=== PATIENT | female | born 1990 | race Caucasian/White ===

== ENCOUNTER 2025-02-24 12:39 | Emergency (ER) | payer BC, SELFPAY ==
--- OUTSIDE RECORDS SUMMARY | 2025-01-15 15:00 | XMS_ITS | Encounter Summary ---
Author Organization Healthcare Address [address] [place] [address] Care Team Providers Care Bean Roaster Name Role Phone Beata Dixon APRN Primary Care Provider [phone] Reason for Referral * Consultation (Routine) - Closed Specialty Diagnoses / Procedures Referred By Jacobo marte Referred To Contact Ophthalmology Diagnoses Rash of face Jony Berman MD [address] [address] Phone: tel: fax: [facility] [address] [place] [address] Phone: tel: fax: Referral ID Status Reason Start Date Expiration Date V isits Requested Visits Authorized [id number] Closed Specialty Services Required 01/15/2025 07/17/2026 1 1 Reason for Visit * Reason Comments Follow-up Encounter Details Date Type Department Care Team (Late st Contact Info) Description 01/15/2025 3:00 PM EDT [facility] [address], [address]rd [place] [address] Jony Berman MD [address] [address] Rash of face (Primary Dx) Social History Tobacco Use Types Packs/Day Years Used Date Smoking Tobacco: Every Day Cigarettes 0.6 22.7 Started: 06/12/2002 Passive Smoke Exposure: Current Smokeless Tobacco: Never Tobacco Cessation:Ready to Q uit: Not Asked; Counseling Given: Not Answered Alcohol Use Standard Drinks/Week Comments No 0 (1 standard drink = 0.6 oz pur e alcohol) PHQ-2 Answer Date Recorded Patient Health Questionnaire-2 Score 0 10/18/2024 PHQ-9 Answer Date Recorded Patient Health Questionnaire-9 Score 0 10/18/2024 Humiliation, Afraid, Rape, and Kick questionnair e Answer Date Recorded Within the last year, have y ou been afraid of your partner or ex-partner? No 11/13/2024 Within the last year, have y ou been humiliated or emotionally abused in other ways by your partner or ex-partner? No Within the last year, have y ou been kicked, hit, slapped, or otherwise physically hurt by your partner or ex-partner? No 11/13/2024 Within the last year, have y ou been raped or forced to have any kind of sexual activity by your partner or ex-partner? No 11/13/2024 Hunger Vital Sign Answer Date Recorded Within the past 12 months, y ou worried that your food would run out before you got the money to buy more. Never true 11/14/19 25 Within the past 12 months, t he food you bought just didn't last and you didn't have money to get more. Never true 11/13/2024 PRAPARE - Transportation Answer Date Re corded In the past 12 months, has l ack of transportation kept you from medical appointments or from getting medications? No 09/2024 In the past 12 months, has l ack of transportation kept you from meetings, work, or from getting things needed for daily living? No 11/13/2024 Housing Stability Vital Sign Answer Oliver e Recorded In the last 12 months, was t here a time when you were not able to pay the mortgage or rent on time? No 11/13/2024 Number of Times Moved in the Last Year Not on fi le 11/13/2024 At any time in the past 12 m [facility], were you homeless or living in a mcc (including now)? No 11/13/2024 Safety and Environment Answer Date Fredy rded Do you worry that your child may have been physically abused? No 02/15/2024 Do you worry that your child may have been sexua lly abused? No 02/15/2024 Are there any guns kept in o r around your home or where your child spends time? No 02/15/2024 Guns Unloaded or Locked Away Not on file 10/2023 Utilities Answer Date Recorded In the past 12 months has [employer], oil, or water [employer] threatened to shut off services in your home? No 11/13/2024 PHQ-2A Answer Date Recorded Patient Health Questionnaire-2 Score 0 07/01/2022 Comments No Sex and Gender Information Value Date Recorded Sex Assigned at Not on file Legal Sex Female 6:22 PM EDT Gender Identity Not on file Sexual Orientation Not on file documented as of this encounter Last Filed Vital Signs Vital Sign Reading Time Taken Comments Blood Pressure 150/91 01/15/2025 3:02 PM EDT Pulse - - Temperature - - Respiratory Rate - - Oxygen Saturation - - Inhaled Oxygen Concentration - - Weight 53 kg (116 lb 13.5 oz) 01/15/2025 3:02 PM EDT Height - - Body Mass Index 20.7 12/06/2024 2:04 PM EDT documented in this encounter Miscellaneous Notes * Progress Notes - Jony Berman MD - 01/15/2025 3:00 PM EDT Dear No ref. provider found I had the pleasure of evaluating your patient. My full evaluation is as follows. HPI: This is a 34 y.o. female who presents for follow up of facial rash. She states it has been present for many months. It at times is red and warm and swollen. It feels tender to her, so she is notwashing her face. She had a MRSA infection initially, and she worries it isn't gone away. She did see dermatology, and they told her it was seborrheic dermatitis - but she feels whatever is going on may be deeper. She states that she did not think they were taking her concerns seriously. She saw rheumatology. She has seen ID. She is not really having nasal drainage. She does feel some nasal congestion. She does note that her fingers are purple and cold. Past Medical History: Reviewed Past Surgical History: Reviewed Medications: Reviewed Allergies: Reviewed Family History: Reviewed and noncontributory. Social History: Reviewed and noncontributory. ROS: A 14 point ROS was completed and is not pertinent aside from the above. Physical Exam: General: No acute distress, generally healthy appearing, and alert and oriented x3. Head/Face: Atraumatic and normocephalic. Sinuses are nontender to palpation. Malar rash with almosthoneycombed crusting. Eyes: Pupils are equal. Extraocular muscles are intact. Nose: Her nose is so tender she did not want us to use a speculum. Therefore, we used the endoscopeand light to simply perform rhinoscopy without touching her nose. Mucosa is healthy. Septum is midline. No inferior turbinate hypertrophy. No obvious masses or polyps. Oral Cavity/Oropharynx: Moist mucous membranes. No masses or lesions noted. Skin: No obvious rashes or lesions. Psychiatric: Normal mood. Normal affect. Judgment is appropriate. Respiratory: Breathing comfortably at a normal rate. No accessory muscle usage. Cardiac: Good turgor. Good cap refill. Procedure: Similar to her last visit, I used to endoscope to get a slightly better view of her anterior rhinoscopy as she wants to avoid nasal speculum usage. Results: I personally reviewed her CT images on December 01, 2024. She has no significant sinonasal inflammationaside from a slight left frontal area of inflammation. I previously reviewed her CT images from July 2024 and March 2024 scans. She has mild maxillary inflammation bilaterally. She does also seem to have a retention cyst in the right posterior ethmoid compartment. Assessment: This is a 34 y.o. female with either an autoimmune or dermatologic condition. Plan: She does certainly have a facial rash. She also has Raynauds. I do not have a clear etiology for her symptoms, but I suspect either a rheumatologic condition or a dermatologic condition. She is worried about her vision and she has some light sensitivity. I will refer her to ophthalmology. I do not believe that her sinuses are causative for her. Thank you for involving me in the care of your patient. Please don't hesitate to contact me if you have any questions or concerns. Jony Berman MD The patient has been counseled on tobacco cessation: Not Applicable documented in this encounter Plan of Treatment Upcoming Encounters Date Type Department Care Team (Late st Contact Info) Description 02/26/2025 3:45 PM EDT Office Visit [facility] Otolaryngology [address]rd [place] [address] Juan Francisco Duarte MD [address] [facility] [address] [place] [address] 03/03/2025 10:30 AM EDT Office Visit [facility] [address] [place] [address] Abby Fox [address] [place] [address] 03/12/2025 12:30 PM EDT Consult [facility] [address], [address] [place] [address] Thierry Walton DO [address] [facility] [address] [place] [address] 03/27/2025 9:00 AM EDT Office Visit Medical Office Building Obstetrics and Gynecology [address] [facility], [address] [place] [address] Nandini Segura, MARKING DEVICES ASSEMBLER [address] [facility] [address] [place] [address] 08/08/2025 9:00 AM EST [facility] Room [address] [place] [address] Jenny Prieto, DDS [address] [facility] [address] [place] [address] Scheduled Referrals Name Type Priority Associated Diagnoses Order Schedule Ambulatory referral to Ophthalmology Outpatient Referral Routine Rash of face 1 Occurrences starting 01/15/2025 until 07/19/2026 documented as of this encounter Visit Diagnoses Diagnosis Rash of face- Primary documented in this encounter Additional Health Concerns Infection Onset Date Last Indicated Resolved Time MRSA 03/18/2024 03/18/2024 Assessment Noted Time PHQ-9 Depression Total Score: 0 10/19/19 11:09 AM EDT A fall risk assessment has been complete d for the patient 10/18/2024 11:09 AM EDT A Body Mass Index follow-up plan has been documented for the patient 01/15/2025 3:35 PM EDT documented as of this encounter Care Teams Bean Roaster Relationship Specialty Start Date End Date Beata Dixon, STEPHANIE [address] [place] [address] PCP - General Family Medicine 10/10/24 documented as of this encounter
--- OUTSIDE RECORDS SUMMARY | 2025-01-23 10:30 | XMS_ITS | Encounter Summary ---
Author Organization [facility] Address [address] [place] [address] Care Team Providers Care Slasher Runner Name Role Phone Beata Dixon APRN Primary Care Provider [phone] Reason for Visit * Reason Comments Eye Pain Blurred Vision * Consultation (Routine) - Closed Specialty Diagnoses / Procedures Referred By Jacobo marte Referred To Contact Ophthalmology Diagnoses Rash of face Jony Berman MD [address] [facility] [address] [place] [address] Phone: tel: fax: [facility] [address] [place] [address] Phone: tel: fax: Referral ID Status Reason Start Date Expiration Date V isits Requested Visits Authorized [id number] Closed Specialty Services Required 01/15/2025 07/17/2026 1 1 Encounter Details Date Type Department Care Team (Late st Contact Info) Description 01/23/2025 10:30 AM EDT Office Visit [facility] [address] [place] [address] Abby Fox [address] [place] [address] Squamous blepharitis of upper and lower eyelids of both eyes (Primary Dx) Social History Tobacco Use Types Packs/Day Years Used Date Smoking Tobacco: Every Day Cigarettes 0.6 22.7 Started: 06/12/2002 Passive Smoke Exposure: Current Smokeless Tobacco: Never Alcohol Use Standard Drinks/Week Comments No 0 [...] any time in the past [address] [facility], were you homeless or living in a fci (including now)? No 11/13/2024 Safety and Environment [...] Recorded In the past 12 months has geovanni e electric, gas, oil, or water company threatened to shut off services in your home? No 11/13/2024 PHQ-2A Answer Date Recorded Patient Health Questionnaire-2 Score 0 07/01/2022 Comments No Sex and Gender Information Value Date Recorded Sex Assigned at Not on file Legal Sex Female 6:22 PM EDT Gender Identity Not on file Sexual Orientation Not on file documented as of this encounter Miscellaneous Notes * Patient Instructions - Abby Fox - 01/23/2025 10:30 AM EDT Hypochlorous acid spray * Progress Notes - Abby Fox - 01/23/2025 10:30 AM EDT 01/23/2025 Patient ID: Arely Carnes is a 34 y.o. female. Patient presents for consultation at the request of Jony Berman MD. HPI Chief Complaint Eye Pain; Blurred Vision HPI Arely Carnes is a 34 y.o. female who presents for consultation requested by Jony Berman MD[facility] causing eye pain and blurred vision. Pt states that back in March she contracted MRSA at the bridge of her nose. Pt reports that its causing both of her eyes to water excessively but mainly the right eye (OD). Pt reports light sensitivity. Pt reports pain when moving her eyes. Pt reports both eyes being blurry. Pt reports that she can't really breath out of her nose. Last edited by Bridget Zurita on 01/23/2025 11:13 AM. Subjective Past Medical History[1] Surgical History[2] Family History[3] Social History[4] Allergies[5] Lab Results Component Value Date HGBA1C 5.3 09/08/2023 ROS Positive for: Eyes Negative for: Constitutional, Gastrointestinal, Neurological, Skin, Genitourinary, Musculoskeletal,HENT, Endocrine, Cardiovascular, Respiratory, Psychiatric, Allergic/Imm, Heme/Lymph Last edited by Bridget Zurita on 01/23/2025 11:02 AM. Current Outpatient Medications (Ophthalmic Drugs) Medication Sig erythromycin (Romycin) 5 MG/GM ophthalmic ointment Apply 1 Application to both eyes 2 times a day for 14 days. No current facility-administered medications for this visit. (Ophthalmic Drugs) Current Outpatient Medications (Other) Medication Sig Buprenorphine HCl-Naloxone HCl (Suboxone) 8-2 MG SL film TAKE 2 FILMS SUBLINGUALLY ONCE DAILY ketoconazole (NIZOral) 2 % cream Apply topically 2 times a day. Use on face as directed. Probiotic Product (PROBIOTIC DAILY PO) Take by mouth. ibuprofen 600 MG tablet Take 1 tablet (600 mg) by mouth every 6 (six) hours. (Patient not taking: Reported on 01/23/2025) No current facility-administered medications for this visit. (Other) Objective Base Eye Exam Visual Acuity (Snellen - Linear) Right Left Dist sc 20/20 20/20 Pt defers. Tonometry Pt defers Pupils Pupils Right PERRL Left PERRL Pt defers Visual [place]aza Right Left Full Full Extraocular Movement Right Left Full Full Full but limited. Reduced patient participation Neuro/Psych Oriented x3: Yes Mood/Affect: Normal Slit Lamp and Fundus Exam Slit Lamp Exam Right Left Lids/Lashes 4+ Blepharitis, Collarettes 4+ Blepharitis, Collarettes Conjunctiva/Sclera injection Normal Cornea nasal infiltrate, debris in tear film Debris in tear film Anterior Chamber unable unable Iris Normal pupil size and shape Normal pupil size and shape Lens Clear Clear Assessment/Plan Assessment & Plan Squamous blepharitis of upper and lower eyelids of both eyes Patient reports having severe pain and limits in ocular movement due to aching. Exam limited by patient participation. Discussed findings with patient and concerns regarding lid hygiene Patient has severe blepharitis with severe buildup on lids and lashes. Few infiltrates suspicious for staph aureus sensitivity reaction from blepharitis. Patient has not been washing/cleaning face due to fear that she is having reaction to water. Discussed option of using distilled water for cleansing. Recommend using hyperchlorous acid spray at least twice daily to improve lid hygiene. Provided patient with sterile saline for cleaning with cotton tipped applicator for cleaning lashes. Start emycin grace bid OU. Will re-check in 2 weeks. Follow up for 2 weeks. Letter sent to referring provider Tobacco Use History[6] The patient has been counseled on tobacco cessation: Yes [1] Past Medical History: Diagnosis Date Headache Personal history of other diseases of the digestive system History of colitis [2] Past Surgical History: Procedure Laterality Date SECTION, CLASSIC SECTION, LOW TRANSVERSE CHOLECYSTECTOMY [3] Family History Problem Relation Name Age of Onset Coronary artery disease Father [4] Social History Socioeconomic History Marital status: Tobacco Use Smoking status: Every Day Current packs/day: 0.25 Average packs/day: 0.6 packs/day for 22.6 years (13.3 ttl pk-yrs) Types: Cigarettes Start date: 06/12/2002 Passive exposure: Current Smokeless tobacco: Never Vaping Use Vaping status: Never Used Substance and Sexual Activity Alcohol use: No Drug use: Defer Sexual activity: Yes Social History Narrative Marital Status: Social Drivers of Health Food Insecurity: No Food Insecurity (11/13/2024) Hunger Vital Sign Worried About Running Out of Food in the Last Year: Never true Ran Out of Food in the Last Year: Never true Transportation Needs: No Transportation Needs (11/13/2024) PRAPARE - Transportation Lack of Transportation (Medical): No Lack of Transportation (Non-Medical): No Received from [employer] ([place], [place], [place], [place]) Family and Community Support Intimate Partner Violence: Not At Risk (11/30/2024) Received from [facility] Abuse Screen Feels Unsafe at Home or Work/School: no Feels Threatened by Someone: no Does Anyone Try to Keep You From Having Contact with Others or Doing Things Outside Your Home?: no Physical Signs of Abuse Present: no Housing Stability: Unknown (11/13/2024) Housing Stability Vital Sign Unable to Pay for Housing in the Last Year: No Homeless in the Last Year: No [5] No Known Allergies [6] Social History Tobacco Use Smoking Status Every Day Current packs/day: 0.25 Average packs/day: 0.6 packs/day for 22.6 years (13.3 ttl pk-yrs) Types: Cigarettes Start date: 06/12/2002 Passive exposure: Current Smokeless Tobacco Never Cosigned by Gogo Almeida, OD at 01/29/2025 7:19 PM EDT Associated attestation - Gogo Almeida, OD - 01/29/2025 7:19 PM EDT I saw and evaluated the patient with the resident/fellow. I discussed the case with the resident/fellow and agree with the findings and plan as documented. documented in this encounter Plan of Treatment Upcoming Encounters Date Type Department Care Team (Late st Contact Info) Description 02/26/2025 3:45 PM EDT Office Visit [facility] Otolaryngology [address], [address] [place] [address] Juan Francisco Duarte MD [address] [facility] [address] [place] [address] 03/03/2025 10:30 AM EDT Office Visit [facility] [address] [place] [address] Abby Fox [address] [place], [place] [id number] 03/12/2025 12:30 PM EDT Consult [facility] [address] [place] [address] Thierry Walton DO [address] [facility] [address] [place] [address] 03/27/2025 9:00 AM EDT Office Visit Medical Office Building Obstetrics and Gynecology [address] [facility], [address] [place] [address] Nandini Segura, LIME KILN AND RECAUSTICIZING OPERATOR [address] [facility] [address] [place] [address] 08/08/2025 9:00 AM EST [facility] Visit [facility] Room [address]214 [address] [place] [address] Jenny Prieto, DDS [address] [facility] [address] [place] [address] documented as of this encounter Visit Diagnoses Diagnosis Squamous blepharitis of upper and lower eyelids of both eyes- Primary documented in this encounter Additional Health Concerns Infection Onset Date Last Indicated Resolved Time MRSA 03/18/2024 03/18/2024 Assessment Noted Time PHQ-9 Depression Total Score: 0 10/19/19 11:09 AM EDT A fall risk assessment has been complete d for the patient 01/23/2025 11:02 AM EDT A Body Mass Index follow-up plan has been documented for the patient 01/15/2025 3:35 PM EDT documented as of this encounter Care Teams Slasher Runner Relationship Specialty Start Date End Date Beata Dixon APRN [address] [place] [address] PCP - General Family Medicine 10/10/24 documented as of this encounter
--- OUTSIDE RECORDS SUMMARY | 2025-02-04 09:30 | XMS_ITS | Encounter Summary ---
Author Organization Healthcare Address [address] [place] [address] Care Team Providers Care Axminster Weaver Name Role Phone ZackBeata hughes Gilberto BROWN Primary Care Provider [phone] Encounter Details Date Type Department Care Team (Late st Contact Info) Description 02/04/2025 9:30 AM EDT Office Visit [facility] [address] [place] [address] Jony Berman MD [address] [place] [address] Rash of face (Primary Dx) Social [...] any time in the past 12 m [facility], were you homeless or living in a group home (including now)? No 11/13/2024 Safety and Environment [...] Recorded In the past 12 months has th e electric, gas, oil, or water company [...] Sign Reading Time Taken Comments Blood Pressure - - Pulse - - Temperature - - Respiratory Rate - - Oxygen Saturation - - Inhaled Oxygen Concentration - - Weight 53 kg (116 lb 13.5 oz) 02/04/2025 9:56 AM EDT Height 160 cm (5' 3 ) 02/04/2025 9:56 AM EDT Body Mass Index 20.7 02/04/2025 9:56 AM EDT documented in this encounter Miscellaneous Notes * Progress Notes - Jony Berman MD - 02/04/2025 9:30 AM EDT Dear Beata Dixon APRN I had the pleasure of evaluating your [...] is going on may be deeper. She is now seeing [facility] and has a skin biopsy planned. She saw rheumatology. She has seen ID. [...] equal. Extraocular muscles are intact. Nose: Her nasal exam appears unchanged. There is external skin change. Oral Cavity/Oropharynx: Moist mucous membranes. No masses [...] to avoid nasal speculum usage. Results: I previously reviewed her CT images on December 01, [...] clear etiology for her symptoms, but I encouraged her to continue follow up with dermatology to potentially diagnose her condition so it can be treated. I appreciate her ophthalmology evaluation - documentation reviewed. I do not believe that her sinuses [...] Description 02/26/2025 3:45 PM EDT Office Visit [facility] Otolaryngology [address] [place] [address] Juan Francisco Duarte MD [address] [place] [address] 03/03/2025 10:30 AM EDT Office Visit [facility] [address] [place] [address] Abby Fox [address] [place] [address] 03/12/2025 12:30 PM EDT Consult [facility] [address] [place] [address] Thierry Walton DO [address] [place] [address] 03/27/2025 9:00 AM EDT Office Visit Medical Office Building Obstetrics and Gynecology [address] [facility], [address] [place] [address] Nandini Segura APRN [address] [facility] [address] [place] [address] 08/08/2025 9:00 AM EST Office Visit [facility] Room [address]214 [address] [place] [address] Jenny Prieto, DDS [address] [facility] [address] [place] [address] documented as of this encounter [...] plan has been documented for the patient 02/04/2025 10:34 AM EDT documented as of this encounter Care Teams Axminster Weaver Relationship Specialty Start Date End Date Beata Dixon APRN [address] [place] [address] PCP - General Family Medicine 10/10/24 documented as of this encounter
--- OUTSIDE RECORDS SUMMARY | 2025-02-13 11:45 | XMS_ITS | Encounter Summary ---
Author Organization Healthcare Address [address] [place] [address] Care Team Providers Care Seaming Machine Operator Name Role Phone Beata Dixon Gilberto BROWN Primary Care Provider Reason for Visit * Reason Comments Follow-up Pt would like to be scoped Encounter Details Date Type Department Care Team (Late st Contact Info) Description 02/13/2025 11:45 AM EDT [facility] [address] [place] [address] Jony Berman MD [address] [place] [address] Rash of face (Primary Dx); Atypical facial pain Social History Tobacco Use Types Packs/Day Years [...] any time in the past 12 m [facility], were you homeless or living in a penitentiary (including now)? No 11/13/2024 Safety and Environment [...] Sign Reading Time Taken Comments Blood Pressure 154/95 02/13/2025 12:05 PM EDT Pulse 93 02/13/2025 12:05 PM EDT Temperature - - Respiratory Rate - - Oxygen Saturation - - Inhaled Oxygen Concentration - - Weight 52.3 kg (115 lb 4.8 oz) 02/13/2025 12:05 PM EDT Height 160 cm (5' 3 ) 02/13/2025 12:05 PM EDT Body Mass Index 20.42 02/13/2025 12:05 PM EDT documented in this encounter Miscellaneous Notes * Progress Notes - Jony Berman MD - 02/13/2025 11:45 AM EDT Dear Jony Berman MD I had the pleasure of evaluating your patient. My full evaluation is as follows. HPI: This is a 34 y.o. female who presents for follow up of facial rash. Her complaints are unchanged. She has a facial rash. She is worried that this is related to a MRSA infection she had. I sent her to dermatology and rheumatology, and she is undergoing workup with them. She does not feel they have taken her complaints seriously. She again comes in concerned that something is affecting deep inside her nose. Past Medical History: Reviewed Past Surgical History: [...] have a clear etiology for her symptoms, and I again reiterated that this does not seem to be a sinus or nasal issue based off ofher largely normal CT scan. I reiterated that we are happy to help her coordinate care if she has difficulty, but I do not believe she needs further evaluation or intervention from a sinonasal standpoint. I encouraged her to continue follow up with dermatology to potentially diagnose her condition so itcan be treated. I appreciate her ophthalmology evaluation - documentation reviewed. She will follow up with me as needed. Thank you for involving me in the care of your patient. Please don't hesitate to contact me if you have any questions or concerns. Jony Berman MD The patient has been counseled on tobacco cessation: Not Applicable documented in this encounter Plan of Treatment Upcoming Encounters Date Type Department Care Team (Late st Contact Info) Description 02/26/2025 3:45 PM EDT Office Visit [facility] Otolaryngology [address], [address] [place] [address] RebeccaJuan Francisco MD [address] [place] [phone] 03/03/2025 10:30 AM EDT Office Visit [facility] Eye [facility] [address] [place] [phone] Fox, Abby E [address] [place] [address] 03/12/2025 12:30 PM EDT Consult [facility] [address] [place] [address] Thierry Walton DO [address] [place] [address] 03/27/2025 9:00 AM EDT Office Visit Medical Office Building Obstetrics and Gynecology [address] [facility], [address] [place] [address] Nandini Segura APRN [address] [facility] [address] [place] [address] 08/08/2025 9:00 AM EST Office Visit [facility] [address] [place] [address] Jenny Prieto, DDS [address] [facility] [address] [place] [address] documented as of this encounter Visit Diagnoses Diagnosis Rash of face- Primary Atypical facial pain Atypical face pain documented in this encounter Additional Health Concerns Infection Onset Date Last Indicated Resolved Time MRSA 03/18/2024 03/18/2024 Assessment Noted Time PHQ-9 Depression Total Score: 0 10/19/19 25 11:09 AM EDT A fall risk assessment has been complete d for the patient 01/23/2025 11:02 AM EDT A Body Mass Index follow-up plan has been documented for the patient 02/13/2025 8:46 PM EDT documented as of this encounter Care Teams Seaming Machine Operator Relationship Specialty Start Date End Date Beata Dixon APRN [address] [place] [address] PCP - General Family Medicine 10/10/24 documented as of this encounter
--- OUTSIDE RECORDS SUMMARY | 2025-02-19 12:40 | XMS_ITS | Encounter Summary ---
Author Organization [facility] Address [address] [place], [place] [id number] Care Team Providers Care Chain Hooker Name Role Phone Beata Dixon APRN Primary Care Provider [phone] Reason for Referral * Consultation (Urgent) - Authorized Specialty Diagnoses / Procedures Referred By Jacobo marte Referred To Contact Neurology Diagnoses Facial pain Chronic nonintractable headache, unspecified headache type Light [place] [address] Phone: tel: fax: Referral ID Status Reason Start Date Expiration Date Visits Requested Visits Authorized [id number] Authorized Specialty Services Required 02/19/2025 08/21/2026 1 1 Reason for Visit * Reason Comments Facial Swelling Encounter Details Date Type Department Care Team (Latest Contact Info) Description 02/19/2025 12:40 PM EDT Office Visit [facility] [address] [place] [address] [place] [address] Facial rash (Primary Dx); Facial pain; Chronic nonintractable headache, unspecified headache type; Light sensitivity Social History Tobacco Use Types Packs/Day Years Used Date Smoking Tobacco: Every Day Cigarettes 0.6 22.7 Started: 06/12/2002 Passive Smoke Exposure: Current Smokeless Tobacco: Never Tobacco Cessation:Ready to Q uit: No; Counseling Given: Yes Alcohol Use Standard Drinks/Week Comments No 0 (1 standard drink = 0.6 oz pur e alcohol) PHQ-2 Answer Date Recorded Patient Health Questionnaire-2 Score 0 02/19/2025 PHQ-9 Answer Date Recorded Patient Health Questionnaire-9 Score 0 02/19/2025 Humiliation, Afraid, Rape, and Kick questionnair e [...] any time in the past 12 m [facility], were you homeless or living in a assisted (including now)? No 11/13/2024 Safety and Environment [...] Recorded In the past 12 months has [employer] electric, gas, oil, or water company threatened [...] Sign Reading Time Taken Comments Blood Pressure 114/74 02/19/2025 1:06 PM EDT Pulse 79 02/19/2025 1:06 PM EDT Temperature - - Respiratory Rate - - Oxygen Saturation 99% 02/19/2025 1:06 PM EDT Inhaled Oxygen Concentration - - Weight 52 kg (114 lb 10.2 oz) 02/19/2025 1:06 PM EDT Height 157.5 cm (5' 2 ) 02/19/2025 1:06 PM EDT Body Mass Index 20.97 02/19/2025 1:06 PM EDT documented in this encounter Functional Status * Over the past 2 weeks, how often have you been bothered by any of the following problems? Question Answer Date of Assessment Author Little interest or pleasure in doing things Not at all 02/19/2025 1:07 PM EDT Carlton Dey Feeling down, depressed, or hopeless Not at all 02/19/2025 1:07 PM EDT Anjel Dey R Patient Health Questionnaire-2 Score 0 02/19/2025 1:07 PM EDT Thuy Dey * Question Answer Date of Assessment Author Trouble falling or staying asleep, or sleeping too much Not at all 02/19/2025 1:07 PM EDT Silvino Garsia Feeling tired or having little energy Not at all 02/19/2025 1:07 PM EDAnjel Zuniga Poor appetite or overeating Not at all 02/19/2025 1: 07 PM Silvino Dhillon Feeling bad about yourself - or that you are a failure or have let yourself or your family down Not at all 02/19/2025 1:07 PM Anjel Dhillon Trouble concentrating on things, such as reading the newspaper or watching television Not at all 02/19/2025 1:07 PM Anjel Dhillon Moving or speaking so slowly that other people could have noticed? Or the opposite - being so fidgety or restless that you have been moving around a lot more than usual. Not at all 02/19/2025 1:07 PM Silvino Cao Thoughts that you would be better off or hurting yourself in some way Not at all 02/19/2025 1:07 PM Carlton Dhillon Patient Health Questionnaire-9 Score 0 02/19/2025 1:07 PM Thuy Dhillon * Calculated C-SSRS Risk Score (Lifetime/Recent) Answer Date of Assessment Author No Risk Indicated 02/19/2025 1:07 PM Silvino Cao * If you checked off any problems on this questionnaire so far, Question Answer Date of Assessment Author How difficult have these problems made it for you to do your work, take care of things at home, or get along with other people? Not difficult at all 02/19/2025 1:07 PM Carlton Dhillon * Question Answer Date of Assessment Author 1. Wish to be (Past 1 Month) No 025 1:07 PM Silvino Dhillon 2. Non-Specific Active Suici rosalee Thoughts (Past 1 Month) No 02/19/2025 1:07 PM Jose Dhillon 6. Suicidal Behavior (Lifetime) No 1:07 PM Silvino Dhillon documented as of this encounter Miscellaneous Notes * Progress Notes - Beata Dixon APRN - 02/19/2025 12:40 PM EDT Subjective Patient ID: Arely Carnes is a 34 y.o. female. Chief Complaint Patient presents with Facial Swelling Here for follow-up on facial rash. This is a chronic issue for which she has seen several specialists including dermatology, ENT, ID, and rheumatology. She has been treated with Bactrim, doxycycline,Augmentin, and prednisone without improvement. Derm had her on topical ketoconazole and steroid forseborrheic dermatitis, but patient says it didn't help. She also recently saw ophthalmology due to eye symptoms. They prescribed erythromycin ophthalmic, but patient says she isn't currently using this. Now just washing the face with soap and water. Has follow-up with the eye doctor next week. She reports ongoing pain and pressure across the face, behind eyes and forehead that is causing headaches. Reports pus leaking out of her eyes and sun sensitivity. Followed up with ENT yesterday, they didn't see anything. They were concerned for mental illness. Patient denies depression or anxiety. Leola sees a counselor once/month. The following portions of the chart were reviewed this encounter and updated as appropriate: Tobacco Allergies Meds Problems Med Hx Surg Hx Fam Hx Current Medications[1] Review of Systems A 14 point ROS reviewed and is otherwise negative except as per HPI. Objective Visit Vitals BP 114/74 Pulse 79 Ht 1.575 m (5' 2 ) Wt 52 kg (114 lb 10.2 oz) SpO2 99% BMI 20.97 kg/m?? OB Status Having periods Smoking Status Every Day BSA 1.51 m?? Body mass index is 20.97 kg/m??. Physical Exam Vitals reviewed. Constitutional: General: She is not in acute distress. HENT: Right Ear: External ear normal. Left Ear: External ear normal. Mouth/Throat: Mouth: Mucous membranes are moist. Eyes: Conjunctiva/sclera: Conjunctivae normal. Pulmonary: Effort: Pulmonary effort is normal. Skin: General: Skin is warm and dry. Comments: Facial rash that appears improved from patient's last visit in November. Neurological: Mental Status: She is alert and oriented to person, place, and time. Psychiatric: Behavior: Behavior normal. Comments: Flat affect. Assessment/Plan 1. Facial rash (Primary) Actually appears a little improved from the last time I saw her. Continue with Dermatology as scheduled. 2. Facial pain 3. Chronic nonintractable headache, unspecified headache type 4. Light sensitivity Chronic, worsening condition. Unclear etiology despite significant workup. Discussed possible causes. Continue with eye doctor as scheduled. Will have her evaluated by Neurology as well. Discussed that if they didn't find anything we could consider pain management for possible myofascial pain syndrome or even consider acupuncture. - Ambulatory referral to Neurology; Future Time Spent: I personally spent a total of 33 minutes on this encounter. This time includes face to face with patient, review of records, documentation, counseling and discussion and/or coordination of care. Beata Dixon APRN [1] Current Outpatient Medications: Buprenorphine HCl-Naloxone HCl (Suboxone) 8-2 MG SL film, TAKE 2 FILMS SUBLINGUALLY ONCE DAILY, Disp: , Rfl: erythromycin (Romycin) 5 MG/GM ophthalmic ointment, Apply 1 Application to both eyes 2 times a day for 14 days., Disp: 3.5 g, Rfl: 0 ketoconazole (NIZOral) 2 % cream, Apply topically 2 times a day. Use on face as directed., Disp: 30g, Rfl: 0 Probiotic Product (PROBIOTIC DAILY PO), Take by mouth., Disp: , Rfl: documented in this encounter Plan of Treatment Upcoming Encounters Date Type Department Care Team (Late st Contact Info) Description 02/26/2025 3:45 PM EDT Office Visit [facility] [address] [place] [address] Hickory ValleyJuan Francisco MD [address] [place] [address] 03/03/2025 10:30 AM EDT Office Visit [facility] [address] [place] [phone] Abby Fox [address] [place] [address] 03/12/2025 12:30 PM EDT Consult [place] [facility] [address] [place] [address] Thierry Walton DO [address] [place] [address] 03/27/2025 9:00 AM EDT Office Visit Medical Office Building Obstetrics and Gynecology [address] [facility], [address] [place] [address] Nandini Segura APRN [address] [facility] [address] [place] [address] 08/08/2025 9:00 AM EST Office Visit [facility] [address] [place] [address] Jenny Prieto, DDS [address] [facility] [address] [place] [address] Scheduled Referrals Name Type Priority Associated Diagnoses Orde r Schedule Ambulatory referral to Neurology Outpatient Referral Routine Facial pain Chronic nonintractable headache, unspecified headache type Light sensitivity Expected: 02/19/2025 (Approximate), Expires: 08/23/2026 documented as of this encounter Visit Diagnoses Diagnosis Facial rash- Primary Facial pain Headache Chronic nonintractable headache, unspecified headache type Light sensitivity Acute dermatitis due to solar radiation documented in this encounter Additional Health Concerns Infection Onset Date Last Indicated Resolved Time MRSA 03/18/2024 03/18/2024 Assessment Noted Time PHQ-9 Depression Total Score: 0 02/20/20 25 1:07 PM EDT A fall risk assessment has been complete d for the patient 01/23/2025 11:02 AM EDT A Body Mass Index follow-up plan has been documented for the patient 02/19/2025 2:26 PM EDT documented as of this encounter Care Teams Chain Hooker Relationship Specialty Start Date End Date Beata Dixon APRN [address] [place] [id number] PCP - General Family Medicine 10/10/24 documented as of this encounter
--- OUTSIDE RECORDS SUMMARY | 2025-02-22 15:30 | XMS_ITS | Encounter Summary ---
Author Organization [employer] ([place], [place], [place], [place]) Address [address] [place] [address] Care Team Providers Care Clinical Administrator Name Role Phone Beata Dixon Primary Care Provider [phone] Reason for Visit * Reason Comments Facial Swelling Pt c/o facial swelli ng and nasal congestion since Mar 2024. Encounter Details Date Type Department Care Team (Late st Contact Info) Description 02/22/2025 3:30 PM EDT - 02/22/2025 5:14 PM EDT Emergency [facility] Emergency Department [address] [place] [address] Facial swelling (Primary Dx); Facial pain; Facial rash; Sinus pain; Nasal congestion Discharge Disposition: Home or Self Care Social History Tobacco Use Types Packs/Day Years Used Date Smoking Tobacco: Every Day Cigarettes Smokeless Tobacco: Never Alcohol Use Standard Drinks/Week Comments Not Currently 0 (1 standard drink = 0.6 oz pur e alcohol) Family and Community Support Answer Oliver e Recorded Help with Day to Day Activities Not on file 07/01/2023 Feeling Lonely or Isolated Not on file 07/01 Educational Attainment Answer Date Fredy rded Speak language other than Ukrainian at home Not on file 07/01/2023 Want help with school or training Not on file 07/01/2023 Substance Use Answer Date Recorded Used prescription meds for non-medical reasons N ot on file 07/01/2023 Used illegal drugs past 12 months Not on file 07/01/2023 Comments No Sex and Gender Information Value Date Recorded Sex Assigned at Not on file Legal Sex Female 8:26 AM CDT Gender Identity Not on file Sexual Orientation Not on file documented as of this encounter Last Filed Vital Signs Vital Sign Reading Time Taken Comments Blood Pressure 145/83 02/22/2025 3:34 PM EDT Pulse 98 02/22/2025 3:34 PM EDT Temperature 36.6 C (97.8 F) 02/22/2025 3:34 PM EDT Respiratory Rate 15 02/22/2025 3:34 PM EDT Oxygen Saturation 100% 02/22/2025 3:35 PM EDT Inhaled Oxygen Concentration - - Weight 51.7 kg (114 lb) 02/22/2025 3:34 PM EDT Height 162.6 cm (5' 4 ) 02/22/2025 3:34 PM EDT Body Mass Index 19.57 02/22/2025 3:34 PM EDT documented in this encounter Discharge Instructions * Discharge Instructions* Melissa Anderson PA-C - 02/22/2025 4:50 PM EDT Follow-up with your primary care provider and all of the specialist that she has scheduled including: [facility] eye care clinic on 02/24/2025 at 9:30 AM, ENT on 02/26/2025 at 3:45 PM, neurosciences clinic on 03/12/2025 at 12:30 PM, [facility] clinic on 03/27/2025 at 9 AM, and orofacial pain clinic on 08/08/2025 at 9 AM. All of these are appropriate referrals that your primary care provider has scheduled for you. Make sure to keep all of these appointments for further evaluation of your unknown condition. These clinics may be able to see you sooner if they have cancellations. Call them on a regular basis to check for cancellations. If you have not already seen an SECURITY ASSURANCE ANALYST, you may need to be referred to them as well. Return to the ED for new concerns or worsening condition. * Attachments The following attachments cannot be sent through Care Everywhere. * Rash Adult (Ukrainian) * Sinus Pain (Ukrainian) documented in this encounter Medications at Time of Discharge aluminum sulfate-calcium acetate ([place]) 952-1,347 mg topical powder packet Apply 1 packet topically 4 (four) times daily as needed Use on WET dishidrotic eczema lesions QID PRN; not for use on dry lesions.. 30 packet 02/22/2025 buprenorphine-nalo xone (SUBOXONE) 8-[address] under the tongue daily. 09/02/2023 cyanocobalamin (VITAMIN B-12) 1,000 mcg/mL injection Inject 1 mL (1,000 mcg total) intramuscularly. 03/27/2023 docusate sodium (COLACE) 100 MG capsule Take 1 capsule (100 mg total) by mouth 2 (two) times daily as needed. 08/04/2023 ibuprofen (MOTRIN) 600 MG tablet Take 1 tablet (600 mg total) by mouth 3 (three) times daily as needed for pain for up to 10 days Take TID for 3 days, THEN TID PRN pain.. 30 tablet 02/22/2025 linaCLOtide (Linzess) 290 mcg CapIndications:Chr onic constipation Take 1 capsule (290 mcg total) by mouth daily. 30 capsule 1 09/27/2023 documented as of this encounter Plan of Treatment Not on file documented as of this encounter Visit Diagnoses Diagnosis Facial swelling- Primary Swelling, mass, or lump in head and neck Facial pain Headache Facial rash Sinus pain Other diseases of nasal cavity and sinuses Nasal congestion Other diseases of nasal cavity and sinuses documented in this encounter Care Teams Clinical Administrator Relationship Specialty Start Date End Date Beata Dixon [address] [place] [phone] PCP - General 02/22/25 documented as of this encounter
[2025-02-24 12:44] VITALS: BP 142/99; PULSE 98; RESP 18; TEMP 36.7; O2SAT 99; BMI 20.2
--- OUTSIDE RECORDS SUMMARY | 2025-02-24 12:46 | XMS_ITS | Encounter Summary ---
Author Organization Healthcare Address [address] [place] [address] Care Team Providers Care Swimmer Name Role Phone Beata Dixon APRN Primary Care Provider [phone] Bessie Meade DO Primary Care Provider [phone] Beata Dixon APRN Primary Care Provider [phone] Encounter Details Date Type Department Care Team (Late st Contact Info) Description 04/17/2024 Community [facility] [address] [place] [address] Sid Panchal MD [address] [place] [address] Acute recurrent ethmoidal sinusitis (Primary Dx); Atypical facial pain; Acute recurrent sinusitis, unspecified location Social History Tobacco Use Types Packs/Day Years Used Date Smoking Tobacco: Every Day Cigarettes 1 22.7 Started: 2002 Smokeless Tobacco: Never Alcohol Use Standard Drinks/Week Comments No 0 (1 standard drink = 0.6 oz pur e alcohol) Humiliation, Afraid, Rape, and Kick questionnair e Answer Date Recorded Within the last year, have y ou been afraid of your partner or ex-partner? No 02/15/2024 Within the last year, have y ou been humiliated or emotionally abused in other ways by your partner or ex-partner? No Within the last year, have y ou been kicked, hit, slapped, or otherwise physically hurt by your partner or ex-partner? No 02/15/2024 Within the last year, have y ou been raped or forced to have any kind of sexual activity by your partner or ex-partner? No 02/15/2024 PHQ-2 Answer Date Recorded Patient Health Questionnaire-2 Score 0 03/27/2024 Hunger Vital Sign Answer Date Recorded Within the past 12 months, y ou worried that your food would run out before you got the money to buy more. Never true 02/15/20 24 Within the past 12 months, t he food you bought just didn't last and you didn't have money to get more. Never true 02/15/2024 PRAPARE - Transportation Answer Date Re corded In the past 12 months, has l ack of transportation kept you from medical appointments or from getting medications? No 10/2023 In the past 12 months, has l ack of transportation kept you from meetings, work, or from getting things needed for daily living? No 02/15/2024 Housing Stability Vital Sign Answer Oliver e Recorded In the last 12 months, was t here a time when you were not able to pay the mortgage or rent on time? No 02/15/2024 In the last 12 months, how many places have you lived? 1 02/15/2024 In the last 12 months, was t here a time when you did not have a steady place to sleep or slept in a group home (including now)? No 02/15/2024 Safety and Environment Answer Date Fredy rded [...] shut off services in your home? No 02/15/2024 PHQ-2A Answer Date Recorded Patient Health Questionnaire-2 Score 0 07/01/2022 Comments No Sex and Gender Information Value Date Recorded Sex Assigned at Not on file Legal Sex Female 6:22 PM EDT Gender Identity Not on file Sexual Orientation Not on file documented as of this encounter Plan of Treatment Upcoming Encounters Date Type Department Care Team (Late st Contact Info) Description 02/26/2025 3:45 PM EDT Office [facility] [address], [address] [place] [address] Juan Francisco Duarte MD [address] [facility] [address] [place] [address] 03/03/2025 10:30 AM EDT Office Visit [facility] [address] [place] [address] Abby Fox [address] [place] [address] 03/12/2025 12:30 PM EDT [facility] [address], [address] [place] [address] Thierry Walton DO [address] [facility] [address] [place] [address] 03/27/2025 9:00 AM EDT Office Visit [facility] Ob[facility]s [facility] Gynecology [address] [facility], [address] [place] [address] Nandini Segura, SHRIMP PEELER [address] [facility] [address] [place] [address] 08/08/2025 9:00 AM EST [facility] Room [address] [place] [address] Jenny Prieto DDS [address] [facility] [address] [place] [address] documented as of this encounter Visit Diagnoses Diagnosis Acute recurrent ethmoidal sinusitis- Primary Atypical facial pain Atypical face pain Acute recurrent sinusitis, unspecified location documented in this encounter Additional Health Concerns Infection Onset Date Last Indicated Resolved Time MRSA 03/18/2024 03/18/2024 Assessment Noted Time A Body Mass Index follow-up plan has been documented for the patient 03/27/2024 10:28 AM EDT documented as of this encounter Care Teams Swimmer Relationship Specialty Start Date End Date Beata Dixon APRN [address] [place] [address] PCP - General Family Medicine 10/03/23 06/24/24 Bessie Meade DO [address] [place] [address] PCP - General 06/25/24 10/09/24 Beata Dixon APRN [address] [place] [address] PCP - General Family Medicine 10/10/24 documented as of this encounter
--- OUTSIDE RECORDS SUMMARY | 2025-02-24 12:46 | XMS_ITS | Encounter Summary ---
Author Organization Healthcare Address [address] [place] [address] Care Team Providers Care Supervisor Instrument Maintenance Name Role Phone Beata Dixon APRN Primary Care Provider [phone] Bessie Meade DO Primary Care Provider [phone] Beata Dixon APRN Primary Care Provider [phone] Encounter Details Date Type Department Care Team (Late st Contact Info) Description 04/10/2024 Outside Procedure External Location [address] [place] [address] Fariba Hernandez, STEPHANIE, DNP [address] [place] [address] Social History Tobacco Use Types Packs/Day Years [...] place to sleep or slept in a [facility] (including now)? No 02/15/2024 Safety and Environment [...] as of this encounter Miscellaneous Notes * Result Encounter Note - Fariba Hernanedz, DIRECTOR AIRPORT OPERATIONS, DNP - 04/10/2024 3:00 PM EDT Called and informed patient with results. Will refer to ENT for further evaluation. Will prescribe floanse and azelestine. Dont want to start antibiotic since she has been on a lot of antibiotics recently. documented in this encounter Plan of Treatment Upcoming Encounters Date Type Department Care Team (Late st Contact Info) Description 02/26/2025 3:45 PM EDT Office Visit [facility] Otol[facility] [address] [place] [address] Juan Francisco Duarte MD [address] [facility] [address] [place] [address] 03/03/2025 10:30 AM EDT Office Visit [facility] [address] [place] [address] Abby Fox [address] [place] [address] 03/12/2025 12:30 PM EDT Consult [facility] [address] [place] [address] Thierry Walton DO [address] [facility] [address] [place] [address] 03/27/2025 9:00 AM EDT Office Visit Medical Office Building Obstetrics and Gynecology [address] [facility], [address] [place] [address] Nandini Segura APRN [address] [facility] [address] [place] [address] 08/08/2025 9:00 AM EST Office Visit [facility] [address] [place] [address] Nick Prietoia, DDS [address] [place] [address] documented as of this encounter Procedures Procedure Name Priority Date/Time Associated Diagnosis Comments CT FACE WO IV CONTRAST 04/10/2024 1:43 PM EDT documented in this encounter Results * CT Face wo IV Contrast (04/10/2024 1:43 PM EDT) Anatomical Region Laterality Modality Facial bones Computed Tomogra phy 04/10/2024 1:43 PM EDT Narrative 04/10/2024 2:58 [place] [address] Name: JAYLYN CARNES Exam Date: 04/10/2024 : 1990 Age 33 years Gender: F Physician: Fariba Hernandez Facility: [facility] Facility HSV: Outpatient Exam: CT SINUS W/O PROCEDURE DESCRIPTION: CT SINUSES WITHOUT IV CONTRAST CLINICAL INDICATION: MRSA infection, facial pain, skin lesion, sinus pressure. COMPARISON: No prior studies were compared. The CT exam was performed using one or more of the following dose reduction techniques: Automated exposure control, adjustment of the mA and/or kV according to the patient's size, or use of iterative reconstruction technique. FINDINGS: The globes and extraocular muscles are unremarkable. There is no evidence of acute fracture of the face. There is no orbital blowout fracture. There is right posterior ethmoid and right maxillary sinus mucosal thickening. IMPRESSION: Paranasal sinus mucosal thickening as described above. Electronically signed by:Gus Coronel MD04/10/2024 02:55 PM EDT Dictated By: GUS CORONEL Transcribed By: Transcribed On: 04/10/2024 1:53 PM Electronically signed by: GUS CORONEL 04/10/2024 Thank you for referring JAYLYN CARNES to [facility]. Legally authenticated by BERNA Pedroza 2024-04-10 13:53:59 Procedure Note Provider, [facility] 04/10/2024 [facility] [address] [place] [address] Name: JAYLYN CARNES Exam Date: 04/10/2024 : 1990 Age 33 years Gender: F Physician: Fariba Hernandez Facility: [facility] Facility HSV: Outpatient Exam: CT SINUS W/O PROCEDURE DESCRIPTION: CT SINUSES WITHOUT IV CONTRAST CLINICAL INDICATION: MRSA infection, facial pain, skin lesion, sinuspressure. COMPARISON: No prior studies were compared. The CT exam was performed using one or more of the following dosereduction techniques: Automated exposure control, adjustment of the mA and/or kV according to the patient's size, or use of iterative reconstructiontechnique. FINDINGS: The globes and extraocular muscles are unremarkable. There is no evidence of acute fracture of the face. There is no orbital blowout fracture. There is right posterior ethmoid and right maxillarysinus mucosal thickening. IMPRESSION: Paranasal sinus mucosal thickening as described above. Electronically signed by:Gus Coronel MD04/10/2024 02:55 PM EDT Dictated By: GUS CORONEL Transcribed By: Transcribed On: 04/10/2024 1:53 PM Electronically signed by: GUS CORONEL 04/10/2024 Thank you for referring JAYLYN CARNES to [facility]. Legally authenticated by BERNA Pedroza 2024-04-10 13:53:59 Fariba Hernandez DIRECTOR AIRPORT OPERATIONS, DNP IMG CT PROCEDURES Fin al Result documented in this encounter Visit Diagnoses Not on filedocumented in this encounter Additional Health Concerns Infection Onset Date Last Indicated Resolved Time MRSA 03/18/2024 03/18/2024 Assessment Noted Time A Body Mass Index follow-up plan has been documented for the patient 03/27/2024 10:28 AM EDT documented as of this encounter Care Teams Supervisor Instrument Maintenance Relationship Specialty Start Date End Date Beata Dixon APRN [address] [place] [address] PCP - General Family Medicine 10/03/23 06/24/24 Bessie Meade DO [address] [place] [address] PCP - General 06/25/24 10/09/24 Beata Dixon APRN [address] [place] [address] PCP - General Family Medicine 10/10/24 documented as of this encounter
--- OUTSIDE RECORDS SUMMARY | 2025-02-24 12:46 | XMS_ITS | Encounter Summary ---
Author Organization Healthcare Address [address] [place] [address] Care Team Providers Care Instrument Repairer Helper Name Role Phone Beata Dixon APRN Primary Care Provider [phone] Bessie Meade DO Primary Care Provider [phone] Beata Dixon APRN Primary Care Provider [phone] Encounter Details Date Type Department Care Team (Late st Contact Info) Description 04/10/2024 Orders Only External Location [address] [place] [address] Provider, External Social History Tobacco Use Types Packs/Day Years [...] place to sleep or slept in a [place] [facility] [place] (including now)? No 02/15/2024 Safety and Environment [...] Description 02/26/2025 3:45 PM EDT [facility] [address], 3[address] [place] [address] [place] [address] [place] [address] 03/03/2025 10:30 AM EDT Office Visit [facility] [address] [facility] [place] [address] Abby Fox [address] [place] [address] 03/12/2025 12:30 PM EDT Consult [facility] [address] [place] [address] Thierry Walton DO [address] [place] [address] 03/27/2025 9:00 AM EDT Office Visit Medical Office Building Obstetrics and Gynecology [address] [facility], [address] [place] [address] Nandini Segura, MALTED MILK MASHER [address] [facility] [address] [place] [address] 08/08/2025 9:00 AM EST Office Visit [facility] Room [address] [place] [address] Jenny Prieto, DDS [address] [facility] [address] [place] [address] documented as of this encounter Procedures Procedure Name Priority Date/Time Associated Diagnosis Comments CT OUTSIDE IMAGES 04/10/2024 1:49 PM EDT documented in this encounter Results * CT OUTSIDE IMAGES (04/10/2024 1:49 PM EDT) Anatomical Region Laterality Modality Computed Tomogra phy 04/10/2024 1:49 PM EDT us External Provider IMG CT PROCEDURES Final Result documented in this encounter Visit Diagnoses Not on filedocumented in this encounter Additional Health Concerns Infection Onset Date Last Indicated Resolved Time MRSA 03/18/2024 03/18/2024 Assessment Noted Time A Body Mass Index follow-up plan has been documented for the patient 03/27/2024 10:28 AM EDT documented as of this encounter Care Teams Instrument Repairer Helper Relationship Specialty Start Date End Date Beata Dixon APRN [address] [place] [address] PCP - General Family Medicine 10/03/23 06/24/24 Bessie Meade DO [address] [place] [address] PCP - General 06/25/24 10/09/24 Beata Dixon APRN [address] [place] [address] PCP - General Family Medicine 10/10/24 documented as of this encounter
--- OUTSIDE RECORDS SUMMARY | 2025-02-24 12:47 | XMS_ITS | Clinical Summary ---
Author Organization Healthcare Address [place] [address] Care Team Providers Care Ethnographer Name Role Phone Beata Dixon Gilberto BROWN Primary Care Provider [phone] Allergies No known active allergies Medications Buprenorphine HCl-Naloxone HCl (Suboxone) 8-2 MG SL film TAKE 2 FILMS SUBLINGUALLY ONCE DAILY 07/10/19 22 Active Probiotic Product (PROBIOTIC DAILY PO) Take by mouth. Activ e ibuprofen 600 MG tablet Take 1 tablet (600 mg) by mouth every 6 (six) hours. 05/15/20 24 025 Discontinued ketoconazole (NIZOral) 2 % creamIndicatio ns:Facial rash Apply topically 2 times a day. Use on face as directed. 30 g 11/14/19 25 025 Discontinued erythromycin (Romycin) 5 MG/GM ophthalmic ointmentIndica tions:Squamous blepharitis of upper and lower eyelids of both eyes Apply 1 Application to both eyes 2 times a day for 14 days. 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 BM once per week. Fecal stasis noted on CT scan. May be related to Suboxone use. Can try MiraLAX, Colace and fiber supplements. 11/30/2023; States constipation not improving on Miralax; now with BM q 2 wks. Has rx for new medication from GI. Likely opioid induced constipation. Abnormal feces 11/10/2023 Chronic idiopathic constipation 11/01/2023 Hernia of anterior abdominal wall 10/05/2023 Overview (01/08/2024): 10/30/2023; Negative evaluation by [facility]; no evidence of Hernia on CT or exam. Abdominal pressure 10/05/2023 Overview (01/08/2024): Since 07/2023 after straining. Diffuse bilateral lower abdomen. 11/30/2023 lower pelvic pressure likely due to chronic constipation. Opioid-induced constipation with BM every [address] scan and evaluation by general surgery. Lower abdominal pain 10/04/2023 Ureteropelvic junction (UPJ) obstruction 024 Hydronephrosis 10/04/2023 Colitis 10/16/2020 HTN (hypertension) 09/29/2020 Missed period 09/29/2020 Abnormal EKG 08/21/2020 Hydronephrosis of left kidney 07/31/2019 Low back pain 07/31/2019 Dry scalp 07/12/2019 Hair thinning 07/12/2019 Encounters Date Type Department Care Team Description 02/24/2025 Telephone [facility] [address] [place] [address] Abby Fox 02/20/2025 Orders Only [facility] [address] [place] [address] Briggs, Flora, ASSOCIATE PROFESSOR OF THEATRE Facial rash (Primary Dx); Facial pain; MRSA infection 02/19/2025 12:40 PM EDT Office Visit [facility] [address] [place] [address] Beata Dixon APRN Facial rash (Primary Dx); Facial pain; Chronic nonintractable headache, unspecified headache type; Light sensitivity 02/19/2025 Travel 02/13/2025 11:45 AM EDT Office Visit [facility] Otolaryngology [address] [address] Jony Berman MD Rash of face (Primary Dx); Atypical facial pain 02/13/2025 Telephone [facility] Eye [address] [address] Abby Fox HCN - Patient Message 02/13/2025 Telephone [facility] Otolaryngology [address] [place] [address] Jony Berman MD HCN Clinical Concern/Question 02/13/2025 Travel 02/13/2025 Orders Only [facility] [address] [place] [address] Beata Dixon APRN Health maintenance examination (Primary Dx) 02/11/2025 Telephone [facility] Otolaryngology [address] [address] Francie Cabrales 02/07/2025 Telephone [facility] [address] [place] [address] Rebeca Lynch, RN 02/07/2025 Orders Only [facility] [address] [place] [address] Beata Dixon APRN Facial twitching (Primary Dx) 02/05/2025 Telephone [facility] Otolaryngology [address] [address] Francie Cabrales 02/04/2025 9:30 AM EDT Office Visit [facility] Otolaryngology [address] [address] Jony Berman MD Rash of face (Primary Dx) 02/04/2025 Travel 01/31/2025 Telephone [facility] [address] [place] [address] Kailee Baldwin 01/23/2025 10:30 AM EDT Office Visit [facility] [address] [place] [address] Abby Fox Squamous blepharitis of upper and lower eyelids of both eyes (Primary Dx) 01/23/2025 Telephone [facility] [address] [place] [address] Abby Fox 01/23/2025 Travel 01/17/2025 Telephone [facility] [address] [place] [address] None, None HCN Same Day Appt/Overbook Request 01/15/2025 3:00 PM EDT Office Visit [facility] Otolaryngology [address] [address] Jony Berman MD Rash of face (Primary Dx) 01/15/2025 Travel 01/13/2025 Orders Only External Location [address] [place] [address] Provider, [facility] 12/31/2024 Orders Only [facility] [address] [place] [address] Beata Dixon APRN Facial rash (Primary Dx) 12/06/2024 1:45 PM EDT Office Visit [facility] Otolaryngology [address] [address] Jony Berman MD Rash of face (Primary Dx) 12/06/2024 Travel 12/03/2024 Telephone [facility] Otolaryngology [address] [place] [address] Francie Cabrales 12/01/2024 Orders Only External Location [address] [place] [address] Provider, External 12/01/2024 Outside Procedure External Location [address] [place] [address] Provider, aSndip Ruasch 12/01/2024 Orders Only External Location [address] [place] [address] Provider, Sandip Rausch from Last 3 Months Family History Medical History Relation Name Comments Coronary artery disease Father Relation Name Status Comments Father Social History Tobacco Use Types Packs/Day Years [...] any time in the past 12 m [facility], were you homeless or living in a intermediate (including now)? No 11/13/2024 Safety and Environment [...] on file Sexual Orientation Not on file Last Filed Vital Signs Vital Sign Reading Time Taken Comments Blood Pressure 114/74 02/19/2025 1:06 PM EDT Pulse 79 02/19/2025 1:06 PM EDT Temperature 36.7 C (98.1 F) 10/18/2024 11:10 AM EDT Respiratory Rate 18 11/13/2024 3:27 PM EDT Oxygen Saturation 99% 02/19/2025 1:06 PM EDT Inhaled Oxygen Concentration - - Weight 52 kg (114 lb 10.2 oz) 02/19/2025 1:06 PM EDT Height 157.5 cm (5' 2 ) 02/19/2025 1:06 PM EDT Body Mass Index 20.97 02/19/2025 1:06 PM EDT Plan of Treatment Upcoming Encounters Date Type Department Care Team (Late st Contact Info) Description 02/26/2025 3:45 PM EDT Office Visit [facility] Otolaryngology [address] [place] [address] Juan Francisco Duarte MD [address] [facility] [address] [place] [address] 03/03/2025 10:30 AM EDT Office Visit [facility] Care [address] [place] [address] Abby Fox [address] [place] [address] 03/12/2025 12:30 PM EDT Consult [facility] [address] [place] [address] Thierry Walton DO [address] [facility] [address] [place] [address] 03/27/2025 9:00 AM EDT Office Visit [facility] Obstetrics [facility] Gynecology [address] [facility], [address] [place] [address] Nandini Segura, STEPHANIE [address] [facility] [address] [place] [address] 08/08/2025 9:00 AM EST Office Visit [facility] [address] [place] [address] Jenny Prieto DDS [address] [facility] [address] [place] [address] Health Maintenance Due Date Last Done Comments [facility]-Infant/Child/Adol SDOH Screenings 1989 [facility]-Varicella Vaccines (1 of 2 - 13+ 2-dose series) 2002 [facility]-DTaP,Tdap,and Td Vaccines (1 - Tdap) 2008 [facility]-Hepatitis B Vaccines (1 of 3 - 19+ 3-dose series) 2008 [facility]-Pneumococcal Vaccine: Pediatrics (0 to 5 Years) and At-Risk Patients (6 to 49 Years) (1 of 2 - PCV) 2008 [facility]-Pap Smear 2010 HPV Vaccines (1 - 3-dose SCDM series) 2016 [facility]-Cervical Cancer Screening 2019 [facility]-HPV/Cotest 2019 [facility]- SDOH Screenings 05/15/2025 [facility]-Adult SDOH Screenings 05/15/2025 11/13/2024 [facility]-Depression Screening 02/19/2026 025, 02/19/2025 [facility]-HIV Screening Completed 09/08/2023, 07/31/2019 [facility]-Hepatitis C Screening Completed 2023, 07/31/2019 [id number] Vaccine Discontinued [facility]-HIB Vaccines Aged Out No longer e ligible based on patient's age to complete this topic [facility]-Hepatitis A Vaccines Aged Out No longer eligible based on patient's age to complete this topic [facility]-IPV Vaccines Aged Out No longer e ligible based on patient's age to complete this topic [facility]-Influenza Vaccine Discontinued [facility]-Rotavirus Vaccines Aged Out No lo nger eligible based on patient's age to complete this topic [facility]-Zoster Vaccines Discontinued Procedures Procedure Name Priority Date/Time Associated Diagnosis Comments MISCELLANEOUS LAB TEST (SO) Routine 01/13/2025 5:56 PM EDT ANTINUCLEAR ANTIBODIES, IFA (EXTERNAL) Routine 01/13/2025 5:56 PM EDT SCLERODERMA (SCL-70) (NIRAJ) ANTIBODY, IGG (SO) Routine 01/13/2025 5:56 PM EDT CBC WITH AUTO DIFFERENTIAL Routine 01/13/2025 5:56 PM EDT RHEUMATOID FACTOR, PLASMA Routine 01/13/2025 5:56 PM EDT FREE T4, PLASMA Routine 01/13/2025 5:56 PM EDT TSH Routine 01/13/2025 5:56 PM EDT C-REACTIVE PROTEIN, PLASMA Routine 01/13/2025 5:56 PM EDT COMPREHENSIVE METABOLIC PANEL, PLASMA Routine 01/13/2025 5:56 PM EDT SEDIMENTATION RATE, AUTOMATED Routine 01/13/2025 5:56 PM EDT CBC W/O DIFFERENTIAL Routine 01/13/2025 5:56 PM EDT ANTISTREPTOLYSIN O SCREEN (SO) Routine 01/13/2025 5:[address] NEURO OUTSIDE IMAGES 12/02/19 8:42 PM EDT PROCALCITONIN, PLASMA Routine 12/01/2024 8:24 PM EDT SEDIMENTATION RATE, AUTOMATED Routine 12/01/2024 8:24 PM EDT LACTIC ACID, PLASMA Routine 12/01/2024 8 :24 PM EDT C-REACTIVE PROTEIN, PLASMA Routine 12/01/2024 8:24 PM EDT MAGNESIUM, PLASMA Routine 12/01/2024 8:2 4 PM EDT COMPREHENSIVE METABOLIC PANEL, PLASMA Routine 12/01/2024 8:24 PM EDT CBC WITH AUTO DIFFERENTIAL Routine 12/01/2024 8:24 PM EDT BLOOD CULTURE (AEROBIC/ANAEROBIC SET) Routine 12/01/2024 8:[address] FACE W IV CONTRAST 12/01/2024 8:06 PM EDT HEPATITIS C ANTIBODY W/REFLEX TO HCV QUANT PCR Routine 09/08/2023 3:42 PM EDT Unintentional weight loss Need for hepatitis C screening test HIV 1/2 ANTIBODY/ANTIGEN SCREEN WITH REFLEX TO HIV I/II DIFFERENTIATION Routine 09/08/2023 3:42 PM EDT Unintentional weight loss Screening for human immunodeficiency virus from Last 3 Months or Most Recently Relevant to Health Maintenance Results * Antinuclear Antibodies, IFA (External) (01/13/2025 5:56 PM EDT) External Antinuclear Antibody (JEANNETTE) Negative [facility] Comment: Negative <1:80 Borderline 1:80 Positive >1:80 ICAP nomenclature: AC-0 For more information about Hep-2 cell patterns use ANApatterns.org, the official website for the International Consensus on Antinuclear Antibody (JEANNETTE) Patterns (ICAP). Performed at: - [address] [id number] Flower Arranger: Mario Guo PhD, Phone: [phone] 01/13/2025 5:56 PM EDT 01/13/2025 5:56 PM EDT us Generic [place] Provider LAB BLOOD ORDERABLES Final Result [facility] * - Miscellaneous Test (01/13/2025 5:56 PM EDT) External Misc Lab Test SEE REPORT [facility] Comment: [facility] [address] [id number] Dir: Mario Guo, PhD Contact by: [phone] 01/13/2025 5:56 PM EDT 01/13/2025 5:56 PM EDT Generic [place] Provider LAB REF LAB BLOOD AN D FLUID ORD Final Result Performing Organization Address [facility]/ZIP Co de Phone Number [facility] * Anti-scleroderma antibody (01/13/2025 5:56 PM EDT) External SCL 70 (Scleroderma Ab) <0.2 0.0 - 0.9 AI [facility] Comment: Performed at: - [facility] [id number] Flower Arranger: Mario Guo PhD, Phone: [phone] 01/13/2025 5:56 PM EDT 01/13/2025 5:56 PM EDT [facility] Provider LAB BLOOD ORDERABLES Final Result Performing Organization Address [facility] Co de Phone Number [facility] * Sedimentation Rate, Automated (01/13/2025 5:56 PM EDT) Only the most recent of2 resultswithin the time period is included. External Erythrocyte Sedimentation Rate 5 0 - 20 [facility] 01/13/2025 5:56 PM EDT 01/13/2025 5:56 PM EDT [facility] Provider LAB BLOOD ORDERABLES Final Result Performing Organization Address [facility] Co de Phone Number [facility] * (ABNORMAL) CBC W/O Differential (01/13/2025 5:56 PM EDT) External WBC 7.8 4.0 - 10.5 K/ul [facility] External Red Blood Cell (RBC) 4.7 4.2 - 6.4 M/mm3 [facility] External Hemoglobin 14.2 12.5 - 16.0 gm/dl [facility] External Hematocrit 42.3 37.0 - 47.0 % [facility] External MCV 90.8 78 - 100 fl [facility] External MCH 30.5 27 - 31 pg [facility] External MCHC 33.6 32 - 36 g/dl [facility] External RDW 11.7 11.5 - 14.0 % [facility] External Platelets 229 150 - 450 K/ul [facility] External MPV 10.4(H) 6 - 9.5 [facility] External Manual Differential NO [facility] 01/13/2025 5:56 PM EDT 01/13/2025 5:56 PM EDT us Generic [place] Provider LAB BLOOD ORDERABLES Final Result [facility] * (ABNORMAL) CBC and Differential (01/13/2025 5:56 PM EDT) Only the most recent of2 resultswithin the time period is included. External WBC 7.6 4.0 - 10.5 K/ul [facility] External Red Blood Cell (RBC) 4.7 4.2 - 6.4 M/mm3 [facility] External Hemoglobin 14.3 12.5 - 16.0 gm/dl [facility] External Hematocrit 43.4 37.0 - 47.0 % [facility] External MCV 93.1 78 - 100 fl [facility] External MCH 30.7 27 - 31 pg [facility] External MCHC 32.9 32 - 36 g/dl [facility] External RDW 11.5 11.5 - 14.0 % [facility] External Platelets 244 150 - 450 K/ul [facility] External MPV 11.6(H) 6 - 9.5 fl [facility] External Neutrophils % 69.6(H) 43 - 65 % [facility] External Lymphocyte % 23.4 20.5 - 45.5 % [facility] External Monocyte % 4.7(L) 5.5 - 11.7 % [facility] External Eosinophil% 1.2 0.9 - 2.9 % [facility] External Basophil % 1.0 0.2 - 1.0 % [facility] External Immature Granulocyte% 0.1 0.0 - 0.8 % [facility] External Nucleated RBC % 0.0 % [facility] External Neutrophil# 5.3(H) 2.2 - 4.8 K/uL [facility] External Lymphocyte# 1.8 1.3 - 2.9 [facility] External Monocyte# 0.4 0.3 - 0.8 [facility] External Eosinophils# 0.1 0 - 0.2 [facility] External Baso# 0.1 0.0 - 1.0 [facility] External Immature Granulocyte Abs 0.01 K/ul [facility] External Nucleated RBC Absolute 0.00 K/uL [facility] External Manual Differential NO [facility] 01/13/2025 5:56 PM EDT 01/13/2025 5:56 PM EDT us Generic [place] Provider LAB BLOOD ORDERABLES Final Result [facility] * Antistreptolysin O screen (01/13/2025 5:56 PM EDT) External Streptolysin O Antibody 68.2 0.0 - 200.0 IU/mL [facility] Comment: Performed at: - [address] [id number] Flower Arranger: Mario Guo PhD, Phone: [phone] 01/13/2025 5:56 PM EDT 01/13/2025 5:56 PM EDT Generic [place] Provider LAB MICROBIOLOGY - G ENERAL ORDERABLES Final Result Performing Organization Address [facility] Number [facility] * Rheumatoid Factor, Plasma (01/13/2025 5:56 PM EDT) External Rheumatoid Factor <10.0 <14.0 IU/mL [facility] Comment: Performed at: - [facility] [id number] Flower Arranger: Mario Guo PhD, Phone: [phone] 01/13/2025 5:56 PM EDT 01/13/2025 5:56 PM EDT [facility] LAB BLOOD ORDERABLES Final Result Performing Organization Address [facility] Phone Number [facility] * C-Reactive Protein, Plasma (01/13/2025 5:56 PM EDT) Only the most recent of2 resultswithin the time period is included. External C-Reactive Protein <0.2 0.05 - 0.300 mg/dL [facility] 01/13/2025 5:56 PM EDT 01/13/2025 5:56 PM EDT Generic [place] Provider LAB BLOOD ORDERABLES Final Result Performing Organization Address [facility] Phone Number [facility] * Thyroid Stimulating Hormone, Plasma (01/13/2025 5:56 PM EDT) External TSH 0.73 0.36 - 3.74 mIU/L [facility] 01/13/2025 5:56 PM EDT 01/13/2025 5:56 PM EDT Generic [place] Provider LAB BLOOD ORDERABLES Final Result [facility] * Free T4, Plasma (01/13/2025 5:56 PM EDT) External Free T4 1.03 0.76 - 1.46 ng/dl [facility] 01/13/2025 5:56 PM EDT 01/13/2025 5:56 PM EDT [facility] Provider LAB BLOOD ORDERABLES Final Result Performing Organization Address [facility]/ZIP Co de Phone Number [facility] * (ABNORMAL) Comprehensive Metabolic Panel, Plasma (01/13/2025 5:56 PM EDT) Only the most recent of2 resultswithin the time period is included. External Sodium 141 136 - 145 mmol/L [facility] External Potassium 3.5(L) 3.6 - 5.0 mmol/L [facility] External Chloride 100 98 - 107 mmol/L [facility] External Carbon Dioxide 30.5 21.0 - 32.0 mmol/L [facility] External Anion Gap (AG) 14.0 [facility] External Glucose 107 70 - 120 mg/dl [facility] External BUN 6(L) 7 - 18 mg/dL [facility] External Creatinine Blood 0.9 0.6 - 1.3 mg/dL [facility] External Estimated GFR 85 60- mlpermin [facility] Comment: GFR LIMITATION: The eGFR equation CKD-EPI 2020 is not applicable for pediatric patients or greater than 90 years of age. The following conditions may alter the GFR result: extremes in body size, malnutrition or obesity, skeletal muscle disease, paraplegia or quadriplegia, vegetarian diet or rapidly changing kiney function. External Osmolality (Calculated) 291 275 - 301 mosm/kg [facility] Comment: OSMOLALITY IS A CALCULATION UTILIZING THE SERUM/PLASMA SODIUM, GLUCOSE AND UREA NITROGEN (BUN) LEVELS. FOR THE MOST ACCURATE RESULT A MEASURED SERUM OSMOLALITY IS SUGGESTED. External Total Protein 8.9(H) 6.4 - 8.2 g/dl [facility] External Albumin 5.0 3.4 - 5.0 g/dl [facility] External Globulin 3.9 [facility] External Albumin/Globuli n Ratio 1.3 0.7 - 2 [facility] External Calcium 9.3 8.5 - 10.5 mg/dl [facility] External Bilirubin Total 0.60 0.10 - 1.00 mg/dL [facility] External AST (SGOT) 13 0 - 37 U/L [facility] External ALT (SGPT) 24 0 - 65 U/L [facility] External Alkaline Phosphatase 98 46 - 116 U/L [facility] 01/13/2025 5:56 PM EDT 01/13/2025 5:56 PM EDT Generic [place] Provider LAB BLOOD ORDERABLES Final Result [facility] * CT NEURO OUTSIDE IMAGES (12/01/2024 8:42 PM EDT) Anatomical Region Laterality Modality Computed Tomogra phy 12/01/2024 8:42 PM EDT us External Provider IMG CT PROCEDURES Final Result * Procalcitonin, Plasma (12/01/2024 8:24 PM EDT) External Procalcitonin <0.05 0.00 - 0.5 ng/mL [facility] Comment: PCT </= 0.5 ng/mL : Low risk for progression to severe systemic infection (severe sepsis/septic shock). CAUTION: PCT levels below 0.5 ng/mL do not exclude an infection, because localized infections (without systemic signs) may be associated with such low levels. If PCT is measured very early after a bacterial challenge (usually <6 hours), these values may sill be low. In this case, PCT should be re-assessed 6-24 hours later. PCT >0.5 to </=2 ng/mL : Moderate risk for progression to severe systemic infection (severe sepsis/septic shock). This patient should be closely monitored both clinically and by re-assessing PCT within 6-24 hours. PCT > 2 ng/mL : High risk of progression to severe systemic infection (severe sepsis/ septic shock). PCT >/= 10 ng/mL : High likelihood of severe spesis or septic shock. 12/01/2024 8:24 PM EDT 12/01/2024 8:31 PM EDT [facility] Provider LAB BLOOD ORDERABLES Final Result Performing Organization Address [facility]/ZIP Co de Phone Number [facility] * Blood Culture (Aerobic/Anaerobet Set) (12/01/2024 8:24 PM EDT) External Comments AAC 2024-12-03 907 NO GROWTH 24 HOURS AAC 2024-12-05 847 NO GROWTH 48 HOURS AAC 2024-12-05 848 NO GROWTH AT 72 HOURS 2 2024-12-07 847 No growth 5 days [facility] Peripheral blood 12/01/2024 8:24 PM EDT 12/01/2024 8:34 PM EDT [facility] Provider LAB MICROBIOLOGY - G ENERAL ORDERABLES Final Result Performing Organization Address [facility] Co de Phone Number [facility] * Magnesium, Plasma (12/01/2024 8:24 PM EDT) External Magnesium 1.9 1.8 - 2.4 MG/DL [facility] 12/01/2024 8:24 PM EDT 12/01/2024 8:31 PM EDT [facility] Provider LAB BLOOD ORDERABLES Final Result Performing Organization Address [facility] Co de Phone Number [facility] * Lactic Acid, Plasma (12/01/2024 8:24 PM EDT) External Lactic Acid 1.2 0.4 - 2.0 mmol/L [facility] 12/01/2024 8:24 PM EDT 12/01/2024 8:31 PM EDT us Generic [place] Provider LAB BLOOD ORDERABLES Final Result [facility] * CT Face w IV Contrast (12/01/2024 8:06 PM EDT) Anatomical Region Laterality Modality Facial bones Computed Tomogra phy 12/01/2024 8:06 PM EDT Narrative 12/01/2024 9:15 PM EDT [place] [id number] [place] [id number] Name: JAYLYN CARNES Exam Date: 12/01/2024 : 1990 Age 34 years Gender: F Physician: TALAT CHAVEZ Facility: [facility] Facility HSV: Outpatient Exam: CT FACIAL BONES W FINAL REPORT TECHNIQUE: null CLINICAL HISTORY: Swelling, and facial /nasal pain since march, 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 No dislocations. Temporomandibular joints are intact. Paranasal sinuses and mastoid air cells clear. A slight amount of soft tissue swelling is seen about the nasolabial fold on the right as well as in the preseptal soft tissues. There is a slight amount of thickening of the left frontal scalp soft tissues. No jose abscess is evident. No postseptal or intraorbital abnormality is demonstrated. The remaining portions of the nose appears intact. No significant abnormality of the face is evident.. Unremarkable orbital contents. Visualized intracranial contents are within normal limits. No foreign bodies. Moderate degenerative changes are seen throughout the cervical spine. IMPRESSION: IMPRESSION: 1. Maxillofacial CT demonstrates nonspecific soft tissue swelling in the right face and preseptal soft tissues as well as the left frontal scalp. An active cellulitis can not be excluded. There is no evidence of jose abscess. 2. No bony destruction or intra orbital abnormality evident on either side.. Authenticated and EASTERN Dictated By: Tien Villegas Transcribed By: Transcribed On: 12/01/2024 9:13 PM Electronically signed by: Tien Villegas 12/01/2024 Thank you for referring JAYLYN CARNES to [facility]. 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 No dislocations. Temporomandibular joints are intact. Paranasal sinuses and mastoid air cells clear. A slight amount of soft tissue swelling is seen about the nasolabial fold on the right as well as in the preseptal soft tissues. There is a slight amount of thickening of the left frontal scalp soft tissues. No jose abscess is evident. No postseptal or intraorbital abnormality is demonstrated. The remaining portions of the nose appears intact. No significant abnormality of the face is evident.. Unremarkable orbital contents. Visualized intracranial contents are within normal limits. No foreign bodies. Moderate degenerative changes are seen throughout the cervical spine. IMPRESSION: IMPRESSION: 1. Maxillofacial CT demonstrates nonspecific soft tissue swelling in the right face and preseptal soft tissues as well as the left frontal scalp. An active cellulitis can not be excluded. There is no evidence of jose abscess. 2. No bony destruction or intra orbital abnormality evident on either side.. Authenticated and EASTERN Dictated By: Tien Villegas Transcribed By: Transcribed On: 12/01/2024 9:13 PM Electronically signed by: Tien Villegas 12/01/2024 Thank you for referring JAYLYN CARNES to [facility]. Legally authenticated by STEFFEN CHAVEZ 2024-12-01 21:13:38 us Generic [place] Provider IMG CT PROCEDURES Fi nal Result * HIV 1 & 2 Antibody/Antigen Screen (09/08/2023 3:42 PM EDT) HIV 1 & 2 Antibody/Antigen Screen Non Reactive Non Reactive 09/08/2023 7:14 PM EDT [facility] Comment:Screening for HIV 1 & 2 antibodies, and P24 antigen is NONREACTIVE. No confirmatory testing is required. Blood Venous blood specimen / Unknown Venipuncture / Unknown 09/08/2023 3:42 PM EDT 09/08/2023 3:42 PM EDT us Beata C Troup [facility] FLOOR LAB BLOOD ORDERABLES Final Resu lt Performing Organization Address City/[facility]/ZIP Co de Phone Number [facility] [address] [place] [address] * Hepatitis C Antibody w/Reflex to HCV Quant PCR (09/08/2023 3:42 PM EDT) Hepatitis C Antibody Negative Negative 09/08/2023 6:48 PM EDT [facility] Blood Venous blood specimen / Unknown Venipuncture / Unknown 09/08/2023 3:42 PM EDT 09/08/2023 3:42 PM EDT us Beata C Troup [facility] FLOOR LAB BLOOD ORDERABLES Final Resu lt Performing Organization Address City/[facility]/ZIP Co de Phone Number [facility] [address] [place] [address] from Last 3 Months or Most Recently Relevant to Health Maintenance Additional Health Concerns Infection Onset Date Last Indicated MRSA 03/18/2024 03/18/2024 Insurance ANTHEM Care Teams Ethnographer Relationship Specialty Start Date End Date Beata Dixon APRN [address] [place] [address] PCP - General Family Medicine 10/10/24
--- OUTSIDE RECORDS SUMMARY | 2025-02-24 12:47 | XMS_ITS | Encounter Summary ---
Author Organization Healthcare Address [address] [place] [address] Care Team Providers Care Arc Welding Machine Operator Name Role Phone Beata Dixon APRN Primary Care Provider [phone] Bessie Meade DO Primary Care Provider [phone] Beata Dixon APRN Primary Care Provider [phone] Encounter Details Date Type Department Care Team (Late st Contact Info) Description 02/23/2024 Outside Procedure External Location [address] [place] [address] Fariba Hernandez, STEPHANIE, DNP [address] [place] [address] Social History Tobacco Use Types [...] Date Recorded Patient Health Questionnaire-2 Score 0 02/15/2024 Hunger Vital Sign Answer Date Recorded Within [...] place to sleep or slept in a detention (including now)? No 02/15/2024 Safety and Environment [...] Description 02/26/2025 3:45 PM EDT Office Visit [facility] Otolaryngology [address], [address] [place] [address] Juan Francisco Duarte MD [address] [place] [address] 03/03/2025 10:30 AM EDT Office Visit [facility] Care [address] [place] [address] Abby Fox E [address] [place] [address] 03/12/2025 12:30 PM EDT Consult [facility] [address] [place] [address] Thierry Walton DO [address] [place] [address] 03/27/2025 9:00 AM EDT Office Visit [facility] Obstetrics and Gynecology [address] [place] [address] Nandini Segura, STEPHANIE [address] [place] [address] 08/08/2025 9:00 AM EST Office Visit [facility] Room [address] [place] [address] Jenny Prieto DDS [address] [place] [address] documented as of this encounter Procedures Procedure Name Priority Date/Time Associated Diagnosis Comments CT ABDOMEN PELVIS W IV CONTRAST 02/23/2024 3:34 PM EDT documented in this encounter Results * CT Abdomen Pelvis w IV Contrast (02/23/2024 3:34 PM EDT) Anatomical Region Laterality Modality Abdomen, Pelvis Computed Tomogra phy 02/23/2024 3:34 PM EDT Narrative 02/24/2024 2:42 PM EDT [id number] [place] [address] Name: JAYLYN CARNES Exam Date: 02/23/2024 : 1990 Age 33 years Gender: F Physician: Fariba Hernandez Facility: [facility] Facility HSV: Outpatient Exam: CT ABD PEL W (IV CONT ONLY) CT ABDOMEN PELVIS WITH IV CONTRAST Clinical History: abd discomfort Findings: Axial CT images were obtained from the lung bases through the abdomen, and subsequently from the abdomen through the pelvis following the administration of 75 mL Isovue-300 intravenous contrast. Coronal/sagittal reformatted images are included for review. Comparison is with recent study of 01/14/2024. This exam was performed according to the departmental dose optimization program which includes automated exposure control, adjustment of the mA and/or kV according to patient size and/or use of iterative reconstruction technique. CT abdomen: The included lung bases are relatively well aerated without discrete consolidative focus or effusion. The liver demonstrates an unremarkable appearance without concerning focus of enhancement or intrahepatic biliary ductal dilatation. The gallbladder appears to be absent. The spleen, pancreas, and adrenal glands are without concerning acute process. There is redemonstration of chronic, severe left hydronephrosis. The right kidney is without suspicious solid mass lesion, obvious collecting system calcification, or hydronephrosis. No lymphadenopathy or concerning fluid collection is evident within the abdomen. CT pelvis: The small bowel loops are acceptable in course and caliber without concerning dilatation or evidence of obstruction. Evaluation of the colon is limited due to the lack of enteric contrast and incomplete distention. No obvious focus of pericolonic inflammatory change evident. Moderate to large volume fecal material is present throughout the colon. The appendix is not well delineated. Urinary bladder is relatively decompressed. The uterus is present. No concerning free fluid or lymphadenopathy evident within the pelvis. The abdominal aorta is without concerning dilatation. Evaluation of the bony structures fails to demonstrate acute abnormality. Redemonstrated Grade 1 anterolisthesis at L5-S1 with bilateral pars defects. The remaining soft tissues are unremarkable. Impression: 1. No definitive CT findings of acute intra-abdominal/pelvic process. 2. Redemonstration of severe, chronic left hydronephrosis. 3. Moderate to large volume fecal material present throughout the colon. 4. Stable grade 1 anterolisthesis of L5-S1 with bilateral pars defects. Electronically signed by:Abiola Hernandez DE02/24/2024 02:38 PM EDT RP Legally authenticated by FELIPE ALAS 2024-02-23 15:56:57 Dictated By: ABIOLA HERNANDEZ Transcribed By: Transcribed On: 02/23/2024 3:56 PM Electronically signed by: ABIOLA HERNANDEZ 02/23/2024 Thank you for referring JAYLYN CARNES to [facility]. Legally authenticated by FELIPE ALAS 2024-02-23 15:56:57 Procedure Note Provider, Generic [place] - 02/24/2024 [place] [address] Name: JAYLYN CARNES Exam Date: 02/23/2024 : 1990 Age 33 years Gender: F Physician: Fariba Hernandez Facility: [facility] Facility HSV: Outpatient Exam: CT ABD PEL W (IV CONT ONLY) CT ABDOMEN PELVIS WITH IV CONTRAST Clinical History: abd discomfort Findings: Axial CT images were obtained from the lung bases through the abdomen, and subsequently from the abdomen through the pelvis followingthe administration of 75 mL Isovue-300 intravenous contrast.Coronal/sagittal reformatted images are included for review. Comparison is with recentstudy of 01/14/2024. This exam was performed according to the departmental dose optimization program which includes automated exposure control, adjustmentof the mA and/or kV according to patient size and/or use of iterative reconstruction technique. CT abdomen: The included lung bases are relatively well aerated without discrete consolidative focus or effusion. The liver demonstrates an unremarkable appearance without concerning focusof enhancement or intrahepatic biliary ductal dilatation. The gallbladderappears to be absent. The spleen, pancreas, and adrenal glands are withoutconcerning acute process. There is redemonstration of chronic, severe left hydronephrosis. Theright kidney is without suspicious solid mass lesion, obvious collectingsystem calcification, or hydronephrosis. No lymphadenopathy or concerning fluid collection is evident within the abdomen. CT pelvis: The small bowel loops are acceptable in course and caliber withoutconcerning dilatation or evidence of obstruction. Evaluation of the colon is limiteddue to the lack of enteric contrast and incomplete distention. No obviousfocus of pericolonic inflammatory change evident. Moderate to large volume fecal material is present throughout the colon. The appendix is not welldelineated. Urinary bladder is relatively decompressed. The uterus is present. No concerning free fluid or lymphadenopathy evident within the pelvis. The abdominal aorta is without concerning dilatation. Evaluation of the bony structures fails to demonstrate acute abnormality. Redemonstrated Grade1 anterolisthesis at L5-S1 with bilateral pars defects. The remaining soft tissues are unremarkable. Impression: 1. No definitive CT findings of acute intra-abdominal/pelvic process. 2. Redemonstration of severe, chronic left hydronephrosis. 3. Moderate to large volume fecal material present throughout the colon. 4. Stable grade 1 anterolisthesis of L5-S1 with bilateral pars defects. Electronically signed by:Abiola Hernandez 02/24/2024 02:38 PMEDT Legally authenticated by FELIPE ALAS 2024-02-23 15:56:57 Dictated By: ABIOLA HERNANDEZ Transcribed By: Transcribed On: 02/23/2024 3:56 PM Electronically signed by: ABIOLA HERNANDEZ 02/23/2024 Thank you for referring JAYLYN CARNES to [facility]. Legally authenticated by FELIPE ALAS 2024-02-23 15:56:57 us Fariba M Mary RACK CLEANER, DNP IMG CT PROCEDURES Fin al Result documented in this encounter Visit Diagnoses Not on filedocumented in this encounter Additional Health Concerns Infection Onset Date Last Indicated Resolved Time MRSA 03/18/2024 03/18/2024 Assessment Noted Time A Body Mass Index follow-up plan has been documented for the patient 02/15/2024 11:05 AM EDT documented as of this encounter Care Teams Arc Welding Machine Operator Relationship Specialty Start Date End Date Beata Dixon APRN [address] [place] [address] PCP - General Family Medicine 10/03/23 06/24/24 Bessie Meade DO [address] [place] [address] PCP - General 06/25/24 10/09/24 Beata Dixon APRN [address] [place] [address] PCP - General Family Medicine 10/10/24 documented as of this encounter
--- OUTSIDE RECORDS SUMMARY | 2025-02-24 12:47 | XMS_ITS | Encounter Summary ---
Author Organization [employer] ([place], [place], [place], [place]) Address [address] [place] [address] Care Team Providers Care Strategic Sourcing Manager Name Role Phone Beata Dixon Primary Care Provider Encounter Details Date Type Department Care Team (Latest Contact Info) Description 02/22/2025 Travel Social History Tobacco Use Types Packs/Day Years [...] Date Fredy rded Speak language other than Niuean at home Not on file 07/01/2023 Want [...] documented as of this encounter Visit Diagnoses Not on filedocumented in this encounter Care Teams Strategic Sourcing Manager Relationship Specialty Start Date End Date Beata Dixon [address] [place] [address] [place] [address] PCP - General 02/22/25 documented as of this encounter
--- OUTSIDE RECORDS SUMMARY | 2025-02-24 12:47 | XMS_ITS | Encounter Summary ---
Author Organization Healthcare Address [address] [place] [address] Care Team Providers Care Kitchen Food Assembler Name Role Phone Beata Dixon APRN Primary Care Provider [phone] Encounter Details Date Type Department Care Team (Late st Contact Info) Description 02/24/2025 Telephone [facility] [address] [place] [address] Abby Fox [address] [place] [address] Social History Tobacco Use Types Packs/Day Years [...] any time in the past 12 m [facility] [place], were you homeless or living in a longterm (including now)? No 11/13/2024 Safety and Environment [...] the past 12 months has th e [employer], gas, oil, or water [employer] threatened to shut off services in your home? No 11/13/2024 PHQ-2A Answer Date Recorded Patient Health Questionnaire-2 Score 0 07/01/2022 Comments No Sex and Gender Information Value Date Recorded Sex Assigned at Not on file Legal Sex Female 6:22 PM EDT Gender Identity Not on file Sexual Orientation Not on file documented as of this encounter Miscellaneous Notes * Telephone Encounter - Clair Strange - 02/24/2025 8:14 AM EDT Triage Note 02/24/2025 8:14 AM Rescheduled patient for 03/[address] OROURKE. * Telephone Encounter - Laine Hidalgo - 02/24/2025 8:02 AM EDT Same Day Appt/Overbook Request Reason for Call: Pt wants to know if today's apt could be moved to 02/26. Pt said rebecca took the wrong day off work to come with her. Best contact number: [phone] (home) Optimal time of day to reach caller: ANYTIME Additional comments/information from caller: None Note: Please do not reply to this message. Follow-up communication and further actions as a result of this message need to be communicated with the patient directly, if the patient is not active onMyChart. If the patient is active on MyChart, they will receive notification of the communication/outcome via [employer]. documented in this encounter Plan of Treatment Upcoming Encounters Date Type Department Care Team (Late st Contact Info) Description 02/26/2025 3:45 PM EDT Office Visit [facility] Otolaryngology [address] [place] [address] Juan Francisco Duarte MD [address] [place] [address] 03/03/2025 10:30 AM EDT Office Visit [facility] Eye Care [address] [place] [address] Abby Fox [address] [place] [address] 03/12/2025 12:30 PM EDT Consult [facility] [address] [place] [address] Thierry Walton DO [address] [facility] [facility] [address] [place] [address] 03/27/2025 9:00 AM EDT Office Visit Medical Office Building Obstetrics and Gynecology [address] [place] [address] Nandini Segura, MIXED LIVESTOCK FARMER [address] [place] [address] 08/08/2025 9:00 AM EST Office Visit [facility] [address] [place] [address] Jenny Prieto, DDS [address] [place] [address] documented as of this encounter [...] documented as of this encounter Care Teams Kitchen Food Assembler Relationship Specialty Start Date End Date Beata Dixon, MIXED LIVESTOCK FARMER [address] [facility] [place] [address] PCP - General Family Medicine 10/10/24 documented as of this encounter
--- OUTSIDE RECORDS SUMMARY | 2025-02-24 12:47 | XMS_ITS | Encounter Summary ---
Author Organization Healthcare Address [address] [place] [address] Care Team Providers Care Receiving Checker Name Role Phone Bessie Meade DO Primary Care Provider [phone] Beata Dixon APRN Primary Care Provider [phone] Encounter Details Date Type Department Care Team (Late st Contact Info) Description 08/08/2024 Orders Only External Location [address] [place] [address] Provider, External Social History Tobacco Use Types Packs/Day Years Used Date Smoking Tobacco: Every Day Cigarettes 1 22.7 Started: 06/12/2002 Passive Smoke Exposure: Current [...] Date Recorded Patient Health Questionnaire-2 Score 0 06/25/2024 Hunger Vital Sign Answer Date Recorded Within [...] place to sleep or slept in a prison (including now)? No 02/15/2024 PHQ-9 Answer Date Recorded Patient Health Questionnaire-9 Score 0 06/25/2024 Safety and Environment Answer Date Fredy rded [...] Description 02/26/2025 3:45 PM EDT Office Visit [facility] [address] [place] [address] Neeses, Juan Francisco Mcwilliams MD [address] [place] [address] 03/03/2025 10:30 AM EDT Office Visit [facility] [address] [place] [address] Abby Fox [address] [place] [address] 03/12/2025 12:30 PM EDT Consult [facility] [address] [place] [address] Thierry Walton DO [address] [place] [address] 03/27/2025 9:00 AM EDT Office Visit Medical Office Building Obstetrics and Gynecology [address] [facility] [place] [address] Nandini Segura, CLIPPER AUTOMATIC [address] [facility] [address] [place] [address] 08/08/2025 9:00 AM EST Office Visit [facility] Room [address] [place] [address] Jenny Prieto DDS [address] [facility] [address] [place] [address] documented as of this encounter Procedures Procedure Name Priority Date/Time Associated Diagnosis Comments CT NEURO OUTSIDE IMAGES 08/08/2024 12:24 PM EST documented in this encounter Results * CT NEURO OUTSIDE IMAGES (08/08/2024 12:24 PM EST) Anatomical Region Laterality Modality Computed Tomogra phy 08/08/2024 12:2 4 PM EST us External Provider IMG CT PROCEDURES Final Result documented in this encounter Visit Diagnoses Not on filedocumented in this encounter Additional Health Concerns Infection Onset Date Last Indicated Resolved Time MRSA 03/18/2024 03/18/2024 Assessment Noted Time PHQ-9 Depression Total Score: 0 06/25/19 10:04 AM EST A fall risk assessment has been complete d for the patient 06/25/2024 10:04 AM EST A Body Mass Index follow-up plan has been documented for the patient 07/01/2024 10:15 AM EST documented as of this encounter Care Teams Receiving Checker Relationship Specialty Start Date End Date Bessie Meade DO [address] [place] [address] PCP - General 06/25/24 10/09/24 Beata Dixon APRN [address] [place] [address] PCP - General Family Medicine 10/10/24 documented as of this encounter
--- OUTSIDE RECORDS SUMMARY | 2025-02-24 12:47 | XMS_ITS | Encounter Summary ---
Author Organization Healthcare Address [address] [place] [address] Care Team Providers Care Chemical Analytical Sampler Name Role Phone Beata Dixon APRN Primary Care Provider +- Dagoberto Rolle Primary Care Provider [phone] Beata Dixon APRN Primary Care Provider +- Pcp, No Primary Care Provider Unavailabl e Beata Dixon APRN Primary Care Provider +- Bessie Meade DO Primary Care Provider [phone] Beata Dixon APRN Primary Care Provider + Encounter Details Date Type Department Care Team (Late st Contact Info) Description 11/16/2020 Outside Procedure External Location [address] [place] [address] Provider, [facility] Social History Tobacco Use Types Packs/Day Years Used Date Smoking Tobacco: Former Alcohol Use Standard Drinks/Week Comments No 0 (1 standard drink = 0.6 oz pur e alcohol) Comments Unknown Sex and Gender Information Value Date Recorded Sex Assigned at Not on file Legal Sex Female 6:22 PM EDT Gender Identity Not on file Sexual Orientation Not on file documented as of this encounter Plan of Treatment Upcoming Encounters Date Type Department Care Team (Late st Contact Info) Description 02/26/2025 3:45 PM EDT Office Visit [facility] [address], [address] [place] [address] Juan Francisco Duarte MD [address] [facility] [address] [place] [address] 03/03/2025 10:30 AM EDT Office Visit [facility] [address] [place] [address] Abby Fox [address] [id number] 03/12/2025 12:30 PM EDT Consult [facility] [address], [address] [place] [address] Thierry Walton DO [address] [facility] [address] [place] [address] 03/27/2025 9:00 AM EDT Office Visit Medical Office Building Obstetrics and Gynecology [address] [facility], [address] [place] [address] Nandini Segura, MAP AND CHART MOUNTER [address] [facility] [address] [place] [address] 08/08/2025 9:00 AM EST Office Visit [facility] Room [address]214 [address] [place] [address] Jenny Prieto, DDS [address] [facility] [address] [place] [address] documented as of this encounter Procedures Procedure Name Priority Date/Time Associated Diagnosis Comments US RENAL COMPLETE 11/16/2020 1:0 2 PM EDT documented in this encounter Results * US Renal Complete (11/16/2020 1:02 PM EDT) Anatomical Region Laterality Modality Kidney Ultrasound 11/16/2020 1:02 PM EDT Narrative 11/17/2020 7:23 [place] [address] Name: JAYLYN CARNES Exam Date: 11/16/2020 : 1990 Age 30 Gender: F Physician: BLAS GILES Facility: [facility] Facility HSV: Outpatient Exam: RENAL,BILATERAL US Renal ultrasound History: Occasional right flank pain and limited function of the left kidney. Findings: There is marked left hydronephrosis with severe left cortical thinning. There is no right hydronephrosis. The right kidney is normal in size and shape. There is a 16 mm right lower pole renal cyst. The posterior gallbladder lumen is filled with multiple shadowing stones. There are no findings of acute cholecystitis. Impression: Marked left hydronephrosis which appears similar as compared to prior CT of 07/31/19. Small right renal cyst. Otherwise normal-appearing right kidney. Dictated By: CATY GARCIA Transcribed By: jenna felix Transcribed On: 11/16/2020 2:12 PM Electronically signed by: CATY GARCIA 11/17/2020 Thank you for referring JAYLYN CARNES to [facility]. Legally authenticated by RADHA BYRNE 2020-11-17 07:13:13 Procedure Note Provider, [facility] [place] - 11/17/2020 [place] [address] Name: JAYLYN CARNES Exam Date: 11/16/2020 : 1990 Age 30 Gender: F Physician: BLAS GILES Facility: [facility] Facility HSV: Outpatient Exam: RENAL,BILATERAL US Renal ultrasound History: Occasional right flank pain and limited function of the leftkidney. Findings: There is marked left hydronephrosis with severe left cortical thinning. There is no right hydronephrosis. The right kidney is normal in sizeand shape. There is a 16 mm right lower pole renal cyst. The posterior gallbladder lumen is filled with multiple shadowing stones. There are no findings of acute cholecystitis. Impression: Marked left hydronephrosis which appears similar as comparedto prior CT of 07/31/19. Small right renal cyst. Otherwise normal-appearing right kidney. Dictated By: CATY GARCIA Transcribed By: jenna felix Transcribed On: 11/16/2020 2:12 PM Electronically signed by: CATY GARCIA 11/17/2020 Thank you for referring JAYLYN CARNES to [facility]. Legally authenticated by RADHA BYRNE 2020-11-17 07:13:13 us [facility] [place] Provider IMG US PROCEDURES Fi nal Result documented in this encounter Visit Diagnoses Not on filedocumented in this encounter Additional Health Concerns Infection Onset Date Last Indicated Resolved Time MRSA 03/18/2024 03/18/2024 documented as of this encounter Care Teams Chemical Analytical Sampler Relationship Specialty Start Date End Date Beata Dixon APRN [address] [place] [address] PCP - General 10/23/20 04/27/21 Dagoberto Rolle PA [address] [place] [address] PCP - General 04/28/21 09/07/23 Beata Dixon APRN [address] [place] [address] PCP - General Family Medicine 09/08/23 09/24/23 PcpDorita [address] [place] [address] PCP - General Family Medicine 09/28/23 10/02/23 Beata Dixon APRN [address] [place] [address] PCP - General Family Medicine 10/03/23 06/24/24 Bessie Meade DO [address] [place] [address] PCP - General 06/25/24 10/09/24 Beata Dixon APRN [address] [place] [address] PCP - General Family Medicine 10/10/24 documented as of this encounter
--- OUTSIDE RECORDS SUMMARY | 2025-02-24 12:47 | XMS_ITS | Encounter Summary ---
Author Organization Healthcare Address [address] [place] [address] Care Team Providers Care Grain Elevator Agent Name Role Phone Beata Dixon APRN Primary Care Provider [phone] Bessie Meade DO Primary Care Provider [phone] Beata Dixon APRN Primary Care Provider [phone] Encounter Details Date Type Department Care Team (Late st Contact Info) Description 02/23/2024 Orders Only External Location [address] [place] [address] Provider, External Social History Tobacco Use Types [...] place to sleep or slept in a alf (including now)? No 02/15/2024 Safety and Environment [...] Description 02/26/2025 3:45 PM EDT Office Visit [place] [facility] [address], [address]rd [place] [address] [place] [address] [place] [address] 03/03/2025 10:30 AM EDT Office Visit [facility] [address] [facility] [place] [address] Abby Fox [address] [place] [address] 03/12/2025 12:30 PM EDT Consult [place] [facility] [address] [place] [address] Thierry Walton DO [address] [place] [address] 03/27/2025 9:00 AM EDT Office Visit Medical Office Building Obstetrics and Gynecology [address] [facility], [address] [place] [address] Nandini Segura, CROP FARM HELPER [address] [facility] [address] [place] [address] 08/08/2025 9:00 AM EST Office Visit [facility] [place] [facility] Room [address] [place] [address] Jenny Prieto, DDS [address] [facility] [address] [place] [address] documented as of this encounter Procedures Procedure Name Priority Date/Time Associated Diagnosis Comments CT MSK OUTSIDE IMAGES 02/23/2024 3:48 PM EDT documented in this encounter Results * CT MSK OUTSIDE IMAGES (02/23/2024 3:48 PM EDT) Anatomical Region Laterality Modality Computed Tomogra phy 02/23/2024 3:48 PM EDT us External Provider IMG CT PROCEDURES Final Result documented in this encounter Visit Diagnoses Not on filedocumented in this encounter Additional Health Concerns Infection Onset Date Last Indicated Resolved Time MRSA 03/18/2024 03/18/2024 Assessment Noted Time A Body Mass Index follow-up plan has been documented for the patient 02/15/2024 11:05 AM EDT documented as of this encounter Care Teams Grain Elevator Agent Relationship Specialty Start Date End Date Beata Dixon APRN [address] [place] [address] PCP - General Family Medicine 10/03/23 06/24/24 Bessie Meade DO [address] [place] [address] PCP - General 06/25/24 10/09/24 Beata Dixon APRN [address] [place] [address] PCP - General Family Medicine 10/10/24 documented as of this encounter
--- OUTSIDE RECORDS SUMMARY | 2025-02-24 12:47 | XMS_ITS | Encounter Summary ---
Author Organization Healthcare Address [address] [place] [address] Care Team Providers Care Dredge Deckhand Name Role Phone Dagoberto Rolle Primary Care Provider Ricardo Dixon APRN Primary Care Provider [phone] Pcp, No Primary Care Provider Unavailabl e Ricardo Dixon APRN Primary Care Provider [phone] Bessie Meade DO Primary Care Provider Ricardo Dixon APRN Primary Care Provider [phone] Encounter Details Date Type Department Care Team (Late st Contact Info) Description 09/02/2021 Outside Procedure External Location [address] [place] [address] Ricardo Dixon AUTOMATIC WHEEL LINE OPERATOR [address] [place] [address] Social History Tobacco Use Types Packs/Day Years Used Date Smoking Tobacco: Every Day Cigarettes Smokeless Tobacco: Never Alcohol Use Standard Drinks/Week Comments No 0 (1 standard drink = 0.6 oz pur e alcohol) PHQ-2 Answer Date Recorded Patient Health Questionnaire-2 Score 0 08/31/2021 Comments Unknown Sex and Gender Information Value Date Recorded Sex Assigned at Not on file Legal Sex Female 6:22 PM EDT Gender Identity Not on file Sexual Orientation Not on file COVID-19 Exposure Response Date Recorded In the last month, have you been in contact with someone who was confirmed or suspected to have Coronavirus / COVID-19? No / Unsure 08/31/2021 9:42 AM EDT documented as of this encounter Plan of Treatment Upcoming Encounters Date Type Department Care Team (Late st Contact Info) Description 02/26/2025 3:45 PM EDT Office Visit [facility] Otolaryngology [address] 3rd [place] [address] [place] MD [address] [facility] [address] [place] [address] 03/03/2025 10:30 AM EDT Office Visit [facility] Care [address] [place] [address] Abby Fox [address] [place] [address] 03/12/2025 12:30 PM EDT Consult [facility] [address] 1[address] [place] [address] Thierry Walton DO [address] [facility] [address] [place] [address] 03/27/2025 9:00 AM EDT Office Visit Medical Office Building Obstetrics and Gynecology [address] [facility], [address] [place] [address] Nandini Segura, AUTOMATIC WHEEL LINE OPERATOR [address] [facility] [address] [place] [address] 08/08/2025 9:00 AM EST Office Visit [facility] Room [address] [place] [address] Jenny Prieto, DDS [address] [facility] [address] [place] [address] documented as of this encounter Procedures Procedure Name Priority Date/Time Associated Diagnosis Comments US INTUSSUSCEPTION 09/02/2021 9: 46 AM EDT documented in this encounter Results * US Intussusception (09/02/2021 9:46 AM EDT) Anatomical Region Laterality Modality Abdomen Ultrasound 09/02/2021 9:46 AM EDT Narrative 09/02/2021 3:48 [place] [address] Name: JAYLYN CARNES Exam Date: 09/02/2021 : 1990 Age 31 Gender: F Physician: RICARDO DIXON Facility: [facility] Facility HSV: Outpatient Exam: SOFT TISSUE LMT/ONE ORGAN US ULTRASOUND SOFT TISSUE LIMITED, attention to laparoscopic port site of abdominal wall HISTORY: Palpable abnormality, cholecystectomy FINDINGS: No discrete cystic or soft tissue mass is seen. There is no fluid collection. No obvious hernia is seen. IMPRESSION: Unremarkable abdominal ultrasound directed toward abdominal wall port site Dictated By: BECKY MCINTOSH Transcribed By: Gogo Mcpherson Transcribed On: 09/02/2021 11:45 AM Electronically signed by: BECKY MCINTOSH 09/02/2021 Thank you for referring JAYLYN CARNES to [facility]. Legally authenticated by ARNALDO FARMER 2021-09-02 15:36:46 Procedure Note Provider, [facility] - 09/02/2021 [place] [address] Name: JAYLYN CARNES Exam Date: 09/02/2021 : 1990 Age 31 Gender: F Physician: RICARDO DIXON Facility: [facility] Facility HSV: Outpatient Exam: SOFT TISSUE LMT/ONE ORGAN US ULTRASOUND SOFT TISSUE LIMITED, attention to laparoscopic port site of abdominal wall HISTORY: Palpable abnormality, cholecystectomy FINDINGS: No discrete cystic or soft tissue mass is seen. There is nofluid collection. No obvious hernia is seen. IMPRESSION: Unremarkable abdominal ultrasound directed toward abdominalwall port site Dictated By: BECKY MCINTOSH Transcribed By: Gogo Mcpherson Transcribed On: 09/02/2021 11:45 AM Electronically signed by: BECKY MCINTOSH 09/02/2021 Thank you for referring JAYLYN CARNES to [facility]. 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 03/18/2024 Assessment Noted Time A fall risk assessment has been complete d for the patient 08/31/2021 9:57 AM EDT documented as of this encounter Care Teams Dredge Deckhand Relationship Specialty Start Date End Date Dagoberto Rolle PA [address] [place] [address] PCP - General 04/28/21 09/07/23 Ricardo Dixon APRN [address] [place] [address] PCP - General Family Medicine 09/08/23 09/24/23 Pcp, Dorita [address] [place] [address] PCP - General Family Medicine 09/28/23 10/02/23 Ricardo Dixon APRN [address] [place] [address] PCP - General Family Medicine 10/03/23 06/24/24 Bessie Meade DO [address] [place] [address] PCP - General 06/25/24 10/09/24 Ricardo Dixon [place] [address] PCP - General Family Medicine 10/10/24 documented as of this encounter
--- OUTSIDE RECORDS SUMMARY | 2025-02-24 12:47 | XMS_ITS | Encounter Summary ---
Author Organization Healthcare Address [address] [place] [address] Care Team Providers Care Pompom Maker Name Role Phone Bessie Meade DO Primary Care Provider [phone] Beata Dixon APRN Primary Care Provider [phone] Encounter Details Date Type Department Care Team (Late st Contact Info) Description 08/02/2024 Orders Only External Location [address] [place] [address] Provider, External Social History Tobacco Use Types [...] place to sleep or slept in a senior living (including now)? No 02/15/2024 PHQ-9 Answer Date [...] Description 02/26/2025 3:45 PM EDT Office Visit [place] [facility] [address] 3rd [place] [address] [place], Juan Francisco Mcwilliams MD [address] [place] [address] 03/03/2025 10:30 AM EDT Office Visit [facility] [address] [facility] [place] [address] Abby Fox [address] [place] [address] 03/12/2025 12:30 PM EDT Consult [facility] [address] [place] [address] Thierry Walton DO [address] [place] [address] 03/27/2025 9:00 AM EDT Office Visit Medical Office Building Obstetrics and Gynecology [address] [facility] [place] [address] Nandini Segura, SECURITY PROGRAM MANAGER [address] [facility] [address] [place] [address] 08/08/2025 9:00 AM EST Office Visit [facility]facial Pain Clinic [facility] [place] [facility] Room [address] [place] [address] Jenny Prieto DDS [address] [facility] [address] [place] [address] documented as of this encounter Procedures Procedure Name Priority Date/Time Associated Diagnosis Comments XR MSK OUTSIDE IMAGES 08/02/2024 12:36 PM EST documented in this encounter Results * XR MSK OUTSIDE IMAGES (08/02/2024 12:36 PM EST) Anatomical Region Laterality Modality Radiographic Martha ging 08/02/2024 12:3 6 PM EST us External Provider IMG XR PROCEDURES Final Result documented in this encounter [...] documented as of this encounter Care Teams Pompom Maker Relationship Specialty Start Date End Date Bessie Meade DO [address] [place] [address] PCP - General 06/25/24 10/09/24 Beata Dixon APRN [address] [place] [address] PCP - General Family Medicine 10/10/24 documented as of this encounter
--- OUTSIDE RECORDS SUMMARY | 2025-02-24 12:47 | XMS_ITS | Referral Summary ---
Author Organization [employer] ([place], [place], [place], [place]) Address [address] [place] [address] Care Team Providers Care Special Library Librarian Name Role Phone Beata Dixon Primary Care Provider [phone] Encounters Date Type Department Care Team Description 02/22/2025 Travel 02/22/2025 3:30 PM EDT - 02/22/2025 5:14 PM EDT Emergency [facility] Emergency Department [address] [place] [address] Facial swelling (Primary Dx); Facial pain; Facial rash; Sinus pain; Nasal congestion Discharge Disposition: Home or Self Care from Last 3 Months Allergies No known active allergies Medications buprenorphine-na loxone (SUBOXONE) 8-[address] under the tongue daily. 4 Active cyanocobalamin (VITAMIN B-12) 1,000 mcg/mL injection Inject 1 mL (1,000 mcg total) intramuscularly . 3 Active docusate sodium (COLACE) 100 MG capsule Take 1 capsule (100 mg total) by mouth 2 (two) times daily as needed. 4 Active linaCLOtide (Linzess) 290 mcg CapIndications:C hronic constipation Take 1 capsule (290 mcg total) by mouth daily. 30 capsule 1 4 Active aluminum sulfate-calcium acetate ([place]) 952-1,347 mg topical powder packet Apply 1 packet topically 4 (four) times daily as needed Use on WET dishidrotic eczema lesions QID PRN; not for use on dry lesions.. 30 packet 5 Active ibuprofen (MOTRIN) 600 MG tablet Take 1 tablet (600 mg total) by mouth 3 (three) times daily as needed for pain for up to 10 days Take TID for 3 days, THEN TID PRN pain.. 30 tablet 5 03/04/20 25 Active Active Problems Problem Noted Date Diagnosed Date Screening for cervical cancer 09/21/2023 Overview (09/27/2023): Last pap smear 10/19/2021 was negative; HPV high risk Pool negative; Dr Rider Colitis 10/16/2020 09/27/2023 HTN (hypertension) 09/29/2020 09/27/2023 Missed period 09/29/2020 09/27/2023 Abnormal EKG 08/21/2020 09/27/2023 Hydronephrosis of left kidney 07/31/2019 Low back pain 07/31/2019 09/27/2023 Hair thinning 07/12/2019 09/27/2023 Dry scalp 07/12/2019 09/27/2023 Social History Tobacco Use Types Packs/Day Years Used Date Smoking Tobacco: Every Day Cigarettes Smokeless Tobacco: Never Tobacco Cessation:Ready to Q uit: Not Asked; Counseling Given: Not Answered Alcohol Use Standard Drinks/Week Comments Not Currently 0 (1 standard drink = 0.6 oz pur e alcohol) Family and Community Support Answer Oliver e Recorded Help with Day to Day Activities Not on file 07/01/2023 Feeling Lonely or Isolated Not on file 07/01 Educational Attainment Answer Date Fredy rded Speak language other than German at home Not on file 07/01/2023 Want [...] Mass Index 19.57 02/22/2025 3:34 PM EDT Plan of Treatment Not on file Insurance BLUE CROSS/BLUE SHIELD Care Teams Special Library Librarian Relationship Specialty Start Date End Date Beata Dixon [address] [place] [address] PCP - General 02/22/25
--- OUTSIDE RECORDS SUMMARY | 2025-02-24 12:47 | XMS_ITS | Encounter Summary ---
Author Organization Healthcare Address [address] [place] [address] Care Team Providers Care Pelt Shearer Name Role Phone Bessie Meade DO Primary Care Provider [phone] Beata Dixon APRN Primary Care Provider [phone] Encounter Details Date Type Department Care Team (Late st Contact Info) Description 08/02/2024 Outside Procedure External Location [address] [place] [address] Provider, Sandip [place] Social History Tobacco Use Types Packs/Day Years [...] place to sleep or slept in a correction (including now)? No 02/15/2024 PHQ-9 Answer Date [...] the past 12 months has th e [employer], gas, oil, or water [employer] threatened to shut off services in your [...] Clinic Otolaryngology [address], [address]rd [place] [address] WagenerJuan Francisco MD [address] [place] [address] 03/03/2025 10:30 AM EDT Office Visit [facility] [address] [place] [address] Abby Fox [address] [place] [address] 03/12/2025 12:30 PM EDT Consult [facility] [address], 1st [place] [address] Thierry Walton DO [address] [place] [address] 03/27/2025 9:00 AM EDT Office Visit Medical Office Building Obstetrics and Gynecology [address] [facility], [address] [place] [address] Nandini Segura, PRIMARY MILL ROLLER [address] [facility] [address] [place] [address] 08/08/2025 9:00 AM EST Office Visit [facility] Room E214 [address] [place] [address] Jenny Prieto, DDS [address] [place] [address] documented as of this encounter Procedures Procedure Name Priority Date/Time Associated Diagnosis Comments XR FACIAL BONES 3+ VIEWS 08/02/2024 12:06 PM EST documented in this encounter Results * XR Facial Bones 3+ Views (08/02/2024 12:06 PM EST) Anatomical Region Laterality Modality Facial bones Digital Radiogra phy 08/02/2024 12:0 6 PM EST Narrative 08/02/2024 1:03 [place] [address] Name: JAYLYN CARNES Exam Date: 08/02/2024 : 1990 Age 34 years Gender: F Physician: RUSSELL WEST Facility: [facility] Facility HSV: Outpatient Exam: FACIAL BONES 3+VIEWS FACIAL BONE SERIES-2 views of the facial bones, patient refused water's view CLINICAL HISTORY: Facial pain without trauma FINDINGS: There is no evidence of facial fracture. The sinuses are suboptimally evaluated without Hitchcock' view but grossly clear, with no evidence of air-fluid level. Limited views of the mastoid air cells are also clear. Limited views of the cervical spine are also unremarkable. IMPRESSION: * No evidence of facial fracture. * Limited evaluation shows no evidence of sinusitis. Electronically signed by: Kathy Mendes DO 08/02/2024 12:59 PM [facility] Dictated By: KATHY MENDES Transcribed By: Transcribed On: 08/02/2024 12:51 PM Electronically signed by: KATHY MENDES 08/02/2024 Thank you for referring JAYLYN CARNES to [facility]. Legally authenticated by VAUGHN CHAVEZ 2024-08-02 12:51:00 Procedure Note Provider, Generic [place] - 08/02/2024 [place] [address] Name: JAYLYN CARNES Exam Date: 08/02/2024 : 1990 Age 34 years Gender: F Physician: RUSSELL WEST Facility: [facility] Facility HSV: Outpatient Exam: FACIAL BONES 3+VIEWS FACIAL BONE SERIES-2 views of the facial bones, patient refused water'sview CLINICAL HISTORY: Facial pain without trauma FINDINGS: There is no evidence of facial fracture. The sinuses are suboptimally evaluated without Hitchcock' view but grosslyclear, with no evidence of air-fluid level. Limited views of the mastoid air cells are also clear. Limited views of the cervical spine are also unremarkable. IMPRESSION: * No evidence of facial fracture. * Limited evaluation shows no evidence of sinusitis. Electronically signed by: Kathy Mendes DO 08/02/2024 12:59 PM EST RP Dictated By: KATHY MENDES Transcribed By: Transcribed On: 08/02/2024 12:51 PM Electronically signed by: KATHY MENDES 08/02/2024 Thank you for referring JAYLYN CARNES to [facility]. Legally authenticated by VAUGHN CHAVEZ 2024-08-02 12:51:00 Generic [place] Provider IMG XR PROCEDURES Fi nal Result documented in this [...] documented as of this encounter Care Teams Pelt Shearer Relationship Specialty Start Date End Date Bessie Meade DO [address] [place] [address] PCP - General 06/25/24 10/09/24 Beata Dixon APRN [address] [place] [phone] PCP - General Family Medicine 10/10/24 documented as of this encounter
--- OUTSIDE RECORDS SUMMARY | 2025-02-24 12:47 | XMS_ITS | Encounter Summary ---
Author Organization Healthcare Address [address] [place] [address] Care Team Providers Care Java Lead Name Role Phone Zack Beata Macias APRN Primary Care Provider Encounter Details Date Type Department Care Team (Latest Contact Info) Description 02/04/2025 Travel Social History Tobacco Use Types Packs/Day [...] any time in the [facility] were you homeless or living [...] [address], 3rd [place] [address] [place], Juan Francisco Mcwilliams MD [address] [place] [address] 03/03/2025 10:30 AM EDT Office Visit [facility] [address] [place] [address] Fox Abby Martinez [address] [place] [address] 03/12/2025 12:30 PM EDT Consult [place] [facility] [address], 1st [place] [address] Thierry Walton, DO [address] [place] [address] 03/27/2025 9:00 AM EDT Office Visit Medical Office Building Obstetrics and Gynecology [address] [facility], [address] [place] [address] Nandini Segura APRN [address] [facility] [address] [place] [address] 08/08/2025 9:00 AM EST Office Visit [place] [facility] Room E214 [address] [place] [address] Jenny Prieto, DDS [address] [facility] [address] [place] [address] documented as of this encounter [...] documented as of this encounter Care Teams Java Lead Relationship Specialty Start Date End Date Beata Dixon APRN [address] [place] [phone] PCP - General Family Medicine 10/10/24 documented as of this encounter
--- OUTSIDE RECORDS SUMMARY | 2025-02-24 12:47 | XMS_ITS | Clinical Summary ---
Author Organization [facility] ([place], [place], [place], [place]) Address [address] [place] [address] Care Team Providers Care Fourth Mate Name Role Phone Beata Dixon Primary Care Provider [phone] Allergies No known active allergies Medications buprenorphine-na [...] thinning 07/12/2019 09/27/2023 Dry scalp 07/12/2019 09/27/2023 Encounters Date Type Department Care Team Description 02/22/2025 3:30 PM EDT - 02/22/2025 5:14 PM EDT Emergency [facility] Emergency Department [address] [place] [address] Facial swelling (Primary Dx); Facial pain; Facial rash; Sinus pain; Nasal congestion Discharge Disposition: Home or Self Care 02/22/2025 Travel from Last 3 Months Family History Medical History Relation Name Comments Heart disease Father Cancer Mother Relation Name Status Comments Father Maternal Grandfather Maternal Grandmother Mother Alive Paternal Grandfather Paternal Grandmother Social History Tobacco Use Types Packs/Day Years [...] Date Fredy rded Speak language other than Cambodian at home Not on file 07/01/2023 Want [...] 02/22/2025 3:34 PM EDT Plan of Treatment Health Maintenance Due Date Last Done Comments Depression Screening (12+) 2001 Tobacco Cessation Counseling and Screening (12+) 06/06 HIV Screening 2004 Hepatitis C Screening 2007 DTAP/TDAP/TD VACCINES (1 - Tdap) 2008 Pneumococcal Vaccine: 0-49 Years (1 of 2 - PCV) 2007 Pap Smear 2010 COVID-19 VACCINE (1 - 2023- season) 2025 Influenza Vaccine (#1) 2025 Lipid Panel 09/07/2026 09/08/2023 Insurance CROSS/BLUE SHIELD Care Teams Fourth Mate Relationship Specialty Start Date End Date Beata Dixon [address] [place] [phone] PCP - General 02/22/25
--- OUTSIDE RECORDS SUMMARY | 2025-02-24 12:47 | XMS_ITS | Encounter Summary ---
Author Organization Healthcare Address [address] [place] [address] Care Team Providers Care Patient Scheduler Name Role Phone Beata Dixon APRN Primary Care Provider [phone] Bessie Meade DO Primary Care Provider [phone] Beata Dixon APRN Primary Care Provider [phone] Encounter Details Date Type Department Care Team (Late st Contact Info) Description 02/15/2024 Outside Procedure External Location [address] [place] [address] Fariba Hernandez, STEPHANIE, DNP [address] [place] [address] Social History Tobacco Use Types [...] on file documented as of this encounter Functional Status * Over the past 2 weeks, how often have you been bothered by any of the following problems? Question Answer Date of Assessment Author Little interest or pleasure in doing things Not at all 02/15/2024 10:38 AM EDT Orquidea Curiel Feeling down, depressed, or hopeless Not at all 02/15/2024 10:38 AM EDT Orquidea Curiel Patient Health Questionnaire -2 Score 0 02/15/2024 10:38 AM EDT Orquidea Curiel documented as of this encounter Plan of Treatment Upcoming Encounters Date Type Department Care Team (Late st Contact Info) Description 02/26/2025 3:45 PM EDT Office Visit [facility] Otolaryngology [address], [address]rd [place] [address] Juan Francisco Duarte MD [address] [facility] [address] [place] [address] 03/03/2025 10:30 AM EDT Office Visit [facility] [address] [place] [address] Abby Fox [address] [place] [address] 03/12/2025 12:30 PM EDT Consult [facility] [address], 1st [place] [address] Thierry Walton DO [address] [facility] [address] [place] [address] 03/27/2025 9:00 AM EDT Office Visit Medical Office Building Obstetrics and Gynecology [address] [facility], [address] [place] [address] Nandini Segura APRN [address] [facility] [address] [place] [address] 08/08/2025 9:00 AM EST Office Visit [facility] Room E214 [address] [place] [address] Jenny Prieto, DDS [address] [place] [address] documented as of this encounter Procedures Procedure Name Priority Date/Time Associated Diagnosis Comments XR ABDOMEN 2 VIEWS 02/15/2024 11 :19 AM EDT documented in this encounter Results * XR Abdomen 2 Views (02/15/2024 11:19 AM EDT) Anatomical Region Laterality Modality Body Digital Radiogra phy 02/15/2024 11:1 9 AM EDT Narrative 02/15/2024 3:48 [place] [address] Name: JAYLYN CARNES Exam Date: 02/15/2024 : 1990 Age 33 years Gender: F Physician: Fariba Hernandez Facility: [facility] Facility HSV: Outpatient Exam: ABD FLAT UPRIGHT STUDY:XR ABDOMEN 2 VIEWS SUPINE ERECT 02/15/2024 11:05 AM CDT REASON FOR EXAM: Female, 33 years old. chronic idiopathic constipation TECHNIQUE: XR ABDOMEN 2 VIEWS SUPINE ERECT COMPARISON: None FINDINGS: Normal visualized lung bases. There is a moderate amount of colonic fecal material.There is no demonstrated free abdominal air. The visualized liver, spleen and kidneys are grossly normal in size and morphology. Normal soft tissue structures.Normal visualized osseous structures. IMPRESSION: Constipation. Electronically signed by:Ian Escobedo MD02/15/2024 03:45 PM EDT RP Dictated By: Ian Escobedo Transcribed By: Transcribed On: 02/15/2024 12:05 PM Electronically signed by: Ian Escobedo 02/15/2024 Thank you for referring JAYLYN CARNES to [facility]. Legally authenticated by LOBO JUNG 2024-02-15 12:05:41 Procedure Note Provider, Generic [place] - 02/15/2024 [place] [address] Name: JAYLYN CARNES Exam Date: 02/15/2024 : 1990 Age 33 years Gender: F Physician: Fariba Hernandez Facility: [facility] Facility HSV: Outpatient Exam: ABD FLAT UPRIGHT STUDY:XR ABDOMEN 2 VIEWS SUPINE ERECT 02/15/2024 11:05 AM CDT REASON FOR EXAM: Female, 33 years old. chronic idiopathic constipation TECHNIQUE: XR ABDOMEN 2 VIEWS SUPINE ERECT COMPARISON: None FINDINGS: Normal visualized lung bases. There is a moderate amount of colonic fecal material.There is no demonstrated free abdominal air. The visualized liver, spleen and kidneys are grossly normal in size and morphology. Normal soft tissue structures.Normal visualized osseous structures. IMPRESSION: Constipation. Electronically signed by:Ian Escobedo CA02/15/2024 03:45 PM EDT RP Dictated By: Ian Escobedo Transcribed By: Transcribed On: 02/15/2024 12:05 PM Electronically signed by: Ian Escobedo 02/15/2024 Thank you for referring JAYLYN CARNES to [facility]. Legally authenticated by LOBO JUNG 2024-02-15 12:05:41 Fariba Hernandez BASEBALL PITCHER, DNP IMG XR PROCEDURES Fin al Result documented in this encounter Visit Diagnoses Not on filedocumented in this encounter Additional Health Concerns Infection Onset Date Last Indicated Resolved Time MRSA 03/18/2024 03/18/2024 Assessment Noted Time A Body Mass Index follow-up plan has been documented for the patient 02/15/2024 11:05 AM EDT documented as of this encounter Care Teams Patient Scheduler Relationship Specialty Start Date End Date Beata Dixon APRN [address] [place] [address] PCP - General Family Medicine 10/03/23 06/24/24 Bessie Meade DO [address] [place] [place] [address] PCP - General 06/25/24 10/09/24 Beata Dixon APRN [address] [place] [address] PCP - General Family Medicine 10/10/24 documented as of this encounter
--- OUTSIDE RECORDS SUMMARY | 2025-02-24 12:47 | XMS_ITS | Encounter Summary ---
Author Organization Healthcare Address [address] [place] [address] Care Team Providers Care Cataloging Assistant Name Role Phone Bessie Meade DO Primary Care Provider [phone] Beata Dixon APRN Primary Care Provider Encounter Details Date Type Department Care Team (Late st Contact Info) Description 08/08/2024 Outside Procedure External Location [address] [place] [address] Geovanna Stuart APRN [address] [facility] [address] [place], [place] [id number] Social History Tobacco Use Types Packs/Day Years [...] place to sleep or slept in a penitentiary (including now)? No 02/15/2024 PHQ-9 Answer Date [...] Description 02/26/2025 3:45 PM EDT Office Visit [facility] Otolaryngology [address], [address]rd [place] [address] Juan Francisco Duarte MD [address] [facility] [address] [place] [address] 03/03/2025 10:30 AM EDT Office Visit [facility] [address] [facility] [place] [address] Abby Fox [address] [place] [address] 03/12/2025 12:30 PM EDT Consult [facility] [address], [address] [place] [address] Thierry Walton DO [address] [facility] [address] [place] [address] 03/27/2025 9:00 AM EDT Office Visit Medical Office Building Obstetrics and Gynecology [address] [facility], [address] [place] [address] Nandini Segura, STEPHANIE [address] [facility] [address] [place] [address] 08/08/2025 9:00 AM EST Office Visit [facility] Room E214 [address] [place] [address] Jenny Prieto DDS [address] [facility] [address] [place] [address] documented as of this encounter Procedures Procedure Name Priority Date/Time Associated Diagnosis Comments CT FACE WO IV CONTRAST 08/08/2024 12:07 PM EST documented in this encounter Results * CT Face wo IV Contrast (08/08/2024 12:07 PM EST) Anatomical Region Laterality Modality Facial bones Computed Tomogra phy 08/08/2024 12:0 7 PM EST Narrative 08/09/2024 8:12 [place] [address] Name: JAYLYN CARNES Exam Date: 08/08/2024 : 1990 Age 34 years Gender: F Physician: Geovanna Stuart Facility: [facility] Facility HSV: Outpatient Exam: CT SINUS W/O PROCEDURE DESCRIPTION: CT SINUSES WITHOUT IV CONTRAST CLINICAL INDICATION: Headache unspecified, facial pressure, sensitivity. COMPARISON: CT Sinuses 04/10/2024. The CT exam was performed using one or more of the following dose reduction techniques: Automated exposure control, adjustment of the mA and/or kV according to the patient's size, or use of iterative reconstruction technique. FINDINGS: The globes and extraocular muscles are unremarkable. There is no evidence of acute fracture of the face. There is no orbital blowout fracture. There is progression of the right-sided ethmoid and right maxillary sinus mucosal thickening. The ostiomeatal units are unremarkable. IMPRESSION: Right-sided paranasal sinus mucosal thickening. Electronically signed by: Gus Coronel MD 08/09/2024 08:09 AM EST Dictated By: GUS CORONEL Transcribed By: Transcribed On: 08/08/2024 12:32 PM Electronically signed by: GUS CORONEL 08/08/2024 Thank you for referring JAYLYN CARNES to [facility]. Legally authenticated by BERNA Pedroza 2024-08-08 12:32:53 Procedure Note Provider, Sandip [place] - 08/09/[address] [address] Name: JAYLYN CARNES Exam Date: 08/08/2024 : 1990 Age 34 years Gender: F Physician: Geovanna Stuart Facility: [facility] Facility HSV: Outpatient Exam: CT SINUS W/O PROCEDURE DESCRIPTION: CT SINUSES WITHOUT IV CONTRAST CLINICAL INDICATION: Headache unspecified, facial pressure, sensitivity. COMPARISON: CT Sinuses 04/10/2024. The CT exam was performed using one or more of the following dosereduction techniques: Automated exposure control, adjustment of the mA and/or kV according to the patient's size, or use of iterative reconstructiontechnique. FINDINGS: The globes and extraocular muscles are unremarkable. There is no evidence of acute fracture of the face. There is no orbital blowout fracture. There is progression of the right-sided ethmoid andright maxillary sinus mucosal thickening. The ostiomeatal units areunremarkable. IMPRESSION: Right-sided paranasal sinus mucosal thickening. Electronically signed by: Gus Coronel MD 08/09/2024 08:09 AM EST RP Dictated By: GUS CORONEL Transcribed By: Transcribed On: 08/08/2024 12:32 PM Electronically signed by: GUS CORONEL 08/08/2024 Thank you for referring JAYLYN CARNES to [facility]. Legally authenticated by BERNA Pedroza 2024-08-08 12:32:53 Geovanna Stuart CHIEF ENGINEER [employer] IMG CT PROCEDURES Danette l Result documented in this encounter Visit Diagnoses Not on filedocumented in this encounter Additional Health Concerns Infection Onset Date Last Indicated Resolved Time MRSA 03/18/2024 03/18/2024 Assessment Noted Time PHQ-9 Depression Total Score: 0 06/25/19 25 10:04 AM EST A fall risk assessment has been complete d for the patient 06/25/2024 10:04 AM EST A Body Mass Index follow-up plan has been documented for the patient 07/01/2024 10:15 AM EST documented as of this encounter Care Teams Cataloging Assistant Relationship Specialty Start Date End Date Bessie Meade DO [address] [place] [address] PCP - General 06/25/24 10/09/24 Beata Dixon APRN [address] [place] [phone] PCP - General Family Medicine 10/10/24 documented as of this encounter
--- OUTSIDE RECORDS SUMMARY | 2025-02-24 12:47 | XMS_ITS | Clinical Summary ---
[facility] Organization [facility] Address [address] [place] [address] Care Team Providers Care Architectural Model Maker Name Role Phone Unavailable Primary Care Provider Unavailabl e Allergies No known active allergies Medications buprenorphine-na loxone (SUBOXONE) 8-2 MG film film TAKE 2 FILMS SUBLINGUALLY ONCE DAILY 1 Active polyethylene glycol (MIRALAX) 17 g packetIndication s:Constipation, unspecified constipation type Take 17 g by mouth Daily. 12 each 1 4 Active mupirocin (BACTROBAN) 2 % ointment Apply 1 Application topically to the appropriate area as directed. Active linaclotide (Linzess) 145 MCG capsule capsuleIndicatio ns:Chronic constipation Take 1 capsule by mouth Every Morning Before Breakfast. 30 capsule 2 5 Active Active Problems Problem Noted Date Diagnosed Date Slow transit constipation 11/16/2023 Overview (11/30/2023): 11/16/2023. BM once per week. Fecal stasis noted on CT scan. May be related to Suboxone use. Can try MiraLAX, Colace and fiber supplements. 11/30/2023; States constipation not improving on Miralax; now with BM q 2 wks. Has rx for new medication from GI. Likely opioid induced constipation. Opioid dependence 11/16/2023 Abdominal pressure 10/05/2023 Overview (11/30/2023): Since 07/2023 after straining. Diffuse bilateral lower abdomen. 11/30/2023 lower pelvic pressure likely due to chronic constipation. Opioid-induced constipation with BM every [address] scan and evaluation by general surgery. Hernia of anterior abdominal wall 10/05/2023 Overview (11/16/2023): 10/30/2023; Negative evaluation by [facility]; no evidence of Hernia on CT or exam. Screening for cervical cancer 09/21/2023 Overview (09/21/2023): Last pap smear 10/19/2021 was negative; HPV high risk Pool negative; Dr Haji Colitis 10/16/2020 Encounters Date Type Department Care Team Description 11/30/2024 4:16 PM EDT - 11/30/2024 5:30 PM EDT Emergency [facility] [address] [place] [id number] Diana Tavares, DO Discharge Disposition: Left Without Being Seen 11/30/2024 Travel from Last 3 Months Family History Medical History Relation Name Comments Heart attack Father Cancer Mother in her lymph no de under armpit Breast cancer Neg Hx Colon cancer Neg Hx Ovarian cancer Neg Hx Uterine cancer Neg Hx Relation Name Status Comments Father (Age 45) Mother Social History Tobacco Use Types Packs/Day Years Used Date Smoking Tobacco: Every Day Cigarettes 1.5 19.7 Started: 2005 Smokeless Tobacco: Never Tobacco Cessation:Ready to Q uit: Not Asked; Counseling Given: Not Answered Alcohol Use Standard Drinks/Week Comments Never 0 (1 standard drink = 0.6 oz pur e alcohol) PHQ-2 Answer Date Recorded Retired PHQ-9: Brief Depression Severity Measure Score 0 08/25/2022 Abuse Screen Answer Date Recorded Feels Unsafe at Home or Work/School no 11/30/2024 Feels Threatened by Someone no 11/11 Does Anyone Try to Keep You From Having Contact with Others or Doing Things Outside Your Home? no 11/30/2024 Physical Signs of Abuse Present no 11/30/2024 PHQ-2 Answer Date Recorded Patient Health Questionnaire-2 Score 0 06/21/2024 Comments No Sex and Gender Information Value Date Recorded Sex Assigned at Female 08/26/2024 10:56 AM EDT Legal Sex Female 2:14 PM EDT Gender Identity Not on file Sexual Orientation Not on file Last Filed Vital Signs Vital Sign Reading Time Taken Comments Blood Pressure 145/95 11/30/2024 4:06 PM EDT Pulse 82 11/30/2024 4:06 PM EDT Temperature 36.9 C (98.5 F) 11/30/2024 4:06 PM EDT Respiratory Rate 16 11/30/2024 4:06 PM EDT Oxygen Saturation 100% 11/30/2024 4:06 PM EDT Inhaled Oxygen Concentration - - Weight 54.3 kg (119 lb 12.8 oz) 11/30/2024 4:03 PM EDT Height 162.6 cm (5' 4 ) 11/30/2024 4:03 PM EDT Body Mass Index 20.56 11/30/2024 4:03 PM EDT Plan of Treatment Health Maintenance Due Date Last Done Comments Pneumococcal Vaccine 0-49 (1 of 2 - PCV) 2008 TDAP/TD VACCINES (1 - Tdap) 2008 ANNUAL PHYSICAL 10/16/2020 Annual Gynecologic Pelvic an d Breast Exam 10/05/2024 10/05/2023, 10/19/2021 PAP SMEAR 10/19/2024 10/19/2021 COVID-19 Vaccine ( - 2023-2 5 season) 2025 INFLUENZA VACCINE 03/12/2025 HEPATITIS C SCREENING Completed 09/08/2023 , 09/08/2023, 07/20/2021, Additional history exists Procedures Procedure Name Priority Date/Time Associated Diagnosis Comments LIQUID-BASED PAP SMEAR, [facility]) Routine 10/19/2021 9:23 AM EDT Women's annual routine gynecological examination HEPATITIS PANEL, ACUTE Routine 07/20/2021 9:30 AM EST from Last 3 Months or Most Recently Relevant to Health Maintenance Results * LIQUID-BASED PAP SMEAR, [facility] ([facility]) (10/19/2021 9:23 AM EDT) Reference Lab Report [facility] [address] [place] [address] or [phone] Mark Naylor M.D., Lime Mixer Tender PATIENT NAME LABORATORY NO. ARELY ORTIZ. [id number] AGE SEX SSN CLIENT REF # [facility] 31 1990 F [id number] [facility] SHERI GARCIA REQUESTING Jose [place] [address] LUIS HAJI DATE COLLECTED DATE RECEIVED DATE REPORTED 10/19/2021 10/19/2021 10/21/2021 ThinPrep Pap with Cytyc Imaging DIAGNOSIS: Negative for intraepithelial lesion or malignancy Multiple factors can influence accuracy of Pap tests; therefore, screening at regular intervals is necessary for early cancer detection. COMMENT: Benign cellular changes associated with inflammation are present. SPECIMEN ADEQUACY: SATISFACTORY FOR EVALUATION Transformation zone is present. SOURCE OF SPECIMEN: CERVICAL/ENDOCERVI MITCH SLIDES: 1 CLINICAL HISTORY: A Routine HPV HR-HPV POOL: Negative The Aptima HPV assay is an in vitro nucleic acid amplification test for the qualitative detection of E6/E7 viral messenger RNA from 14 high risk types of HPV in cervical specimens. The high risk HPV types detected include: 16, 18, 31, 33, 35, 39, 45, 51, 52, 56, 58, 59, 66, 68 Chlamydia / Gonorrhea CHLAMYDIA TRACHOMATIS: Negative NEISSERIA GONORRHOEAE: Negative The Aptima Combo 2 assay is a target amplification nucleic acid probe test that utilizes target capture for the in vitro qualitative detection and differentiation of ribosomal RNA from Chlamydia trachomatis and Neisseria gonorrhoeae to aid in the diagnosis of chlamdial and gonococcal disease using the Paris system. DETAIL DRAFTER: ES SY (ASCP) CPT CODES: 15140, 61545, 16345, 66418 10/21/2021 12:53 PM EDT [facility] ThinPrep Vial Cervix uteri structure / Unknown Collection / Unknown 10/19/2021 9:23 AM EDT 10/19/2021 9:23 AM EDT Luis Haji MD PATHOLOGY/CYTOLOGY ORDERABLES F inal Result Performing Organization Address City/[facility] Co de Phone Number [facility]
[address] [place] [address], * Hepatitis Panel, Acute (07/20/2021 9:30 AM EST) Hep A IgM Negative Negative [facility] Hepatitis B Surface Ag Negative Negative [facility] Hep B Core IgM Negative Negative [facility] Hep C Virus Ab 0.1 0.0 - 0.9 s/co ratio [facility] Comment: Negative: < 0.8 Indeterminate: 0.8 - 0.9 Positive: > 0.9 The CDC recommends that a positive HCV antibody result be followed up with a HCV Nucleic Acid Amplification test ([id number]). Effective August 23, 2021 Hepatitis Panel (4) will be made non-orderable. [facility] offers order code [id number] Acute Hepatitis. 07/20/2021 9:30 AM EST 07/20/2021 Narrative [facility] [employer] (AMBULATORY) - 07/21/2021 2:10 PM EST Performed at: [address] [id number] Pageant Director: Mario Guo PhD, Phone: [phone] Patient Fasting: Y Dagoberto [facility] BLOOD ORDERABLES Final Res ult Performing Organization Address City/[facility] Co de Phone Number [facility] (AMBULATORY) [address] [place] [address], [place] [phone] [facility] [address] [place] [address], [place] [phone] from Last 3 Months or Most Recently Relevant to Health Maintenance Insurance [facility] PPO Member Subscriber Plan / Payer (Ef fective 2020-Present) Name:Arely Carnes Relation to Subscriber:Spouse Name:Domingo Carnes Date of :1983 (Home) Address: [address] [place] [address] Payer ID:[id number] ([employer]) Type:Not on file Address: [address] [place] [id number]
--- OUTSIDE RECORDS SUMMARY | 2025-02-24 12:47 | XMS_ITS | Encounter Summary ---
Author Organization [facility] Address [address] [place] [address] Care Team Providers Care Welt Stitcher Name Role Phone Bessie Meade DO Primary Care Provider [phone] Beata Dixon APRN Primary Care Provider [phone] Reason for Referral * Consultation (Routine) - Authorized Specialty Diagnoses / Procedures Referred By Contac t Referred To Contact Neurology / Pain Medicine Diagnoses Atypical face pain Disorder of nose Unspecified disorder of nose and nasal sinuses Sid Panchal MD [address] [facility], [address] [address] Phone: tel: fax: Referral ID Status Reason Start Date Expiration Date Visits Requested Visits Authorized [id number] Authorized Specialty Services Required 09/17/2024 03/19/2026 1 1 Encounter Details Date Type Department Care Team (Late st Contact Info) Description 09/17/2024 Community [facility] [address] [place] [address] Sid Panchal MD [address] [facility], [place] [phone] Atypical face pain (Primary Dx); Disorder of nose; Unspecified disorder of nose and nasal sinuses Social History Tobacco Use Types Packs/Day Years [...] Date Recorded Patient Health Questionnaire-2 Score 0 08/22/2024 Hunger Vital Sign Answer Date Recorded Within [...] place to sleep or slept in a snf (including now)? No 02/15/2024 PHQ-9 Answer Date Recorded Patient Health Questionnaire-9 Score 0 08/22/2024 Safety and Environment Answer Date Fredy rded [...] Recorded In the past 12 months has e electric, gas, oil, or water company [...] Description 02/26/2025 3:45 PM EDT Office Visit [facility] Otolaryngology [address], [address] [place] [address] Juan Francisco Duarte MD [address] [facility] [address] [place] [address] 03/03/2025 10:30 AM EDT Office Visit [facility] [address] [place] [address] Abby Fox [address] [place] [address] 03/12/2025 12:30 PM EDT Consult [facility] [address], 1st [place] [address] Thierry Walton DO [address] [place] [address] 03/27/2025 9:00 AM EDT Office Visit [facility] Building Obstetrics and Gynecology [address] [facility], [address] [place] [address] Nandini Segura, COPIER AND PRINTER FIELD TECHNICIAN [address] [facility] [address] [place] [id number] 08/08/2025 9:00 AM EST [facility] Room E214 [address] [place] [address] Jenny Prieto, DDS [address] [facility] [address] [place] [address] Scheduled Referrals Name Type Priority Associated Diagnoses Order Schedule Ambulatory referral to Neurology Outpatient Referral Routine Atypical face pain Disorder of nose Unspecified disorder of nose and nasal sinuses Expected: 10/17/2024, Expires: 03/19/2026 documented as of this encounter Visit Diagnoses Diagnosis Atypical face pain- Primary Disorder of nose Other diseases of nasal cavity and sinuses Unspecified disorder of nose and nasal sinuses documented in this encounter Additional Health Concerns Infection Onset Date Last Indicated Resolved Time MRSA 03/18/2024 03/18/2024 Assessment Noted Time PHQ-9 Depression Total Score: 0 08/23/19 11:14 AM EDT A fall risk assessment has been complete d for the patient 06/25/2024 10:04 AM EST A Body Mass Index follow-up plan has been documented for the patient 08/22/2024 12:49 PM EDT documented as of this encounter Care Teams Welt Stitcher Relationship Specialty Start Date End Date Bessie Meade DO [address] [place] [address] PCP - General 06/25/24 10/09/24 Beata Dixon APRN [address] [place] [address] PCP - General Family Medicine 10/10/24 documented as of this encounter
--- OUTSIDE RECORDS SUMMARY | 2025-02-24 12:47 | XMS_ITS | Encounter Summary ---
Author Organization [facility] [place], [place], [place] Address [address] [place] [address] Care Team Providers Care Clinical Staff Educator Name Role Phone Devan Chaudhry MD Primary Care Provider [phone] Reason for Visit * Reason Onset Date Comments Appointment 10/03/2023 PHONE CALL Encounter Details Date Type Department Care Team (Late st Contact Info) Description 10/03/2023 Telephone [facility] Urology - [address] [place] [address] Jose Luis Mcknight MD [address] [facility] [address] [place] [address] Appointment (PHONE CALL) Social History Tobacco Use Types Packs/Day Years [...] Date Fredy rded Speak language other than Emirati at home Not on file 07/01/2023 Want [...] encounter Miscellaneous Notes * Telephone Encounter - Aron Walter - 01/01/2025 3:59 PM EDT PHONE CALL documented in this encounter Plan of Treatment Not on file documented as of this encounter Visit Diagnoses Not on filedocumented in this encounter Care Teams Clinical Staff Educator Relationship Specialty Start Date End Date Devan Chaudhry MD [address] [place] [address] PCP - General Family Medicine 09/27/23 02/21/25 documented as of this encounter
--- OUTSIDE RECORDS SUMMARY | 2025-02-24 12:48 | XMS_ITS | Encounter Summary ---
Author Organization [facility] Address [address] [place] [address] Care Team Providers Care Airport Utility Worker Name Role Phone Beata Dixon APRN Primary Care Provider Encounter Details Date Type Department Care Team (Late st Contact Info) Description 01/31/2025 Telephone CASE MANAGEMENT [address] [place] [address] Kailee Baldwin Social History Tobacco Use Types Packs/Day Years [...] any time in the past 12 m [facility], were you homeless or living in a [...] encounter Miscellaneous Notes * Telephone Encounter - Kailee Baldwin Cayla - 01/31/2025 3:15 PM EDT SW called pt to provide support and resources. Pt stated that she is in a lot of pain at the momentand she is unable to talk. SW offered to call back next week and pt stated that she would appreciate that. documented in this encounter Plan of Treatment Upcoming Encounters Date Type Department Care Team (Late st Contact Info) Description 02/26/2025 3:45 PM EDT Office Visit [facility] Otolaryngology [address], 3rd [place] [address] Juan Francisco Duarte MD [address] [facility] [address] [place] [address] 03/03/2025 10:30 AM EDT Office Visit [facility] Eye Care [address] [place] [address] Abby Fox [address] [place] [address] 03/12/2025 12:30 PM EDT Consult [facility] [address], 1st [place] [address] Thierry Walton DO [address] [facility] [address] [place] [address] 03/27/2025 9:00 AM EDT Office Visit Medical Office Building Obstetrics and Gynecology [address] [facility], [address] [place] [address] Nandini Segura, ELECTRICAL DISCHARGE MACHINE OPERATOR [address] [facility] [address] [place] [address] 08/08/2025 9:00 AM EST Office Visit [facility] Room [address] [place] [address] Jenny Prieto, PRAMODS [address] [facility] [address] [place] [address] documented as of this encounter [...] documented as of this encounter Care Teams Airport Utility Worker Relationship Specialty Start Date End Date Beata Dixon APRN [address] [place] [address] PCP - General Family Medicine 10/10/24 documented as of this encounter
--- OUTSIDE RECORDS SUMMARY | 2025-02-24 12:48 | XMS_ITS | Encounter Summary ---
Author Organization Healthcare Address [address] [place] [address] Care Team Providers Care Development Disability Specialist Name Role Phone Zack Beata Macias APRN Primary Care Provider Encounter Details Date Type Department Care Team (Latest Contact Info) Description 01/23/2025 Travel Social History Tobacco Use Types Packs/Day [...] time in the past 12 m [facility], were you homeless or living in [...] Description 02/26/2025 3:45 PM EDT Office Visit [facility] [address] 3rd [place] [address] Baxter, Juan Francisco Mcwilliams MD [address] [place] [address] 03/03/2025 10:30 AM EDT Office Visit [facility] [address] [place] [address] Fox Abby Martinez [address] [place] [address] 03/12/2025 12:30 PM EDT Consult [facility] [address] 1[address] [place] [address] Thierry Walton, DO [address] [place] [address] 03/27/2025 9:00 AM EDT Office Visit Medical Office Building Obstetrics and Gynecology [address] [facility], [address] [place] [address] Nandini Segura APRN [address] [facility] [address] [place] [address] 08/08/2025 9:00 AM EST [facility] Room [address] [place] [address] Jenny Prieto, DDS [address] [facility] [address] [place] [address] documented as of this encounter [...] documented as of this encounter Care Teams Development Disability Specialist Relationship Specialty Start Date End Date Beata Dixon APRN [address] [place] [phone] PCP - General Family Medicine 10/10/24 documented as of this encounter
--- OUTSIDE RECORDS SUMMARY | 2025-02-24 12:48 | XMS_ITS | Encounter Summary ---
Author Organization Healthcare Address [address] [place] [address] Care Team Providers Care Director Geothermal Operations Name Role Phone Beata Dixon APRN Primary Care Provider [phone] Bessie Meade DO Primary Care Provider [phone] Beata Dixon APRN Primary Care Provider [phone] Encounter Details Date Type Department Care Team (Late st Contact Info) Description 01/14/2024 Orders Only External Location [address] [place] [address] Vernon Barahona PA [address] [place] [address] Social History Tobacco Use Types Packs/Day Years Used Date Smoking Tobacco: Every Day Cigarettes 1 22.7 Started: 2002 Smokeless Tobacco: Never Alcohol Use Standard Drinks/Week Comments No 0 (1 standard drink = 0.6 oz pur e alcohol) Humiliation, Afraid, Rape, and Kick questionnair e Answer Date Recorded Within the last year, have y ou been afraid of your partner or ex-partner? No 10/24/2023 Within the last year, have y ou been humiliated or emotionally abused in other ways by your partner or ex-partner? No Within the last year, have y ou been kicked, hit, slapped, or otherwise physically hurt by your partner or ex-partner? No 10/24/2023 Within the last year, have y ou been raped or forced to have any kind of sexual activity by your partner or ex-partner? No 10/24/2023 PHQ-2 Answer Date Recorded Patient Health Questionnaire-2 Score 0 01/18/2024 Hunger Vital Sign Answer Date Recorded Within the past 12 months, y ou worried that your food would run out before you got the money to buy more. Never true 10/24/19 24 Within the past 12 months, t he food you bought just didn't last and you didn't have money to get more. Never true 10/24/2023 PRAPARE - Transportation Answer Date Re corded In the past 12 months, has l ack of transportation kept you from medical appointments or from getting medications? No 10/10 In the past 12 months, has l ack of transportation kept you from meetings, work, or from getting things needed for daily living? No 10/24/2023 Housing Stability Vital Sign Answer Oliver e Recorded In the last 12 months, was t here a time when you were not able to pay the mortgage or rent on time? No 10/24/2023 Number of [address] Lived in the Last Year Not on f ile 10/24/2023 In the last 12 months, was t here a time when you did not have a steady place to sleep or slept in a fdc (including now)? No 10/24/2023 Utilities Answer Date Recorded In the past 12 months has th e electric, gas, oil, or water company threatened to shut off services in your home? No 10/24/2023 PHQ-2A Answer Date Recorded Patient Health Questionnaire-2 [...] Description 02/26/2025 3:45 PM EDT Office Visit [facility] [address] 3rd [place] [address] Bunola, Juan Francisco Mcwilliams MD [address] [place] [address] 03/03/2025 10:30 AM EDT Office Visit [facility] [address] [place] [address] Abby Fox E [address] [place] [address] 03/12/2025 12:30 PM EDT Consult [place] [facility] [address] 1st [place] [address] Thierry Walton, [address] [place] [address] 03/27/2025 9:00 AM EDT Office Visit Medical Office Building Obstetrics and Gynecology [address] [facility], [address] [place] [address] Nandini Segura, STEPHANIE [address] [facility] [address] [place] [address] 08/08/2025 9:00 AM EST Office Visit [facility] [address] [place] [address] Jenny Prieto, DDS [address] [place] [address] documented as of this encounter Procedures Procedure Name Priority Date/Time Associated Diagnosis Comments CT OUTSIDE IMAGES 01/14/2024 7:11 PM EDT documented in this encounter Results * CT OUTSIDE IMAGES (01/14/2024 7:11 PM EDT) Anatomical Region Laterality Modality Computed Tomogra phy 01/14/2024 7:11 PM EDT Vernon GONZ[address] CT PROCEDURES Final Result documented in this encounter Visit Diagnoses Not on filedocumented in this encounter Additional Health Concerns Infection Onset Date Last Indicated Resolved Time 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
--- OUTSIDE RECORDS SUMMARY | 2025-02-24 12:48 | XMS_ITS | Encounter Summary ---
Author Organization Healthcare Address [address] [place] [address] Care Team Providers Care Marine Equipment Sales Engineer Name Role Phone Beata Dixon APRN Primary Care Provider [phone] Bessie Meade DO Primary Care Provider [phone] Beata Dixon APRN Primary Care Provider [phone] Encounter Details Date Type Department Care Team (Late st Contact Info) Description 11/30/2023 Orders Only External Location [address] [place] [address] Provider, External Social History Tobacco Use Types [...] Date Recorded Patient Health Questionnaire-2 Score 0 10/24/2023 Hunger Vital Sign Answer Date Recorded Within [...] place to sleep or slept in a chcf (including now)? No 10/24/2023 Utilities Answer Date Recorded In the past 12 months has th e electric, gas, oil, or water company threatened to shut off services in your home? No 10/24/2023 PHQ-2A Answer Date Recorded Patient Health Questionnaire-2 Score 0 07/01/2022 Comments Unknown Sex and Gender Information Value Date Recorded Sex Assigned at Not on file Legal Sex Female 6:22 PM EDT Gender Identity Not on file Sexual Orientation Not on file documented as of this encounter Plan of Treatment Upcoming Encounters Date Type Department Care Team (Late st Contact Info) Description 02/26/2025 3:45 PM EDT Office Visit [facility] [address], 3rd [place] [address] [place], Juan Francisco Mcwilliams MD [address] [place] [address] 03/03/2025 10:30 AM EDT Office Visit [facility] [address] [place] [address] Abby Fox [address] [place] [id number] 03/12/2025 12:30 PM EDT Consult [facility] [address], 1st [place] [address] Thierry Walton DO [address] [place] [address] 03/27/2025 9:00 AM EDT Office Visit Medical Office Building Obstetrics and Gynecology [address] [facility], [address] [place] [address] Nandini Segura APRN [address] [facility] [address] [place] [address] 08/08/2025 9:00 AM EST Office Visit [facility] [address] E214 [address] [place] [address] Jenny Prieto, DDS [address] [facility] [address] [place] [address] documented as of this encounter Procedures Procedure Name Priority Date/Time Associated Diagnosis Comments CT OUTSIDE IMAGES 11/30/2023 3:42 PM EDT documented in this encounter Results * CT OUTSIDE IMAGES (11/30/2023 3:42 PM EDT) Anatomical Region Laterality Modality Computed Tomogra phy 11/30/2023 3:42 PM EDT External Provider IMG CT PROCEDURES Final Result documented in this encounter Visit Diagnoses Not on filedocumented in this encounter Additional Health Concerns Infection Onset Date Last Indicated Resolved Time MRSA 03/18/2024 03/18/2024 Assessment Noted Time A fall risk assessment has been complete d for the patient 08/31/2021 9:57 AM EDT A Body Mass Index follow-up plan has been documented for the patient 10/24/2023 12:06 PM EDT documented as of this encounter Care Teams Marine Equipment Sales Engineer Relationship Specialty Start Date End Date Beata Dixon APRN [address] [place] [address] PCP - General Family Medicine 10/03/23 06/24/24 Bessie Meade DO [address] [place] [address] PCP - General 06/25/24 10/09/24 Beata Dixon APRN [address] [place] [address] PCP - General Family Medicine 10/10/24 documented as of this encounter
--- OUTSIDE RECORDS SUMMARY | 2025-02-24 12:48 | XMS_ITS | Encounter Summary ---
Author Organization Healthcare Address [address] [place] [address] Care Team Providers Care Mission Assessment Specialist Name Role Phone Beata Dixon APRN Primary Care Provider [phone] Bessie Meade DO Primary Care Provider [phone] Beata Dixon APRN Primary Care Provider [phone] Encounter Details Date Type Department Care Team (Late st Contact Info) Description 01/14/2024 Outside Procedure External Location [address] [place] [address] Provider, Sandip [place] Social History Tobacco Use Types Packs/Day Years [...] to sleep or slept in a senior care (including now)? No 10/24/2023 Utilities Answer Date [...] Description 02/26/2025 3:45 PM EDT Office Visit [place] [facility] [address], 3rd [place] [address] WhitneyJuan Francisco MD [address] [place] [address] 03/03/2025 10:30 AM EDT Office Visit [facility] [address] [place] [address] Abby Fox [address] [place], [place] [id number] 03/12/2025 12:30 PM EDT Consult [facility] [address], 1[address] [place] [address] Thierry Walton DO [address] [place] [address] 03/27/2025 9:00 AM EDT Office Visit Medical Office Building Obstetrics and Gynecology [address] [facility] [address] [facility], [address] [place] [address] Nandini Segura, ELIGIBILITY COUNSELOR [address] [facility] [address] [place] [address] 08/08/2025 9:00 AM EST Office Visit [facility] Room [address] [place] [address] Jenny Prieto, DDS [address] [facility] [address] [place] [address] documented as of this encounter Procedures Procedure Name Priority Date/Time Associated Diagnosis Comments CT ABDOMEN PELVIS W IV CONTRAST 01/14/2024 5:37 PM EDT documented in this encounter Results * CT Abdomen Pelvis w IV Contrast (01/14/2024 5:37 PM EDT) Anatomical Region Laterality Modality Abdomen, Pelvis Computed Tomogra phy 01/14/2024 5:37 PM EDT Narrative 01/14/2024 7:50 PM EDT [facility] [address] [place] [address] Name: JAYLYN CARNES Exam Date: 01/14/2024 : 1990 Age 33 years Gender: F Physician: FATOUMATA LAY Facility: [facility] Facility HSV: Outpatient Exam: CT ABD PEL W (IV CONT ONLY) FINAL REPORT TECHNIQUE: null CLINICAL HISTORY: Abdominal Pain COMPARISON: null FINDINGS: Exam: CT Abdomen and Pelvis with contrast Comparison: 11/30/2023, 11/06/2023 Clinical history: Abdominal pain Findings: The liver, spleen and pancreas do not demonstrate any acute process. Gallbladder not identified and may have been previously removed. No choledocholithiasis or biliary obstruction. Normal adrenal glands. Right kidney has a normal appearance. No right renal stones or hydronephrosis. Severe chronic left hydronephrosis with severe renal cortical thinning, unchanged in appearance when compared to prior. No left hydroureter. No abdominal aortic aneurysm. No small bowel obstruction Appendix not identified and acute appendicitis is not excluded. No colitis or diverticulitis. Moderate amount of stool in the right colon. Left colon is decompressed. Urinary bladder does not demonstrate stones or wall thickening. Uterus has a normal appearance for CT. Adnexa have a normal appearance for CT. No free fluid. Bilateral L5 pars defects with grade 1-2 anterior subluxation. Degenerative disease at L5-S1. Mild bilateral hip arthritis. IMPRESSION: Impression: 1. No acute intra-abdominal process. 2. Stable severe chronic left hydronephrosis and renal cortical thinning likely reflective of chronic UPJ obstruction. 3. Appendix not identified and acute appendicitis is not excluded. If there is clinical concern for acute appendicitis then repeat CT with the benefit of oral contrast can be performed. No colitis or diverticulitis. Moderate amount of stool in the right colon. Left colon is decompressed. Authenticated and EASTERN Dictated By: Yvonne Mcarthur Transcribed By: Transcribed On: 01/14/2024 7:49 PM Legally authenticated by ROBERT ROTHMAN 2024-01-14 19:49:05 Electronically signed by: Yvonne Mcarthur 01/14/2024 Thank you for referring JAYLYN CARNES to [facility]. Legally authenticated by ROBERT ROTHMAN 2024-01-14 19:49:05 Procedure Note Provider, Generic [place] - 01/14/2024 [facility] [address] [place] [address] Name: JAYLYN CARNES Exam Date: 01/14/2024 : 1990 Age 33 years Gender: F Physician: FATOUMATA LAY Facility: [facility] Facility HSV: Outpatient Exam: CT ABD PEL W (IV CONT ONLY) FINAL REPORT TECHNIQUE: null CLINICAL HISTORY: Abdominal Pain COMPARISON: null FINDINGS: Exam: CT Abdomen and Pelvis with contrast Comparison: 11/30/2023, 11/06/2023 Clinical history: Abdominal pain Findings: The liver, spleen and pancreas do not demonstrate any acute process. Gallbladder not identified and may have been previously removed. No choledocholithiasis or biliary obstruction. Normal adrenal glands. Right kidney has a normal appearance. No right renal stones or hydronephrosis. Severe chronic left hydronephrosis with severe renal cortical thinning, unchanged in appearance when compared to prior. No left hydroureter. No abdominal aortic aneurysm. No small bowel obstruction Appendix not identified and acute appendicitis is not excluded. No colitis or diverticulitis. Moderate amount of stool in the right colon. Left colon is decompressed. Urinary bladder does not demonstrate stones or wall thickening. Uterus has a normal appearance for CT. Adnexa have a normal appearance for CT. No free fluid. Bilateral L5 pars defects with grade 1-2 anterior subluxation. Degenerative disease at L5-S1. Mild bilateral hip arthritis. IMPRESSION: Impression: 1. No acute intra-abdominal process. 2. Stable severe chronic left hydronephrosis and renal cortical thinning likely reflective of chronic UPJ obstruction. 3. Appendix not identified and acute appendicitis is not excluded. If there is clinical concern for acute appendicitis then repeat CT with the benefit of oral contrast can be performed. No colitis or diverticulitis. Moderate amount of stool in the right colon. Left colon is decompressed. Authenticated and EASTERN Dictated By: Yvonne Mcarthur Transcribed By: Transcribed On: 01/14/2024 7:49 PM Legally authenticated by ROBERT ROTHMAN 2024-01-14 19:49:05 Electronically signed by: Yvonne Mcarthur 01/14/2024 Thank you for referring JAYLYN CARNES to [facility]. Legally authenticated by ROBERT ROTHMAN 2024-01-14 19:49:05 Generic [place] Provider IMG CT PROCEDURES Fi nal Result documented in this encounter Visit Diagnoses Not on filedocumented in this encounter Additional Health Concerns Infection Onset Date Last Indicated Resolved Time MRSA 03/18/2024 03/18/2024 Assessment Noted Time A Body Mass Index follow-up plan has been documented for the patient 01/09/2024 9:07 AM EDT documented as of this encounter Care Teams Mission Assessment Specialist Relationship Specialty Start Date End Date Beata Dixon APRN [address] [place] [address] PCP - General Family Medicine 10/03/23 06/24/24 Bessie Meade DO [address] [place] [address] PCP - General 06/25/24 10/09/24 Beata Dixon APRN [address] [place] [address] PCP - General Family Medicine 10/10/24 documented as of this encounter
--- OUTSIDE RECORDS SUMMARY | 2025-02-24 12:48 | XMS_ITS | Encounter Summary ---
Author Organization Healthcare Address [address] [place] [address] Care Team Providers Care Automotive Designer Name Role Phone Ricardo Dixon APRN Primary Care Provider [phone] Pcp, Dorita Primary Care Provider UnavailRicardo Luque APRN Primary Care Provider [phone] Bessie Meade DO Primary Care Provider [phone] Ricardo Dixon APRN Primary Care Provider [phone] Encounter Details Date Type Department Care Team (Late st Contact Info) Description 09/20/2023 Outside Procedure External Location [address] [place] [address] Ricardo Dixon APRN [address] [place] [address] Social History Tobacco Use Types Packs/Day Years Used Date Smoking Tobacco: Every Day Cigarettes 1 22.7 Started: 2002 Smokeless Tobacco: Never Alcohol Use Standard Drinks/Week Comments No 0 (1 standard drink = 0.6 oz pur e alcohol) PHQ-2 Answer Date Recorded Patient Health Questionnaire-2 Score 1 09/08/2023 PHQ-2A Answer Date Recorded Patient Health Questionnaire-2 [...] Description 02/26/2025 3:45 PM EDT Office Visit [facility] Otolaryngology [address], 3rd [place] [address] Juan Francisco Duarte MD [address] [facility] [address] [place] [address] 03/03/2025 10:30 AM EDT Office Visit [facility] [address] [place] [address] Abby Fox [address] [place] [address] 03/12/2025 12:30 PM EDT Consult [facility] [address], [address]st [place] [address] Thierry Walton DO [address] [facility] [address] [place] [address] 03/27/2025 9:00 AM EDT Office Visit Medical Office Building Obstetrics and Gynecology [address] [facility], [address] [place] [address] Nandini Segura, DOOR TECHNICIAN [address] [facility] [address] [place] [address] 08/08/2025 9:00 AM EST Office Visit [facility]facial [facility] Room E214 [address] [place] [address] Jenny Prieto DDS [address] [facility] [address] [place] [address] documented as of this encounter Procedures Procedure Name Priority Date/Time Associated Diagnosis Comments US ABDOMEN 09/20/2023 8:23 AM EDT documented in this encounter Results * US Abdomen (09/20/2023 8:23 AM EDT) Anatomical Region Laterality Modality Abdomen Ultrasound 09/20/2023 8:23 AM EDT Narrative 09/20/2023 1:41 [place] [address] Name: JAYLYN CARNES Exam Date: 09/20/2023 : 1990 Age 33 years Gender: F Physician: RICARDO DIXON Facility: [facility] Facility HSV: Outpatient Exam: ABDOMEN US ULTRASOUND ABDOMEN HISTORY: Abdominal bloating. PROCEDURE: Sonographic images of abdomen were performed. FINDINGS: The liver is unremarkable. Spleen has a normal sonographic appearance. Gallbladder is absent. No biliary ductal dilatation is identified. Right kidney measures 14.2 cm in length. Left kidney measures 12.3 cm in length. There is mild distention of the right collecting system. There is severe distention of the left collecting system. Pancreas is not well visualized. IVC and aorta are grossly unremarkable. There is no obvious fluid collection. IMPRESSION: Severe left hydronephrosis with likely significant cortical thinning of the left kidney. Mildly distended right collecting system. Gallbladder absent. The films were reviewed, interpreted, and dictated by Dr. Love Transcribed by Josefina Sampson PA-C Dictated By: ASHLEY LOVE Transcribed By: Ashley Love Transcribed On: 09/20/2023 1:13 PM Electronically signed by: ASHLEY LOVE 09/20/2023 [facility] you [facility]. Legally authenticated by POPE ASHLEY Macias 2023-09-20 13:13:27 Procedure Note Provider, Generic [place] - 09/20/2023 [place] [address] Name: JAYLYN CARNES Exam Date: 09/20/2023 : 1990 Age 33 years Gender: F Physician: RICARDO DIXON Facility: [facility] Facility HSV: Outpatient Exam: ABDOMEN US ULTRASOUND ABDOMEN HISTORY: Abdominal bloating. PROCEDURE: Sonographic images of abdomen were performed. FINDINGS: The liver is unremarkable. Spleen has a normal sonographic appearance. Gallbladder is absent. No biliary ductal dilatation isidentified. Right kidney measures 14.2 cm in length. Left kidney measures 12.3 cm in length. There is mild distention of the right collecting system. Thereis severe distention of the left collecting system. Pancreas is not well visualized. IVC and aorta are grossly unremarkable. There is no obviousfluid collection. IMPRESSION: Severe left hydronephrosis with likely significant cortical thinning of the left kidney. Mildly distended right collecting system. Gallbladder absent. The films were reviewed, interpreted, and dictated by Dr. Love Transcribed by Josefina Sampson PA-C Dictated By: ASHLEY LOVE Transcribed By: Ashley Love Transcribed On: 09/20/2023 1:13 PM Electronically signed by: ASHLEY LOVE 09/20/2023 Thank you for referring JAYLYN CARNES to [facility]. Legally authenticated by POPE ASHLEY Macias 2023-09-20 13:13:27 us Ricardo Dixon APRN IMG US PROCEDURES [...] plan has been documented for the patient 09/08/2023 4:17 PM EDT documented as of this encounter Care Teams Automotive Designer Relationship Specialty Start Date End Date Ricardo Dixon APRN [address] [place] [address] PCP - General Family Medicine 09/08/23 09/24/23 Pcp, Dorita [address] [place] [address] PCP - General Family Medicine 09/28/23 10/02/23 Ricardo Dixon APRN [address] [place] [address] PCP - General Family Medicine 10/03/23 06/24/24 Bessie Meade DO [address] [place] [address] PCP - General 06/25/24 10/09/24 Ricardo Dixon APRN [address] [place] [address] PCP - General Family Medicine 10/10/24 documented as of this encounter
--- OUTSIDE RECORDS SUMMARY | 2025-02-24 12:48 | XMS_ITS | Encounter Summary ---
Author Organization Healthcare Address [address] [place] [address] Care Team Providers Care Ribbon Inker Name Role Phone Zack Beata Macias APRN Primary Care Provider Encounter Details Date Type Department Care Team (Latest Contact Info) Description 02/13/2025 Travel Social History Tobacco Use Types Packs/Day [...] any time in the past 12 m [facility], were you homeless or living in a senior living (including now)? No 11/13/2024 Safety and Environment [...] Description 02/26/2025 3:45 PM EDT Office Visit [facility] [address], 3rd [place] [address] [place], Juan Francisco Mcwilliams MD [address] [place] [address] 03/03/2025 10:30 AM EDT Office Visit [facility] [address] [place] [address] Fox Abby Martinez [address] [place] [address] 03/12/2025 12:30 PM EDT Consult [facility] [address] [place] [address] Thierry Walton, DO [address] [place] [address] 03/27/2025 9:00 AM EDT Office Visit Medical Office Building Obstetrics and Gynecology [address] [facility], [address] [place] [address] Nandini Segura APRN [address] [facility] [address] [place] [address] 08/08/2025 9:00 AM EST [facility] [address] [place] [address] Jenny Prieto, DDS [address] [facility] [address] [place] [address] documented as of this encounter [...] documented as of this encounter Care Teams Ribbon Inker Relationship Specialty Start Date End Date Beata Dixon APRN [address] [place] [id number] PCP - General Family Medicine 10/10/24 documented as of this encounter
--- OUTSIDE RECORDS SUMMARY | 2025-02-24 12:48 | XMS_ITS | Encounter Summary ---
Author Organization [facility] Address [address] [place], [place] [id number] Care Team Providers Care Blindmaker Name Role Phone Beata Dixon APRN Primary Care Provider [phone] Reason for Referral * Consultation (Routine) - Authorized Specialty Diagnoses / Procedures Referred By Jacobo marte Referred To Contact Infectious Diseases Diagnoses Facial rash Facial pain MRSA infection Beata Dixon APRN [address] [place] [address] Phone: tel: fax: Referral ID Status Reason Start Date Expiration Date Visits Requested Visits Authorized [id number] Authorized Specialty Services Required 02/20/2025 08/22/2026 1 1 Scheduling Instructions Pt would like to go to [place]. ty Encounter Details Date Type Department Care Team (Late st Contact Info) Description 02/20/2025 Orders Only [facility] [address] [place] [address] Flora Briggs LPN [facility] Facial rash (Primary Dx); Facial pain; MRSA infection Social History Tobacco Use Types Packs/Day Years [...] time in the past 12 m [facility], were you homeless or living in a care home (including now)? No 11/13/2024 Safety and [...] Description 02/26/2025 3:45 PM EDT Office Visit [facility] Otolaryngology [address], [address] [place] [address] Juan Francisco Duarte MD [address] [facility] [address] [place] [address] 03/03/2025 10:30 AM EDT Office Visit [facility] [address] [place] [address] Abby Fox [address] [place] [address] 03/12/2025 12:30 PM EDT Consult [facility] [address], 1st [place] [address] Thierry Walton DO [address] [facility] [address] [place] [address] 03/27/2025 9:00 AM EDT Office Visit Medical Office Building Obstetrics and Gynecology [address] [facility] [facility], [address] [place] [address] Nandini Segura, STEPHANIE [address] [facility] [facility] [address] [place] [address] 08/08/2025 9:00 AM EST Office Visit [facility]facial Pain Clinic O[facility] [address] [place] [address] Jenny Prieto, ROME [address] [facility] [address] [place] [address] Scheduled Referrals Name Type Priority Associated Diagnoses Order Schedule Ambulatory referral to Infectious Disease Outpatient Referral Routine Facial rash Facial pain MRSA infection 1 Occurrences starting 02/20/2025 until 08/24/2026 documented as of this encounter Visit Diagnoses Diagnosis Facial rash- Primary Facial pain Headache MRSA infection documented in this encounter Additional Health Concerns Infection Onset Date Last Indicated Resolved Time MRSA 03/18/2024 03/18/2024 Assessment Noted Time PHQ-9 Depression Total Score: 0 02/20/20 1:07 PM EDT A fall risk assessment has been complete d for the patient 01/23/2025 11:02 AM EDT A Body Mass Index follow-up plan has been documented for the patient 02/19/2025 2:26 PM EDT documented as of this encounter Care Teams Blindmaker Relationship Specialty Start Date End Date Beata Dixon APRN [address] [place] [address] PCP - General Family Medicine 10/10/24 documented as of this encounter
--- OUTSIDE RECORDS SUMMARY | 2025-02-24 12:48 | XMS_ITS | Encounter Summary ---
Author Organization Healthcare Address [address] [place] [address] Care Team Providers Care Lens Edger Name Role Phone Beata Dixon APRN Primary Care Provider [phone] Bessie Meade DO Primary Care Provider [phone] Beata Dixon APRN Primary Care Provider [phone] Encounter Details Date Type Department Care Team (Late st Contact Info) Description 11/06/2023 Orders Only External Location [address] [place] [address] Provider, External Social History Tobacco Use Types [...] place to sleep or slept in a fci (including now)? No 10/24/2023 Utilities Answer Date [...] Description 02/26/2025 3:45 PM EDT [facility] [address], 3rd [place] [address] [place], Juan Francisco Mcwilliams MD [address] [place] [address] 03/03/2025 10:30 AM EDT Office Visit [facility] [address] [place] [address] Abby Fox [address] [place] [id number] 03/12/2025 12:30 PM EDT Consult [facility] [address], 1[address] [place] [address] Thierry Walton DO [address] [place] [address] 03/27/2025 9:00 AM EDT Office Visit Medical Office Building Obstetrics and Gynecology [address] [facility], [address] [place] [address] Nandini Segura APRN [address] [facility] [address] [place] [address] 08/08/2025 9:00 AM EST Office Visit [facility] Room E214 [address] [place] [address] Jenny Prieto, DDS [address] [facility] [address] [place] [address] documented as of this encounter Procedures Procedure Name Priority Date/Time Associated Diagnosis Comments CT OUTSIDE IMAGES 11/06/2023 6:31 PM EDT documented in this encounter Results * CT OUTSIDE IMAGES (11/06/2023 6:31 PM EDT) Anatomical Region Laterality Modality Computed Tomogra phy 11/06/2023 6:31 PM EDT External Provider IMG CT PROCEDURES [...] documented as of this encounter Care Teams Lens Edger Relationship Specialty Start Date End Date Beata Dixon APRN [address] [place] [address] PCP - General Family Medicine 10/03/23 06/24/24 Bessie Meade DO [address] [place] [address] PCP - General 06/25/24 10/09/24 Beata Dixon APRN [address] [place] [address] PCP - General Family Medicine 10/10/24 documented as of this encounter
--- OUTSIDE RECORDS SUMMARY | 2025-02-24 12:48 | XMS_ITS | Encounter Summary ---
Author Organization Healthcare Address [address] [place] [address] Care Team Providers Care Manager Distribution Center Name Role Phone ZackBeata Gilberto BROWN Primary Care Provider [phone] Encounter Details Date Type Department Care Team (Late st Contact Info) Description 02/11/2025 Telephone [facility] [address], 3rd [place] [address] Francie Cabrales Social History Tobacco Use Types Packs/Day Years [...] any time in the past 12 m [facility], were you homeless or living in a long-term (including now)? No 11/13/2024 Safety and Environment [...] encounter Miscellaneous Notes * Telephone Encounter - Francie Cabrales Samantha - 02/11/2025 6:58 PM EDT Patient called requesting nasal spray. Patient reports having terrible headaches, a dry nose, and trouble breathing. The patient added that it feels like her nose is blocked off but nothing comes outwhen she tries to blow her nose. Patient also reports whistling, popping, and crackling sounds whenshe breathes. Patient would like a nasal spray for relief of her symptoms called into [facility] in [place], [place]. Patient denies any drug allergies. * Telephone Encounter - Francie Cabrales - 02/11/2025 6:42 PM EDT Called to reschedule patient's 02/12/[address] Berman is needed in the OR. The rescheduled appointment is on 02/13/2025 at 11:45am. documented in this encounter Plan of Treatment Upcoming Encounters Date Type Department Care Team (Late st Contact Info) Description 02/26/2025 3:45 PM EDT Office [facility] [address], [address]rd [place] [address] [place] Francisco MD [address] [facility] [address] [place] [address] 03/03/2025 10:30 AM EDT Office Visit [facility] [address] [place] [address] Abby Fox [address] [place] [address] 03/12/2025 12:30 PM EDT Consult [facility] [address], [address]st [place] [address] Thierry Walton DO [address] [facility] [address] [place] [address] 03/27/2025 9:00 AM EDT Office Visit Medical Office Building Obstetrics and Gynecology [address] [facility], [address] [place] [address] Nandini Segura, STAFFING ASSISTANT [address] [facility] [address] [place] [address] 08/08/2025 9:00 AM EST Office [facility] Room E214 [address] [place] [address] Jenny Prieto, DDS [address] [facility] [address] [place] [address] documented as of this encounter [...] documented as of this encounter Care Teams Manager Distribution Center Relationship Specialty Start Date End Date Beata Dixon APRN [address] [place] [address] PCP - General Family Medicine 10/10/24 documented as of this encounter
--- OUTSIDE RECORDS SUMMARY | 2025-02-24 12:48 | XMS_ITS | Encounter Summary ---
Author Organization Healthcare Address [address] [place] [address] Care Team Providers Care Art Studio Teacher Name Role Phone ZackBeata Gilberto BROWN Primary Care Provider [phone] Reason for Visit * Reason Onset Date Comments HCN Same Day Appt/Overbook Request 01/17/2025 Encounter Details Date Type Department Care Team (Late st Contact Info) Description 01/17/[address] [facility] [address] [place] [address] None, None [address] [place], [place] [id number] HCN Same Day Appt/Overbook Request Social History Tobacco Use Types Packs/Day Years [...] any time in the past 12 m [facility], were you homeless or living in a [place] [facility] facility (including now)? No 11/13/2024 Safety and Environment [...] encounter Miscellaneous Notes * Telephone Encounter - Angela Cardona - 01/20/2025 1:31 PM EDT Pt returning call from Mesha. * Telephone Encounter - Elin Law - 01/20/2025 10:14 AM EDT Triage Note 01/20/2025 10:14 AM Called patient. No answer. Left voice mail requesting a call back. * Telephone Encounter - Ana María Kelley - 01/17/2025 9:56 PM EDT Same Day Appt/Overbook Request Reason for Call: Patient has referral for rash of face. Best contact number: [phone] (home) Optimal time of day to reach caller: ANYTIME Additional comments/information from caller: None Note: Please do not reply to this message. Follow-up communication and further actions as a result of this message need to be communicated with the patient directly, if the patient is not active onMyChart. If the patient is active on MyChart, they will receive notification of the communication/outcome via [employer]. documented in this encounter Plan of Treatment Upcoming Encounters Date Type Department Care Team (Late st Contact Info) Description 02/26/2025 3:45 PM EDT Office Visit [facility] [address], 3rd [place] [address] [place]Juan Francisco MD [address] [place] [address] 03/03/2025 10:30 AM EDT Office Visit [facility] [address] [place] [address] Abby Fox [address] [place] [address] 03/12/2025 12:30 PM EDT Consult [facility] [address], 1st [place] [address] Thierry Walton DO [address] [place] [address] 03/27/2025 9:00 AM EDT Office Visit Medical Office Building Obstetrics and Gynecology [address] [facility], [address] [place] [address] Nandini Segura APRN [address] [facility] [address] [place] [address] 08/08/2025 9:00 AM EST Office Visit [facility] Room [address] [place] [address] Jenny Prieto, DDS [address] [facility] [address] [place] [address] documented as of this encounter [...] documented as of this encounter Care Teams Art Studio Teacher Relationship Specialty Start Date End Date Beata Dixon APRN [address] [place] [address] PCP - General Family Medicine 10/10/24 documented as of this encounter
--- OUTSIDE RECORDS SUMMARY | 2025-02-24 12:48 | XMS_ITS | Encounter Summary ---
Author Organization Healthcare Address [address] [place] [address] Care Team Providers Care Carton Folder Name Role Phone Zack Beata Gilberto BROWN Primary Care Provider [phone] Reason for Visit * Reason Onset Date Comments HCN Clinical Concern/Question 02/13/2025 Encounter Details Date Type Department Care Team (Late st Contact Info) Description 02/13/2025 [facility]phone [facility] [address], 3rd [place] [address] Jony Berman MD [address] [place] [address] HCN Clinical Concern/Question Social History Tobacco Use Types Packs/Day Years [...] any time in the past 12 m [facility], were you homeless or living in a [...] encounter Miscellaneous Notes * Telephone Encounter - Gaston Campos - 02/13/2025 1:50 PM EDT Clinical Concern/Question Reason for Call: She was seen today. She is asking for a 2nd opinion and asking to get an appt thisweek. She is having trouble breathing. She wants to keep Dr. Berman as a doctor but just wants a 2ndopinion from another doctor. Best contact number: [phone] (mobile) Optimal time of day to reach caller: ANYTIME Additional comments/information from caller: None Note: Please do not reply to this message. Follow-up communication and further actions as a result of this message need to be communicated with the patient directly, if the patient is not active onMyChart. If the patient is active on MyChart, they will receive notification of the communication/outcome via MyChart. documented in this encounter Plan of Treatment Upcoming Encounters Date Type Department Care Team (Late st Contact Info) Description 02/26/2025 3:45 PM EDT Office Visit [facility] Ot[facility] [address], 3rd [place] [address] Juan Francisco Duarte MD [address] [facility] [address] [place] [address] 03/03/2025 10:30 AM EDT Office Visit [facility] [address] [place] [address] Abby Fox [address] [place], [place] [id number] 03/12/2025 12:30 PM EDT [facility] [address], 1st [place] [address] Thierry Walton DO [address] [place] [address] 03/27/2025 9:00 AM EDT Office Visit Medical Office Building Obstetrics and Gynecology [address] [facility], [address] [place] [address] Nandini Segura APRN [address] [facility] [address] [place] [address] 08/08/2025 9:00 AM EST [facility] Room E214 [address] [place] [address] Jenny Prieto DDS [address] [facility] [address] [place] [address] documented as of this encounter [...] documented as of this encounter Care Teams Carton Folder Relationship Specialty Start Date End Date Beata Dixon APRN [address] [place] [address] PCP - General Family Medicine 10/10/24 documented as of this encounter
--- OUTSIDE RECORDS SUMMARY | 2025-02-24 12:48 | XMS_ITS | Encounter Summary ---
Author Organization [facility] Address [address] [place] [address] Care Team Providers Care Mason Liner Name Role Phone Beata Dixon APRN Primary Care Provider [phone] Encounter Details Date Type Department Care Team (Late st Contact Info) Description 11/20/2024 Results Follow-Up [facility] [address] [place] [address] Beata Dixon APRN [address] [place] [address] Social History Tobacco Use Types [...] Description 02/26/2025 3:45 PM EDT Office Visit [facility] [address], 3rd [place] [address] Juan Francisco Duarte MD [address] [facility] [address] [place] [address] 03/03/2025 10:30 AM EDT Office Visit [facility] [address] [place] [address] Abby Fox [address] [place] [address] 03/12/2025 12:30 PM EDT Consult [facility] [address], 1st [place] [address] Thierry Walton DO [address] [facility] [address] [place] [address] 03/27/2025 9:00 AM EDT Office Visit Medical Office Building Obstetrics and Gynecology [address] [facility], [address] [place] [address] Nandini Segura, SENIOR NETWORK SYSTEMS ENGINEER [address] [facility] [address] [place] [address] 08/08/2025 9:00 AM EST Office Visit [facility] Clinic [facility] Room E214 [address] [place] [address] Jenny Prieto DDS [address] [facility] [address] [place] [address] documented as of this encounter Visit Diagnoses Not on filedocumented in this encounter Additional Health Concerns Infection Onset Date Last Indicated Resolved Time MRSA 03/18/2024 03/18/2024 Assessment Noted Time PHQ-9 Depression Total Score: 0 05/09/20 25 11:09 AM EDT A fall risk assessment has been complete d for the patient 10/18/2024 11:09 AM EDT A Body Mass Index follow-up plan has been documented for the patient 11/13/2024 3:58 PM EDT documented as of this encounter Care Teams Mason Liner Relationship Specialty Start Date End Date Beata Dixon APRN [address] [place] [address] PCP - General Family Medicine 10/10/24 documented as of this encounter
--- OUTSIDE RECORDS SUMMARY | 2025-02-24 12:48 | XMS_ITS | Encounter Summary ---
Author Organization Healthcare Address [address] [place] [address] Care Team Providers Care Research Study Assistant Name Role Phone Zack Beata Macias APRN Primary Care Provider Encounter Details Date Type Department Care Team (Latest Contact Info) Description 01/15/2025 Travel Social History Tobacco Use Types Packs/Day [...] in the past [address] [facility], were you homeless or living in a correction (including now)? No 11/13/2024 Safety and Environment [...] Description 02/26/2025 3:45 PM EDT Office Visit [facility] [address], 3rd [place] [address] [place], Juan Francisco Mcwilliams MD [address] [place] [address] 03/03/2025 10:30 AM EDT Office Visit [facility] [address] [place] [address] Fox Abby Martinez [address] [place] [address] 03/12/2025 12:30 PM EDT Consult [facility] [address], 1[address] [place] [address] Thierry Walton, DO [address] [place] [address] 03/27/2025 9:00 AM EDT Office Visit Medical Office Building Obstetrics and Gynecology [address] [facility], [address] [place] [address] Nandini Segura APRN [address] [facility] [address] [place] [address] 08/08/2025 9:00 AM EST Office Visit [facility] [address] [place] [address] Jenny Prieto, DDS [address] [facility] [address] [place] [address] documented as of this encounter [...] documented as of this encounter Care Teams Research Study Assistant Relationship Specialty Start Date End Date Beata Dixon APRN [address] [place] [address] PCP - General Family Medicine 10/10/24 documented as of this encounter
--- OUTSIDE RECORDS SUMMARY | 2025-02-24 12:48 | XMS_ITS | Encounter Summary ---
Author Organization Healthcare Address [address] [place] [address] Care Team Providers Care Time Study Analyst Name Role Phone Beata Dixon APRN Primary Care Provider Encounter Details Date Type Department Care Team (Late st Contact Info) Description 12/01/2024 Outside Procedure External Location [address] [place] [address] Provider, Sand[place] Social History Tobacco Use Types Packs/Day Years [...] any time in the past 12 m [facility], were you homeless or living in a [facility] (including now)? No 11/13/2024 Safety and Environment [...] [address], 3rd [place] [address] [place], Juan Francisco Mcwilliams MD [address] [place] [address] 03/03/2025 10:30 AM EDT Office Visit [facility] [address] [place] [address] Ruddy Abby Martinez [address] [place], [place] [id number] 03/12/2025 12:30 PM EDT Consult [place] [facility] [address], 1st [place] [address] Thierry Walton DO [address] [facility] [address] [place] [address] 03/27/2025 9:00 AM EDT Office Visit Medical Office Building Obstetrics and Gynecology [address] [facility], [address] [place] [address] Nandini Segura, STEPHANIE [address] [facility] [address] [place] [address] 08/08/2025 9:00 AM EST Office Visit [facility]facial Pain Clinic [facility] Room E[address] [place] [address] Jenny Prieto, R[place] [address] [facility] [address] [place] [address] documented as of this encounter Procedures Procedure Name Priority Date/Time Associated Diagnosis Comments CT FACE W IV CONTRAST 12/01/2024 8:06 PM EDT documented in this encounter Results * CT Face w IV Contrast (12/01/2024 8:06 PM EDT) Anatomical Region Laterality Modality Facial bones Computed Tomogra phy 12/01/2024 8:06 PM EDT Narrative 12/01/2024 9:15 PM EDT [place] [id number] Name: JAYLYN CARNES Exam Date: 12/01/2024 : 1990 Age 34 years Gender: F Physician: TALAT CHAVEZ Facility: [facility] Facility HSV: Outpatient Exam: CT FACIAL BONES [...] Thank you for referring JAYLYN CARNES to [facility]. Legally authenticated by STEFFEN CHAVEZ 2024-12-01 21:13:38 Procedure Note Provider, Generic [place] - 12/01/2024 [place] [address] [place] [address] Name: JAYLYN CARNES Exam Date: 12/01/2024 : 1990 Age 34 years Gender: F Physician: TALAT CHAVEZ Facility: [facility] Facility HSV: Outpatient Exam: CT FACIAL BONES [...] [facility]. Legally authenticated by STEFFEN CHAVEZ 2024-12-01 21:13:38 Generic [place] Provider IMG CT PROCEDURES Fi nal Result [...] documented as of this encounter Care Teams Time Study Analyst Relationship Specialty Start Date End Date Beata Dixon, STEPHANIE [address] [place] [address] PCP - General Family Medicine 10/10/24 documented as of this encounter
--- OUTSIDE RECORDS SUMMARY | 2025-02-24 12:48 | XMS_ITS | Encounter Summary ---
Author Organization Healthcare Address [address] [place] [address] Care Team Providers Care Rn Lab Name Role Phone Ricardo Dixon APRN Primary Care Provider [phone] Bessie Meade DO Primary Care Provider [phone] Ricardo Dixon APRN Primary Care Provider [phone] Encounter Details Date Type Department Care Team (Late st Contact Info) Description 10/31/2023 Outside Procedure External Location [address] [place] [address] Ricardo Dixon APRN [address] [place] [address] Social History Tobacco Use Types [...] slept in a detention (including now)? No 10/24/2023 Utilities Answer Date [...] Description 02/26/2025 3:45 PM EDT Office Visit [place] [facility] Otol[facility]ology [address], [address]rd [place] [address] Ranier, Juan Francisco Mcwilliams MD [address] [place] [address] 03/03/2025 10:30 AM EDT Office Visit [facility] [address] [place] [address] Fox Abby Juan [address] [place] [address] 03/12/2025 12:30 PM EDT Consult [place] [facility] [address], 1st [place] [address] Thierry Walton DO [address] [place] [address] 03/27/2025 9:00 AM EDT Office Visit Medical Office Building Obstetrics and Gynecology [address] [facility], [address] [place] [address] Nandini Segura, DISPLAY ASSOCIATE [address] [facility] [address] [place] [address] 08/08/2025 9:00 AM EST Office Visit [facility] Room E214 [address] [place] [address] Jenny Prieto, DDS [address] [place] [address] documented as of this encounter Procedures Procedure Name Priority Date/Time Associated Diagnosis Comments MR ABDOMEN WO IV CONTRAST 10/31/2023 8:24 AM EDT documented in this encounter Results * MR Abdomen wo IV Contrast (10/31/2023 8:24 AM EDT) Anatomical Region Laterality Modality Abdomen Magnetic Resonan ce 10/31/2023 8:24 AM EDT Narrative 10/31/2023 3:44 PM EDT [facility] [address] [place] [address] Name: JAYLYN CARNES Exam Date: 10/31/2023 : 1990 Age 33 years Gender: F Physician: RICARDO DIXON Facility: [facility] Facility HSV: Outpatient Exam: MRI ABD W/O FINAL REPORT CLINICAL HISTORY: Abdominal distension, weight loss since July 2023 Gallbladder surgery 2C-section 9 years ago COMPARISON: None FINDINGS: Multiplanar MR imaging of the abdomen was performed without contrast.There is some degradation of image quality secondary to motion artifact.Images of the liver reveal no evidence of mass. There is no evidence of biliary ductal dilatation.The gallbladder has been surgically resected.There is a multilobular cystic structure in the left renal pelvis, that may represent marked hydronephrosis of the kidney likely secondary to chronic UPJ obstruction.The left ureter is not dilated. The right kidney is unremarkable in appearance. IMPRESSION: Multilobular cystic structure in the left renal pelvis, may represent marked hydronephrosis of the kidney likely secondary to chronic UPJ obstruction as the left ureter is not dilated. The right kidney is unremarkable in appearance.The gallbladder has been surgically resected. Reviewed, Interpreted and Dictated by Jose Roberto Yi MD Transcribed by Dilia Dempsey Authenticated and EASTERN Dictated By: JOSE ROBERTO YI Transcribed By: Transcribed On: 10/31/2023 3:31 PM Electronically signed by: JOSE ROBERTO YI 10/31/2023 Thank you for referring JAYLYN CARNES to [facility]. Legally authenticated by ARMAND Mondragon 2023-10-31 15:31:28 Procedure Note Provider, Generic [place] - 10/31/[address] [address] Name: JAYLYN CARNES Exam Date: 10/31/2023 : 1990 Age 33 years Gender: F Physician: RICARDO DIXON Facility: [facility] Facility HSV: Outpatient Exam: MRI ABD W/O FINAL REPORT CLINICAL HISTORY: Abdominal distension, weight loss since July 2023 Gallbladder surgery 2C-section 9 years ago COMPARISON: None FINDINGS: Multiplanar MR imaging of the abdomen was performed without contrast.There is some degradation of image quality secondary to motion artifact.Images of the liver reveal no evidence of mass. There is no evidence of biliary ductal dilatation.The gallbladder has been surgically resected.There is a multilobular cystic structure in the left renal pelvis, that may represent marked hydronephrosis of the kidney likely secondary to chronic UPJ obstruction.The left ureter is not dilated. The right kidney is unremarkable in appearance. IMPRESSION: Multilobular cystic structure in the left renal pelvis, may represent marked hydronephrosis of the kidney likely secondary to chronic UPJ obstruction as the left ureter is not dilated. The right kidney is unremarkable in appearance.The gallbladder has been surgically resected. Reviewed, Interpreted and Dictated by Jose Roberto Yi MD Transcribed by Dilia Dempsey Authenticated and EASTERN Dictated By: JOSE ROBERTO YI Transcribed By: Transcribed On: 10/31/2023 3:31 PM Electronically signed by: JOSE ROBERTO YI 10/31/2023 Thank you for referring JAYLYN CARNES to [facility]. Legally authenticated by ARMAND Mondragon 2023-10-31 15:31:28 Ricardo Dixon APRN IMG MRI PROCEDURES Final Result documented in this encounter [...] documented as of this encounter Care Teams Rn Lab Relationship Specialty Start Date End Date Ricardo Dixon APRN [address] [place] [address], [place] [address] PCP - General Family Medicine 10/03/23 06/24/24 Bessie Meade DO [address] [place] [address] PCP - General 06/25/24 10/09/24 Ricardo Dixon APRN [address] [place] [address] PCP - General Family Medicine 10/10/24 documented as of this encounter
--- OUTSIDE RECORDS SUMMARY | 2025-02-24 12:48 | XMS_ITS | Encounter Summary ---
Author Organization [facility] Address [address] [place], [place] [address] Care Team Providers Care Fleet Service Clerk Name Role Phone Beata Dixon APRN Primary Care Provider [phone] Reason for Referral * Consultation (Routine) - Authorized Specialty Diagnoses / Procedures Referred By Jacobo marte Referred To Contact Ophthalmology Diagnoses Health maintenance [place] [address] Phone: tel: fax: Referral ID Status Reason Start Date Expiration Date Visits Requested Visits Authorized [id number] Authorized Specialty Services Required 02/13/2025 08/15/2026 1 1 Scheduling Instructions Pt would like to stay in [facility] Encounter Details Date Type Department Care Team (Late st Contact Info) Description 02/13/2025 Orders Only [facility] [address] [place] [address] Beata Dixon APRN [address] [place] [address] Health maintenance examination (Primary Dx) Social History Tobacco Use Types [...] [facility] the [facility] or living in [...] Description 02/26/2025 3:45 PM EDT Office Visit [facility] Otolaryngology [address], [address] [place] [address] Juan Francisco Duarte MD [address] [facility] [address] [place] [address] 03/03/2025 10:30 AM EDT Office Visit [facility] [address] [place] [address] Abby Fox [address] [place] [address] 03/12/2025 12:30 PM EDT Consult [facility] [address], 1st [place] [address] Thierry Walton DO [address] [facility] [address] [place] [address] 03/27/2025 9:00 AM EDT Office Visit Medical Office Building Obstetrics and Gynecology [address] [facility], [address] [place] [address] Nandini Segura, EQUIPMENT OILER [address] [facility] [address] [place] [address] 08/08/2025 9:00 AM EST Office Visit [place] [facility] Room E214 [address] [place] [address] Jenny Prieto, DDS [address] [place] [address] Scheduled Referrals Name Type Priority Associated Diagnoses Order Schedule Ambulatory referral to Ophthalmology Outpatient Referral Routine Health maintenance examination Expected: 02/13/2025 (Approximate), Expires: 08/17/2026 documented as of this encounter Visit Diagnoses Diagnosis Health maintenance examination- Primary Unspecified general medical examination documented in this encounter Additional Health Concerns [...] documented as of this encounter Care Teams Fleet Service Clerk Relationship Specialty Start Date End Date Beata Dixon APRN [address] [place] [address] PCP - General Family Medicine 10/10/24 documented as of this encounter
--- OUTSIDE RECORDS SUMMARY | 2025-02-24 12:48 | XMS_ITS | Encounter Summary ---
Author Organization Healthcare Address [address] [place] [address] Care Team Providers Care Optometric Technician Name Role Phone Beata Dixon APRN Primary Care Provider [phone] Pcp, Dorita Primary Care Provider UnavailBeata Lquue APRN Primary Care Provider [phone] Bessie Meade DO Primary Care Provider [phone] Beata Dixon APRN Primary Care Provider [phone] Encounter Details Date Type Department Care Team (Late st Contact Info) Description 09/16/2023 Orders Only External Location [address] [place] [id number] Provider, External Social History Tobacco Use Types [...] Description 02/26/2025 3:45 PM EDT [facility] [address], 3rd [place] [address] Juan Francisco Duarte MD [address] [facility] [address] [place] [address] 03/03/2025 10:30 AM EDT Office Visit [facility] [address] [place] [address] Ruddy Abby E [address] [place] [address] 03/12/2025 12:30 PM EDT [facility] [address], 1st [place] [address] Thierry Walton DO [address] [facility] [address] [place] [address] 03/27/2025 9:00 AM EDT Office Visit Medical Office Building Obstetrics and Gynecology [address] [facility], [address] [place] [address] Nandini Segura, CARRY OUT CLERK [address] [facility] [address] [place] [address] 08/08/2025 9:00 AM EST Office Visit [facility] Room E214 [address] [place] [address] Jenny Prieto, DDS [address] [facility] [address] [place] [address] documented as of this encounter Procedures Procedure Name Priority Date/Time Associated Diagnosis Comments CT MSK OUTSIDE IMAGES 09/16/2023 3:43 PM EDT documented in this encounter Results * CT MSK OUTSIDE IMAGES (09/16/2023 3:43 PM EDT) Anatomical Region Laterality Modality Computed Tomogra phy 09/16/2023 3:43 PM EDT us External Provider IMG CT [...] documented as of this encounter Care Teams Optometric Technician Relationship Specialty Start Date End Date Beata Dixon APRN [address] [place] [address] PCP - General Family Medicine 09/08/23 09/24/[address] [place] [address] PCP - General Family Medicine 09/28/23 10/02/23 Beata Dixon APRN [address] [place] [address] PCP - General Family Medicine 10/03/23 06/24/24 Bessie Meade DO [address] [place] [address] PCP - General 06/25/24 10/09/24 Beata Dixon APRN [address] [place] [address] PCP - General Family Medicine 10/10/24 documented as of this encounter
--- OUTSIDE RECORDS SUMMARY | 2025-02-24 12:48 | XMS_ITS | Encounter Summary ---
Author Organization [facility] Address [address] [place] [address] Care Team Providers Care Associate Professor Plant Pathology Name Role Phone Beata Dixon APRN Primary Care Provider [phone] Reason for Visit * Reason Onset Date Comments HCN - Patient Message 02/13/2025 Encounter Details Date Type Department Care Team (Late st Contact Info) Description 02/13/2025 Telephone [facility] [address] [place] [address] Abby Fox [address] [place], [place] [id number] HCN - Patient Message Social History Tobacco Use Types Packs/Day Years [...] were you homeless or living in a alf (including now)? No 11/13/2024 Safety and Environment [...] encounter Miscellaneous Notes * Telephone Encounter - Urmila Ellsworth - 02/14/2025 8:18 AM EDT Status Update Call #1 1st call regarding the status of the initial request. Best contact number: [phone] (home) Optimal time of day to reach [...] receive notification of the communication/outcome via MyChart. * Telephone Encounter - Tootie Zamarripa - 02/13/2025 4:02 PM EDT Same Day Appt/Overbook Request Reason for Call: Patient missed her appointment today and needs to r/s Best contact number: [phone] Optimal time of day to reach caller: ANYTIME Additional comments/information from caller: Note: Please do not reply to this message. Follow-up communication and further actions as a result of this message need to be communicated with the patient directly, if the patient is not active onMyChart. If the patient is active on MyChart, they will receive notification of the communication/outcome via [employer] documented in this encounter Plan of Treatment Upcoming Encounters Date Type Department Care Team (Late st Contact Info) Description 02/26/2025 3:45 PM EDT Office Visit [facility] Otolaryngology [address], 3rd [place] [address] Apple SpringsJuan Francisco MD [address] [place] [address] 03/03/2025 10:30 AM EDT Office Visit [facility] [address] [place] [address] Ruddy Abby Juan [address] [place] [address] 03/12/2025 12:30 PM EDT Consult [facility] [address], 1st [place] [address] Thierry Walton DO [address] [place] [address] 03/27/2025 9:00 AM EDT Office Visit Medical Office Building Obstetrics and Gynecology [address] [facility], [address] [place] [address] Nandini Segura APRN [address] [facility] [address] [place] [address] 08/08/2025 9:00 AM EST Office Visit [facility] Room E214 [address] [place] [address] Jenny Prieto, DDS [address] [facility] [address] [place] [address] documented as of this encounter [...] documented as of this encounter Care Teams Associate Professor Plant Pathology Relationship Specialty Start Date End Date Beata Dixon APRN [address] [place] [address] PCP - General Family Medicine 10/10/24 documented as of this encounter
--- OUTSIDE RECORDS SUMMARY | 2025-02-24 12:48 | XMS_ITS | Encounter Summary ---
Author Organization [facility] Address [address] [place] [address] Care Team Providers Care Javascript Ui Developer Name Role Phone Beata Dixon APRN Primary Care Provider [phone] Encounter Details Date Type Department Care Team (Late st Contact Info) Description 02/07/2025 Orders Only [facility] [address] [place] [address] Beata Dixon APRN [address] [place] [address] Facial twitching (Primary Dx) Social History Tobacco Use Types [...] any time in the past 12 m [facility], were you homeless or living in a fdc (including now)? No 11/13/2024 Safety and Environment [...] Visit [facility] Otolaryngology [address], 3rd [place] [address] Juan Francisco Duarte MD [address] [facility] [address] [place] [address] 03/03/2025 10:30 AM EDT Office Visit [facility] [address] [place] [address] Ruddy Abby E [address] [place] [address] 03/12/2025 12:30 PM EDT Consult [facility] [address], [address] [place] [address] Thierry Walton DO [address] [facility] [address] [place] [address] 03/27/2025 9:00 AM EDT Office Visit Medical Office Building Obstetrics and Gynecology [address] [facility], [address] [place] [address] Nandini Segura, STEPHANIE [address] [facility] [address] [place] [address] 08/08/2025 9:00 AM EST Office Visit [facility] Room E214 [address] [place] [address] Jenny Prieto, DDGalen [address] [facility] [address] [place] [address] documented as of this encounter Visit Diagnoses Diagnosis Facial twitching- Primary Other facial nerve disorders documented in this encounter Additional Health Concerns [...] documented as of this encounter Care Teams Javascript Ui Developer Relationship Specialty Start Date End Date Beata Dixon APRN [address] [place] [address] PCP - General Family Medicine 10/10/24 documented as of this encounter
--- OUTSIDE RECORDS SUMMARY | 2025-02-24 12:48 | XMS_ITS | Encounter Summary ---
Author Organization Healthcare Address [address] [place] [address] Care Team Providers Care Banking Specialist Name Role Phone Zack Beata Macias APRN Primary Care Provider Encounter Details Date Type Department Care Team (Latest Contact Info) Description 02/19/2025 Travel Social History Tobacco Use Types Packs/Day [...] any time in the past 12 m [facility], were you homeless or living in a mcfp (including now)? No 11/13/2024 Safety and Environment [...] things Not at all 02/19/2025 1:07 PM Anjel Dhillon Feeling down, depressed, or hopeless Not at all 02/19/2025 1:07 PM HUGHT Anjel Dey R Patient Health Questionnaire-2 Score 0 02/19/2025 1:07 PM Thuy Dhillon * Question Answer Date of Assessment Author Trouble falling or staying asleep, or sleeping too much Not at all 02/19/2025 1:07 PM Silvino Bateman Feeling tired or having little energy Not at all 02/19/2025 1:07 PM Anjel Dhillon R Poor appetite or overeating Not at all [...] (Past 1 Month) No 02/19/2025 1:07 PM EDT Jose Dey 6. Suicidal Behavior (Lifetime) No 1:07 PM EDT Silvino Dey documented as of this encounter Plan of Treatment Upcoming Encounters Date Type Department Care Team (Late st Contact Info) Description 02/26/2025 3:45 PM EDT Office Visit [facility] Otolaryngology [address], 3rd [place] [address] Juan Francisco Duarte MD [address] [place] [address] 03/03/2025 10:30 AM EDT Office Visit [facility] [address] [place] [address] Abby Fox [address] [place] [address] 03/12/2025 12:30 PM EDT Consult [facility] [address], 1[address] [place] [address] Thierry Walton DO [address] [place] [address] 03/27/2025 9:00 AM EDT Office Visit Medical Office Building Obstetrics and Gynecology [address] [facility], [address] [place] [address] Nandini Segura, LAWN AND TREE SERVICE SPRAY SUPERVISOR [address] [facility] [address] [place] [address] 08/08/2025 9:00 AM EST Office Visit [facility] Room E214 [address] [place] [address] Jenny Prieto DDS [address] [place] [address] documented as of this encounter Visit Diagnoses [...] documented as of this encounter Care Teams Banking Specialist Relationship Specialty Start Date End Date Beata Dixon APRN [address] [place] [id number] PCP - General Family Medicine 10/10/24 documented as of this encounter
--- OUTSIDE RECORDS SUMMARY | 2025-02-24 12:48 | XMS_ITS | Encounter Summary ---
Author Organization [facility] Address [address] [place] [address] Care Team Providers Care Contract Lead Name Role Phone Beata Dixon APRN Primary Care Provider [phone] Encounter Details Date Type Department Care Team (Late st Contact Info) Description 12/31/2024 Orders Only [facility] [address] [place] [address] Beata Dixon APRN [address] [place] [address] Facial rash (Primary Dx) Social History Tobacco Use Types [...] any time in the past 12 m [facility], were you homeless or living in a long term (including now)? No 11/13/2024 Safety and Environment [...] the past 12 months has th e [employer], gas, oil, or water company threatened to [...] Description 02/26/2025 3:45 PM EDT Office Visit [facility] Otolaryngology [address], 3rd [place] [address] Juan Francisco Duarte MD [address] [facility] [address] [place] [address] 03/03/2025 10:30 AM EDT Office Visit [facility] [address] [place] [address] Ruddy Abby E [address] [place] [address] 03/12/2025 12:30 PM EDT Consult [facility] [address], [address]st [place] [address] Thierry Walton DO [address] [facility] [address] [place] [address] 03/27/2025 9:00 AM EDT Office Visit Medical Office Building Obstetrics and Gynecology [address] [facility], [address] [place] [address] Nandini Segura, COPRA SAMPLER [address] [facility] [address] [place] [address] 08/08/2025 9:00 AM EST Office Visit [facility] Room E214 [address] [place] [address] Jenny Prieto, DDS [address] [facility] [address] [place] [address] documented as of this encounter Visit Diagnoses Diagnosis Facial rash- Primary documented in this encounter Additional Health Concerns Infection Onset Date Last Indicated Resolved Time MRSA 03/18/2024 03/18/2024 Assessment Noted Time PHQ-9 Depression Total Score: 0 10/19/19 11:09 AM EDT A fall risk assessment has been complete d for the patient 10/18/2024 11:09 AM EDT A Body Mass Index follow-up plan has been documented for the patient 12/06/2024 2:50 PM EDT documented as of this encounter Care Teams Contract Lead Relationship Specialty Start Date End Date Beata Dixon APRN [address] [place] [address] PCP - General Family Medicine 10/10/24 documented as of this encounter
--- OUTSIDE RECORDS SUMMARY | 2025-02-24 12:48 | XMS_ITS | Encounter Summary ---
Author Organization Healthcare Address [address] [place] [address] Care Team Providers Care Grab Jack Worker Name Role Phone ZackBeata Gilberto BROWN Primary Care Provider [phone] Encounter Details Date Type Department Care Team (Late st Contact Info) Description 02/05/2025 Telephone [facility] Otol[facility]ology [address], 3rd [place] [address] Francie Cabrales Social History Tobacco [...] any time in the past 12 m [facility], were you homeless or living [...] Telephone Encounter - Francie Cabrales Samantha - 02/05/2025 11:02 AM EDT Called patient for clarification of her message before reaching out to Dr. Berman. Left a voice message and my direct line phone number requesting a call back. documented in this encounter Plan of Treatment Upcoming Encounters Date Type Department Care Team ([facility] st Contact Info) Description 02/26/2025 3:45 PM EDT Office Visit [facility] Otolaryngology [address], 3rd [place] [address] Juan Francisco Duarte MD [address] [facility] [address] [place] [address] 03/03/2025 10:30 AM EDT Office Visit [facility] Eye Care [address] [place] [address] Abby Fox [address] [place] [address] 03/12/2025 12:[address] [facility] [address], [address]st [place] [address] Thierry Walton DO [address] [facility] [address] [place] [address] 03/27/2025 9:00 AM EDT Office Visit Medical Office Building Obstetrics and Gynecology [address] [facility], [address] [place] [address] Nandini Segura, RN PAIN MANAGEMENT [address] [facility] [address] [place] [address] 08/08/2025 9:00 AM EST [facility] Room [address]214 [address] [place] [address] Jneny Prieto DDS [address] [facility] [address] [place] [address] documented as of this encounter [...] documented as of this encounter Care Teams Grab Jack Worker Relationship Specialty Start Date End Date Beata Dixon APRN [address] [place] [address] PCP - General Family Medicine 10/10/24 documented as of this encounter
--- OUTSIDE RECORDS SUMMARY | 2025-02-24 12:48 | XMS_ITS | Encounter Summary ---
Author Organization Healthcare Address [address] [place] [address] Care Team Providers Care Sales Support Associate Name Role Phone Beata Dixon APRN Primary Care Provider [phone] Encounter Details Date Type Department Care Team (Late st Contact Info) Description 01/23/2025 Telephone [facility] [address] [place] [address] Abby Fox [address] [place] [address] Social History Tobacco Use Types Packs/Day Years [...] any time in the past 12 m [facility], were you homeless or living in a half-way (including now)? No 11/13/2024 Safety and Environment [...] the past 12 months has th e [employer], gas, oil, or water [employer] threatened to shut off services in your [...] hopeless Not at all 02/19/2025 1:07 PM Anjel Dhillon Patient Health Questionnaire-2 Score 0 02/19/2025 1:07 PM HUGHT Thuy Dey R * Question Answer Date of Assessment Author [...] Not difficult at all 02/19/2025 1:07 PM EDT Carlton Dey * Question Answer Date of Assessment Author 1. Wish to be (Past 1 Month) No 025 1:07 PM EDT Silvino Dey 2. Non-Specific Active Suici rosalee Thoughts (Past 1 Month) No 02/19/2025 1:07 PM EDT Jose Dey 6. Suicidal Behavior (Lifetime) No 1:07 PM EDT Silvino Dey documented as of this encounter Miscellaneous Notes * Telephone Encounter - Debbie Bhakta - 01/23/2025 3:14 PM EDT Clinical Concern/Question Reason for Call: Patient was seen today and asking if provider can look over he CT scan Best contact number: [phone] (home) Optimal time of day to reach caller: ANYTIME Additional comments/information from caller: None Note: Please do not reply to this message. Follow-up communication and further actions as a result of this message need to be communicated with the patient directly, if the patient is not active onMyChart. If the patient is active on MyChart, they will receive notification of the communication/outcome via Hiddenbedhart. documented in this encounter Plan of Treatment Upcoming Encounters Date Type Department Care Team (Late st Contact Info) Description 02/26/2025 3:45 PM EDT Office Visit [facility] Ot[facility]ology [address], 3rd [place] [address] BoltonJuan Francisco MD [address] [place] [address] 03/03/2025 10:30 AM EDT Office Visit [facility] Eye Care [address] [place] [phone] Abby Fox [address] [place] [address] 03/12/2025 12:30 PM EDT Consult [place] [facility] [address], 1[address] [place] [address] Thierry Walton DO [address] [place] [address] 03/27/2025 9:00 AM EDT Office Visit Medical Office Building Obstetrics and Gynecology [address] [facility], [address] [place] [address] Nandini Segura APRN [address] [facility] [address] [place] [address] 08/08/2025 9:00 AM EST Office Visit [facility] Room [address] [place] [address] Jenny Prieto, DDS [address] [facility] [address] [place] [address] documented as of this encounter [...] documented as of this encounter Care Teams Sales Support Associate Relationship Specialty Start Date End Date Beata Dixon APRN [address] [place] [phone] PCP - General Family Medicine 10/10/24 documented as of this encounter
--- OUTSIDE RECORDS SUMMARY | 2025-02-24 12:48 | XMS_ITS | Encounter Summary ---
Author Organization Healthcare Address [address] [place] [address] Care Team Providers Care Sleeve Tailor Name Role Phone Beata Dixon APRN Primary Care Provider Encounter Details Date Type Department Care Team (Late st Contact Info) Description 01/13/2025 Orders Only External Location [address] [place] [address] Provider, Sandip [place] Social History Tobacco Use Types Packs/Day Years [...] Description 02/26/2025 3:45 PM EDT Office Visit [facility] [address], 3rd [place] [address] Lorenzo, Juan Francisco Mcwilliams MD [address] [place] [address] 03/03/2025 10:30 AM EDT Office Visit [facility] Eye Care [address] [place] [address] Abby Fox [address] [place] [address] 03/12/2025 12:30 PM EDT Consult [place] [facility] [address], 1st [place] [address] Thierry Walton, [address] [facility] [address] [place] [address] 03/27/2025 9:00 AM EDT Office Visit Medical Office Building Obstetrics and Gynecology [address] [facility], [address] [place] [address] Nandini Segura, STEPHANIE [address] [facility] [address] [place] [address] 08/08/2025 9:00 AM EST Office Visit [facility]facial Pain Clinic [facility] Room [address]214 [address] [place] [address] Jenny Prieto, DDS [address] [facility] [address] [place] [address] documented as of this encounter Procedures Procedure Name Priority Date/Time Associated Diagnosis Comments ANTINUCLEAR ANTIBODIES, IFA (EXTERNAL) Routine 01/13/2025 5:56 PM EDT MISCELLANEOUS LAB TEST (SO) Routine 01/13/2025 5:56 PM EDT SCLERODERMA (SCL-70) (NIRAJ) ANTIBODY, IGG (SO) Routine 01/13/2025 5:56 PM EDT SEDIMENTATION RATE, AUTOMATED Routine 01/13/2025 5:56 PM EDT CBC W/O DIFFERENTIAL Routine 01/13/2025 5:56 PM EDT CBC WITH AUTO DIFFERENTIAL Routine 01/13/2025 5:56 PM EDT ANTISTREPTOLYSIN O SCREEN (SO) Routine 01/13/2025 5:56 PM EDT RHEUMATOID FACTOR, PLASMA Routine 01/13/2025 5:56 PM EDT C-REACTIVE PROTEIN, PLASMA Routine 01/13/2025 5:56 PM EDT TSH Routine 01/13/2025 5:56 PM EDT FREE T4, PLASMA Routine 01/13/2025 5:56 PM EDT COMPREHENSIVE METABOLIC PANEL, PLASMA Routine 01/13/2025 5:56 PM EDT documented in this encounter Results * - Miscellaneous Test (01/13/2025 5:56 PM EDT) Pathologist [facility] External Misc Lab Test SEE REPORT [facility] Comment: [place] [address] Dir: Mario Guo, PhD Contact by: [phone] 01/13/2025 5:56 PM EDT 01/13/2025 5:56 PM EDT us Generic [place] Provider LAB REF LAB BLOOD AN D FLUID ORD Final Result [facility] * Antinuclear Antibodies, IFA (External) (01/13/2025 5:56 PM EDT) Pathologist [facility] External Antinuclear Antibody (JEANNETTE) Negative [facility] Comment: Negative <1:80 Borderline 1:80 Positive >1:80 ICAP nomenclature: AC-0 For more information about Hep-2 cell patterns use ANApatterns.org, the official website for the International Consensus on Antinuclear Antibody (JEANNETTE) Patterns (ICAP). Performed at: [facility] [address] [id number] [place]: Mario Guo PhD, Phone: [phone] 01/13/2025 5:56 PM EDT 01/13/2025 5:56 PM EDT Generic [place] Provider LAB BLOOD ORDERABLES Final Result Performing Organization Address [facility]/ZIP Co de Phone Number [facility] * Anti-scleroderma antibody (01/13/2025 5:56 PM EDT) External SCL 70 (Scleroderma Ab) <0.2 0.0 - 0.9 AI [facility] Comment: Performed at: - [facility] [address] [id number] [place]: Mario Guo PhD, Phone: [phone] 01/13/2025 5:56 PM EDT 01/13/2025 5:56 PM EDT Generic [place] Provider LAB BLOOD ORDERABLES Final Result Performing Organization Address City/[facility]/ZIP Co de Phone Number [facility] * (ABNORMAL) CBC and Differential (01/13/2025 5:56 PM EDT) External WBC 7.6 4.0 - 10.5 K/ul [facility] External Red Blood Cell (RBC) 4.7 4.2 - 6.4 M/mm3 [facility] External Hemoglobin 14.3 12.5 - 16.0 gm/dl [facility] External Hematocrit 43.4 37.0 - 47.0 % [facility] External MCV 93.1 78 - 100 fl [facility] External MCH 30.7 27 - 31 pg [facility] External MCHC 32.9 32 - 36 g/dl [facility] External RDW 11.5 11.5 - 14.0 % [facility] External Platelets 244 150 - 450 K/ul [facility] External MPV 11.6(H) 6 - 9.5 fl [facility] External Neutrophils % 69.6(H) 43 - 65 % [facility] External Lymphocyte % 23.4 20.5 - 45.5 % [facility] External Monocyte % 4.7(L) 5.5 - 11.7 % [facility] External Eosinophil% 1.2 0.9 - 2.9 % [facility] External Basophil % 1.0 0.2 - 1.0 % [facility] External Immature Granulocyte% 0.1 0.0 - 0.8 % [facility] External Nucleated RBC % 0.0 % [facility] External Neutrophil# 5.3(H) 2.2 - 4.8 K/uL [facility] External Lymphocyte# 1.8 1.3 - 2.9 [facility] External Monocyte# 0.4 0.3 - 0.8 [facility] External Eosinophils# 0.1 0 - 0.2 [facility] External Baso# 0.1 0.0 - 1.0 [facility] External Immature Granulocyte Abs 0.01 K/ul [facility] External Nucleated RBC Absolute 0.00 K/uL [facility] External Manual Differential NO [facility] 01/13/2025 5:56 PM EDT 01/13/2025 5:56 PM EDT us Generic [place] Provider LAB BLOOD ORDERABLES Final Result [facility] * Rheumatoid Factor, Plasma (01/13/2025 5:56 PM EDT) External Rheumatoid Factor <10.0 <14.0 IU/mL [facility] Comment: Performed at: [address] [id number] [place]: Mario Guo PhD, Phone: [phone] 01/13/2025 5:56 PM EDT 01/13/2025 5:56 PM EDT [facility] Provider LAB BLOOD ORDERABLES Final Result Performing Organization Address City/[facility]/ZIP Co de Phone Number [facility] * Antistreptolysin O screen (01/13/2025 5:56 PM EDT) External Streptolysin O Antibody 68.2 0.0 - 200.0 IU/mL [facility] Comment: Performed at: [address] [id number] [place]: Mario Guo PhD, Phone: [phone] 01/13/2025 5:56 PM EDT 01/13/2025 5:56 PM EDT [facility] Provider LAB MICROBIOLOGY - G ENERAL ORDERABLES Final Result [facility] * Free T4, Plasma (01/13/2025 5:56 PM EDT) External Free T4 1.03 0.76 - 1.46 ng/dl [facility] 01/13/2025 5:56 PM EDT 01/13/2025 5:56 PM EDT Generic [place] Provider LAB BLOOD ORDERABLES Final Result [facility] * Thyroid Stimulating Hormone, Plasma (01/13/2025 5:56 PM EDT) External TSH 0.73 0.36 - 3.74 mIU/L [facility] 01/13/2025 5:56 PM EDT 01/13/2025 5:56 PM EDT us Generic [place] Provider LAB BLOOD ORDERABLES Final Result Performing Organization Address City/[facility]/ZIP Co de Phone Number [facility] * C-Reactive Protein, Plasma (01/13/2025 5:56 PM EDT) External C-Reactive Protein <0.2 0.05 - 0.300 mg/dL [facility] 01/13/2025 5:56 PM EDT 01/13/2025 5:56 PM EDT [facility] Provider LAB BLOOD ORDERABLES Final Result Performing Organization Address [facility] Co de Phone Number [facility] * (ABNORMAL) Comprehensive Metabolic Panel, Plasma (01/13/2025 5:56 PM EDT) External Sodium 141 136 - 145 mmol/L [facility] External Potassium 3.5(L) 3.6 - 5.0 mmol/L [facility] External Chloride 100 98 - 107 mmol/L [facility] External Carbon Dioxide 30.5 21.0 - 32.0 mmol/L [facility] External Anion Gap (AG) 14.0 [facility] External Glucose 107 70 - 120 mg/dl [facility] External BUN 6(L) 7 - 18 mg/dL [facility] External Creatinine Blood 0.9 0.6 - 1.3 mg/dL [facility] External Estimated GFR 85 60- mlpermin [facility] Comment: GFR LIMITATION: The eGFR equation CKD-EPI 2020 is not applicable for pediatric patients or greater than 90 years of age. The following conditions may alter the GFR result: extremes in body size, malnutrition or obesity, skeletal muscle disease, paraplegia or quadriplegia, vegetarian diet or rapidly changing kiney function. External Osmolality (Calculated) 291 275 - 301 mosm/kg [facility] Comment: OSMOLALITY IS A CALCULATION UTILIZING THE SERUM/PLASMA SODIUM, GLUCOSE AND UREA NITROGEN (BUN) LEVELS. FOR THE MOST ACCURATE RESULT A MEASURED SERUM OSMOLALITY IS SUGGESTED. External Total Protein 8.9(H) 6.4 - 8.2 g/dl [facility] External Albumin 5.0 3.4 - 5.0 g/dl [facility] External Globulin 3.9 [facility] External Albumin/Globuli n Ratio 1.3 0.7 - 2 [facility] External Calcium 9.3 8.5 - 10.5 mg/dl [facility] External Bilirubin Total 0.60 0.10 - 1.00 mg/dL [facility] External AST (SGOT) 13 0 - 37 U/L [facility] External ALT (SGPT) 24 0 - 65 U/L [facility] External Alkaline Phosphatase 98 46 - 116 U/L [facility] 01/13/2025 5:56 PM EDT 01/13/2025 5:56 PM EDT [facility] Provider LAB BLOOD ORDERABLES Final Result Performing Organization Address [facility] Co de Phone Number [facility] * Sedimentation Rate, Automated (01/13/2025 5:56 PM EDT) External Erythrocyte Sedimentation Rate 5 0 - 20 [facility] 01/13/2025 5:56 PM EDT 01/13/2025 5:56 PM EDT [facility] Provider LAB BLOOD ORDERABLES Final Result Performing Organization Address [facility] Co de Phone Number [facility] * (ABNORMAL) CBC W/O Differential (01/13/2025 5:56 PM EDT) External WBC 7.8 4.0 - 10.5 K/ul [facility] External Red Blood Cell (RBC) 4.7 4.2 - 6.4 M/mm3 [facility] External Hemoglobin 14.2 12.5 - 16.0 gm/dl [facility] External Hematocrit 42.3 37.0 - 47.0 % [facility] External MCV 90.8 78 - 100 fl [facility] External MCH 30.5 27 - 31 pg [facility] External MCHC 33.6 32 - 36 g/dl [facility] External RDW 11.7 11.5 - 14.0 % [facility] External Platelets 229 150 - 450 K/ul [facility] External MPV 10.4(H) 6 - 9.5 fl [facility] External Manual Differential NO [facility] 01/13/2025 5:56 PM EDT 01/13/2025 5:56 PM EDT us Generic [place] Provider LAB BLOOD ORDERABLES Final Result [facility] documented in this encounter Visit Diagnoses Not [...] documented as of this encounter Care Teams Sleeve Tailor Relationship Specialty Start Date End Date Beata Dixon APRN [address] [place] [phone] PCP - General Family Medicine 10/10/24 documented as of this encounter
--- OUTSIDE RECORDS SUMMARY | 2025-02-24 12:48 | XMS_ITS | Encounter Summary ---
Author Organization Healthcare Address [address] [place] [address] Care Team Providers Care Carpet Binder Name Role Phone Beata Dixon APRN Primary Care Provider [phone] Bessie Meade DO Primary Care Provider [phone] Beata Dixon APRN Primary Care Provider [phone] Encounter Details Date Type Department Care Team (Late st Contact Info) Description 11/06/2023 Outside Procedure External Location [address] [place] [address] Provider, Sandip [place] Social History Tobacco Use Types Packs/Day [...] place to sleep or slept in a usp (including now)? No 10/24/2023 Utilities Answer Date [...] Office Visit [facility] [address], 3rd [place] [address] MahwahJuan Francisco MD [address] [place] [address] 03/03/2025 10:30 AM EDT Office Visit [facility] Eye Care [address] [place] [address] Abby Fox [address] [place] [phone] 03/12/2025 12:30 PM EDT Consult [facility] [address], 1[address] [place] [address] Thierry Walton DO [address] [place] [address] 03/27/2025 9:00 AM EDT Office Visit Medical Office Building Obstetrics and Gynecology [address] [facility], [address] [place] [address] Nandini Segura, SOUND CONTROLLER [address] [facility] [address] [place] [address] 08/08/2025 9:00 AM EST Office Visit [facility]facial Pain Clinic [facility] [address]214 [address] [place] [address] Jenny Prieto, DDS [address] [facility] [address] [place] [address] documented as of this encounter Procedures Procedure Name Priority Date/Time Associated Diagnosis Comments CT ABDOMEN WO IV CONTRAST 11/06/2023 5:10 PM EDT documented in this encounter Results * CT Abdomen wo IV Contrast (11/06/2023 5:10 PM EDT) Anatomical Region Laterality Modality Abdomen Computed Tomogra phy 11/06/2023 5:10 PM EDT Narrative 11/06/2023 8:16 PM EDT [id number] [place] [address] Name: STEFANYJAYLYN BARKER Exam Date: 11/06/2023 : 1990 Age 33 years Gender: F Physician: GIANCARLO VERDUGO Facility: [facility] Facility HSV: Outpatient Exam: CT ABD PEL W/O (ORAL ONLY) FINAL REPORT TECHNIQUE: Routine axial images through the abdomen and pelvis were obtained. CLINICAL HISTORY: Pt states low abd pain, she believes her bowels have dropped and prolapse through her vagina. FINDINGS: Abdomen:The gallbladder is not visualized.There is left hydronephrosis with considerable renal parenchymal atrophy.No ureteral dilation or calcification.The other solid abdominal organs and right ureter are unremarkable.There is mild increased stool throughout the colon.The GI tract is otherwise unremarkable, including the appendix. Pelvis: The urinary bladder, uterus, and ovaries are normal. There is no pelvic or abdominal ascites, adenopathy or acute osseous abnormality.There is no sign of pelvic floor relaxation. 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 Congenital cystic-dysplastic kidney is also a possibility.No acute abnormality. Reviewed, Interpreted and Dictated by Gunnar Castellanos M.D. Transcribed by April Tucker Authenticated and EASTERN Dictated By: Gunnar Castellanos Transcribed By: Transcribed On: 11/06/2023 8:05 PM Electronically signed by: Gunnar Castellanos 11/06/2023 Thank you for referring JAYLYN CARNES to [facility]. Legally authenticated by PRASANTH LOUIS 2023-11-06 20:05:49 Procedure Note Provider, Generic [place] - 11/06/[address] [address] Name: JAYLYN CARNES Exam Date: 11/06/2023 : 1990 Age 33 years Gender: F Physician: GIANCARLO VERDUGO Facility: [facility] Facility HSV: Outpatient Exam: CT ABD PEL W/O (ORAL ONLY) FINAL REPORT TECHNIQUE: Routine axial images through the abdomen and pelvis were obtained. CLINICAL HISTORY: Pt states low abd pain, she believes her bowels have dropped and prolapse through her vagina. FINDINGS: Abdomen:The gallbladder is not visualized.There is left hydronephrosis with considerable renal parenchymal atrophy.No ureteral dilation or calcification.The other solid abdominal organs and right ureter are unremarkable.There is mild increased stool throughout the colon.The GI tract is otherwise unremarkable, including the appendix. Pelvis: The urinary bladder, uterus, and ovaries are normal. There is no pelvic or abdominal ascites, adenopathy or acute osseous abnormality.There is no sign of pelvic floor relaxation. 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 Congenital cystic-dysplastic kidney is also a possibility.No acute abnormality. Reviewed, Interpreted and Dictated by Gunnar Castellanos M.D. Transcribed by April Tucker Authenticated and EASTERN Dictated By: Gunnar Castellanos Transcribed By: Transcribed On: 11/06/2023 8:05 PM Electronically signed by: Gunnar Castellanos 11/06/2023 Thank you for referring JAYLYN CARNES to [facility]. Legally authenticated by PRASANTH LOUIS 2023-11-06 20:05:49 us Generic [place] Provider IMG CT PROCEDURES Fi nal Result [...] documented as of this encounter Care Teams Carpet Binder Relationship Specialty Start Date End Date Beata Dixon APRN [address] [place] [address] PCP - General Family Medicine 10/03/23 06/24/24 Bessie Meade DO [address] [place] [address] PCP - General 06/25/24 10/09/24 Beata Dixon APRN [address] [place] [phone] PCP - General Family Medicine 10/10/24 documented as of this encounter
--- OUTSIDE RECORDS SUMMARY | 2025-02-24 12:48 | XMS_ITS | Encounter Summary ---
Author Organization Healthcare Address [address] [place] [address] Care Team Providers Care [facility] Name Role Phone Beata Dixon APRN Primary Care Provider [phone] Encounter Details Date Type Department Care Team (Late st Contact Info) Description 02/07/2025 Telephone [facility] [address] [place] [address] Rebeca Lynch, RN - Wound Care Social History Tobacco Use Types Packs/Day [...] time in the past 12 m [facility], were you homeless or living in a [...] encounter Miscellaneous Notes * Telephone Encounter - Rebeca Lynch RN - 02/07/2025 3:23 PM EDT Spoke with patient and let her know that Dr Pimentel recommends that she follow advice from her chief inspector documented in this encounter Plan of Treatment Upcoming Encounters Date Type Department Care Team (Late st Contact Info) Description 02/26/2025 3:45 PM EDT Office Visit [facility] Otolaryngology [address] [place] [address] Juan Francisco Duarte MD [address] [facility] [address] [place] [address] 03/03/2025 10:30 AM EDT Office Visit [facility] [address] [place] [address] Abby Fox [address] [place] [address] 03/12/2025 12:30 PM EDT Consult [facility] [address] [place] [address] Thierry Walton DO [address] [facility] [address] [place] [address] 03/27/2025 9:00 AM EDT Office Visit [facility] Obstetrics and Gynecology [address], [address] [place] [address] Nandini Segura, [employer] [address] [place] [address] 08/08/2025 9:00 AM EST Office Visit [facility] [address] [place] [address] Jenny Prieto DDS [address] [facility] [address] [place] [address] documented as of this encounter [...] documented as of this encounter Care Teams [facility] Relationship Specialty Start Date End Date Beata Dixon APRN [address] [place] [address] PCP - General Family Medicine 10/10/24 documented as of this encounter
--- NOTE | 2025-02-24 13:09 | CT_ITS ---
FINAL REPORT TECHNIQUE: Oral and IV contrast enhanced exam This study was performed with techniques to keep radiation doses as low as reasonably achievable, (ALARA). Individualized dose reduction techniques using automated exposure control or adjustment of mA and/or kV according to the patient''s size were employed. CLINICAL HISTORY: 30 lb wt loss, cachexia, head/face/abd pain FINDINGS: Abdomen: The gallbladder is unremarkable. Liver has an unremarkable CT appearance. The spleen, pancreas and adrenal glands are unremarkable. There is severe, chronic left hydronephrosis without ureteral dilatation suggestive of chronic UPJ obstruction. There is severe parenchymal atrophy of the left kidney. No bowel obstruction or fluid collection is seen. Pelvis: The appendix is not visualized. Uterus is normal. Pelvic bowel loops are unremarkable. No fluid collection or adenopathy is seen. IMPRESSION: No evidence of metastatic disease or adenopathy. Severe left hydronephrosis likely due to chronic left UPJ obstruction. Reviewed, Interpreted and Dictated by Ramya Victor MD Transcribed by Meagan Waterman Authenticated and [facility][1]
--- NOTE | 2025-02-24 13:09 | CT_ITS ---
FINAL REPORT CLINICAL HISTORY: 30 lb wt loss, cachexia, head/face/abd pain FINDINGS: CT NECK WITH CONTRAST TECHNIQUE: Axial CT with IV contrast administration. This study was performed with techniques to keep radiation doses as low as reasonably achievable, (ALARA). Individualized dose reduction techniques using automated exposure control or adjustment of mA and/or kV according to the patient''s size were employed. FINDINGS: There is a low-density mass in the tracheoesophageal groove of the lower neck measuring up to 23 mm. 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 Fluid-filled esophageal diverticulum considered less likely. There is no soft tissue component. Salivary glands are normal. Larynx is unremarkable. Thyroid gland is unremarkable. There is no adenopathy or soft tissue mass. There is no abscess. IMPRESSION: 1. No adenopathy or soft tissue mass. 2. 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 Recommend 6-month follow-up neck CT or MRI for further evaluation and surveillance. Reviewed, Interpreted and Dictated by Ramya Victor MD Transcribed by Meagan Waterman Authenticated and [facility]
--- NOTE | 2025-02-24 13:09 | CT_ITS ---
FINAL REPORT TECHNIQUE: Axial imaging of the sinuses was obtained after the intravenous administration of contrast. This study was performed with techniques to keep radiation doses as low as reasonably achievable (ALARA). Individualized dose reduction techniques using automated exposure control or adjustment of mA and/or kV according to the patient's size were employed. CLINICAL HISTORY: 30 lb wt loss, cachexia, head/face/abd pain FINDINGS: Sinuses and OMCs are clear. There is nasal septal deviation to the left measuring up to 6 mm. No soft tissue masses identified there is no facial adenopathy. Parotid and submandibular gland are unremarkable. IMPRESSION: Unremarkable exam. Reviewed, Interpreted and Dictated by Ramya Victor MD Transcribed by Meagan Waterman Authenticated and [facility]
--- NOTE | 2025-02-24 13:09 | CT_ITS ---
FINAL REPORT TECHNIQUE: Noncontrast exam This study was performed with techniques to keep radiation doses as low as reasonably achievable, (ALARA). Individualized dose reduction techniques using automated exposure control or adjustment of mA and/or kV according to the patient''s size were employed. CLINICAL HISTORY: 30 lb wt loss, cachexia, head/face/abd pain FINDINGS: No abnormal density is seen. Ventricles are normal. There is no hemorrhage. No mass effect is seen. Bone windows show no evidence of fracture. IMPRESSION: No acute findings Reviewed, Interpreted and Dictated by Ramya Victor MD Transcribed by Meagan Waterman Authenticated and [facility]
--- NOTE | 2025-02-24 13:09 | CT_ITS ---
FINAL REPORT TECHNIQUE: After the administration of intravenous contrast, axial images through the chest were performed by computed tomography.This study was performed with techniques to keep radiation doses as low as reasonably achievable, (ALARA). Individualized dose reduction techniques using automated exposure control or adjustment of mA and/or kV according to the patient''s size were employed. CLINICAL HISTORY: 30 lb wt loss, cachexia, head/face/abd pain FINDINGS: There is no axillary adenopathy. There is no hilar or mediastinal adenopathy. The heart size is normal. There is no pericardial or pleural effusion. There are emphysematous changes. No suspicious pulmonary nodule is seen. IMPRESSION: No suspicious pulmonary nodule or evidence of metastatic disease. Reviewed, Interpreted and Dictated by Ramya Victor MD Transcribed by Meagan Waterman Authenticated and . [facility]
[2025-02-24 13:17] LABS: Microscopic, Urine URINE MICROSCOPIC (MICROSCOPIC)
[2025-02-24 13:34] LABS: Hematocrit 41.9 % (37.0-47.0); Hemoglobin 14.6 g/dL (12.2-16.2); Immature Granulocytes % 0.3 %; Mean Corpuscular HGB Conc 34.8 g/dL (31.8-35.4); Mean Corpuscular Hemoglobin 31.4 pg (27.0-31.2); Mean Corpuscular Volume 90.1 fl (81-99); Nucleated Red Blood Cells % 0 %; Platelet Count 248 K/mm3 (142-424); Red Blood Count 4.65 M/mm3 (4.20-5.40); Red Cell Distribution Width-SD 39.8 fL; White Blood Count 6.8 K/mm3 (4.8-10.8)
[2025-02-24 13:35] LABS: Amphetamine/Metha Screen,Urine Negative ng/ml (<1000)
[2025-02-24 13:36] LABS: Barbiturates Screen,Urine Negative ng/ml (<200); Benzodiazepines Screen,Urine Negative ng/ml (<200)
--- NOTE | 2025-02-24 13:37 | ED_ITS ---
<Statement entered by Vandana Tucker MD - 02/26/25 13:54> I was consulted by the VAUGHN, and we discussed the complexity of the problems being addressed. I approved the treatment and management plan for this patient?s care in the Emergency Department, thus performing a substantive portion of the medical decision making Discharge Plan Disposition Chief Complaint: PAIN Prescriptions Prescriptions: No Action buprenorphine-naloxone 8-2 mg film buccal Patient Comments: TAKE 2 FILMS SUBLINGUALLY ONCE DAILY Referrals Follow up/Referrals: Beata Dixon APRN [Primary Care Provider, Medical] - See instructions Clinical Impressions Clinical Impression: Impetigo, ANUG (acute necrotizing ulcerative gingivitis), Cachexia, Head lice, Unintentional weight loss Stand Alone Forms Stand Alone Forms: Transfer Record - ED Print Language Print Language: Ethiopian Discharge ED Provider: Vandana Tucker General Adult HPI <Vandana Tucker MD - Last Filed: 02/24/25 13:46> General Chief complaint: PAIN Stated complaint: facial swelling Time Seen by Provider: 02/24/25 12:55 Mode of Arrival: Ambulatory Source of Information: Patient Description of Symptoms (Recalled from ER Triage Doc. by RN): Patient presents to ED for various symptoms that have been ongoing since March. Patient reports this began with pain in her sinuses and between her eyes. Also reports some neck tenderness when extending fully. Patient reports it hurts to move her eyes side to side. History of Present Illness HPI narrative: Patient is a 34-year-old female brought in today for multiple complaints. She is accompanied by her and initially they went to an ENT clinic for advice on what to do about facial pain and a rash that she has been dealing with for months however given the fact that she was severely cachectic and felt like more was going on the ENT provider escorted her down to the emergency department for further workup. Patient and her state that about 8 months ago she started having abdominal discomfort and before that she was completely normal. Since that time she has lost about 20 to 30 pounds unintentionally, she is very weak and fatigued and unable to care for herself well. She has also had increasing pain swelling and rash on her face with a guerrero honey crusted area. She seen multiple ENT doctors and deputy sheriff court services. No definitive diagnosis has been made. She did state at [address] scan of her abdomen when all this began which was unremarkable. She also believes she may have had a CAT scan of her head at some point. No known diagnosis of cancer. She adamantly denies using any injection drugs. She has a history in the remote past of using Lortabs but is been on Suboxone for a long period of time. Related Data Home Medications ?Medication ?Instructions ?Recorded ?Confirmed buprenorphine 8 mg-naloxone 2 mg buccal 02/24/2502/24 sublingual film Allergies Allergy/AdvReac Type Severity Reaction Status Date / Time No Known Allergies Allergy Verified 02/24/25 11:51 [facility] <Vandana Tucker MD - Last Filed: 02/24/25 13:46> [facility] Disclaimer: The information contained in this section may have been updated after the patient was seen, as this information can be updated by other users. Medical History (Updated 02/24/25 @ 13:38 by Vandana Tucker MD) Face pain Neck pain History of substance abuse Surgical History History of Family History Mother Cancer Father Coronary artery disease Heart attack Social History Smoking Status: Current every day smoker tobacco type: cigarettes packs per day: 1 quit status: not considering quitting alcohol intake: never substance use type: former substance user and painkillers current occupational status: unemployed Travel in the last 8 weeks?: None Have you lived/traveled outside [place] in past 30 days?: No Contact w/someone who lives/traveled outside US past 30 days?: No Exposure to someone with infectious disease in past 14 days?: No Do you have a fever (greater than 100.4 F or 38 C)?: No Have you tested positive for COVID-19?: No Exposed to someone with COVID-19 in past 14 days?: No Do you have a sore throat?: No Do you have a cough?: No Do you have any weakness?: No Do you have any diarrhea?: No Are you experiencing any unusual bleeding?: No Do you have any muscle aches/pain?: No Do you have any abdominal pain?: No Are you experiencing loss of taste or smell?: No Other Medical History Have you received the Pneumonia Vaccine: No <Sia Webb DO - Last Filed: 02/24/25 18:05> ROS Obtained: Yes All systems reviewed & no additional complaints except as documented and Yes Systems reviewed as appropriate & no additional complaints except as documented Physical Exam <Vandana Tucker MD - Last Filed: 02/24/25 13:46> General General appearance: cachectic (Very ill-appearing) Head Head exam: other (Evidence of head lice) ENT ENT exam: Present other (Thickened skin over her cheeks and nose with overlying impetigo; patient is edentulous in the upper teeth but in the lower teeth severe necrotizing dental caries with surrounding gingivitis and tenderness) Neck Neck exam: Absent full ROM (Patient is limited range of motion possibly secondary to pain no obvious lymphadenopathy noted or masses) Chest Chest inspection: Present normal inspection; Absent symmetric chest wall rise Respiratory Respiratory exam: Present normal lung sounds bilaterally Cardiovascular Cardiovascular exam: Present regular rate; Absent normal rhythm Abdominal Exam Abdominal exam: Present soft; Absent distention or tenderness Extremities Exam Extremities exam: Present other (Distal extremities very unkempt with a lot of dirt under her fingernails) <Sia Webb DO - Last Filed: 02/24/25 18:05> Neurological Exam Neurological exam: Present alert and oriented X3 Medical Decision Making <Vandana Tucker MD - Last Filed: 02/24/25 13:46> Medical Records Screening: Per USPSTF and CDC recommendations, given the prevalence of disease in our region, it is our hospital?s policy to screen for HIV and viral Hepatitis for all patients aged 18 and over and those with ongoing risk factors. Vital Signs: 02/24/25 12:44 02/24/25 12:44 02/24/25 13:39 Temperature 98.0 F 98.0 F Temperature Source Axillary Pulse Rate 98 H 78 Pulse Rate [Right] 98 H Respiratory Rate 18 18 Blood Pressure 142/99 H 126/80 Blood Pressure [Right Arm] 142/99 H Blood Pressure Mean 97 Blood Pressure Mean [Right Arm] 113 02 Sat by Pulse Oximetry 99 99 100 02/24/25 14:00 02/24/25 15:30 02/24/25 16:30 Temperature Temperature Source Pulse Rate 81 65 67 Pulse Rate [Right] Respiratory Rate Blood Pressure 129/88 129/87 129/87 Blood Pressure [Right Arm] Blood Pressure Mean 100 96 Blood Pressure Mean [Right Arm] 02 Sat by Pulse Oximetry 97 100 100 Lab Data Lab Results 02/24/25 12:49: Urine Color Yellow, Urine Appearance Clear, Urine pH 6.5, Ur Specific [place] <= 1.005, Urine Protein Negative, Urine Glucose (UA) Negative, Urine Ketones Negative, Urine Blood Negative, Urine Nitrate Negative, Urine Bilirubin Negative, Urine Urobilinogen 0.2, Ur Leukocyte Esterase Negative, Urine RBC None, Urine WBC 3-5, Ur Squamous Epith Cells 3-5, Urine Bacteria Trace, Urine Opiates Screen Negative, Urine Methadone Screen Negative, Ur Barbituates Screen Negative, Ur Phencyclidine Scrn Negative, Ur Amphetamines Screen Negative, U Benzodiazepines Scrn Negative, Urine Cocaine Screen Negative, U Marijuana (THC) Screen Negative 02/24/25 13:17: WBC 6.8, RBC 4.65, Hgb 14.6, Hct 41.9, MCV 90.1, MCH 31.4 H, MCHC 34.8, RDW 12.0, Plt Count 248, MPV 10.6 H, Neut % (Auto) 79.8, Lymph % (Auto) 14.4, Preble % (Auto) 4.3, Eos % (Auto) 0.6, Baso % (Auto) 0.6, Neut # (Auto) 5.4, Lymph # (Auto) 1.0, Preble # (Auto) 0.3, Eos # (Auto) 0.0, Baso # (Auto) 0.0, ESR 13, Sodium 141, Potassium 3.8, Chloride 101, Carbon Dioxide 27, Anion Gap 16.8 H, BUN 6 L, Creatinine 0.70, Estimated Creat Clear 92, Estimated GFR 95, Est GFR ( Amer) 115, Glucose 128 H, Lactate 1.5, Calcium 9.8, Phosphorus 3.3, Magnesium 1.7, Total Bilirubin 0.9, AST 28, ALT 17, Alkaline Phosphatase 70, C-Reactive Protein < 0.3, Total Protein 8.3 H, Albumin 5.2 H, Globulin 3.1, Albumin/Globulin Ratio 1.7, Serum HCG, Qual Negative, HIV (1&2) Ag & Ab Conf Negative 02/24/25 13:17 02/24/25 13:17 Orders (Tests/Meds): ED MEDICATIONS Discontinued Medications Generic Name Dose Route Start Last Admin Trade Name Froylan PRN Reason Stop Dose Admin Lactated Ringer's 1,000 mls @ 999 mls/hr 02/24/25 13:15 02/24/25 16:02 Lactated Ringer's 1000 Ml Bag IV 02/24/25 14:15 Infused .Q1H1M PONCHO Infusion Iopamidol 150 ml 02/24/25 14:48 02/24/25 14:49 Iopamidol-370 (76%);100ml Bottle IV 02/24/25 14:49 150 ml ONCE ONE Administration Sodium Chloride 10 ml 02/24/25 14:48 02/24/25 14:49 Sodium Chloride 0.9% 10ml Syr (Rad Only) IV 02/24/25 14:49 10 ml ONCE ONE Administration ORDERS Category Date Time Status CT abdomen pelvis w con Stat Cat Scan 02/24/25 13:[address] chest w con Stat Cat Scan 02/24/25 13:[address] facial bones w con Stat Cat Scan 02/24/25 13:[address] head/brain wo con Stat Cat Scan 02/24/25 13:[address] soft tissue neck w con Stat Cat Scan 02/24/25 13:09 Completed CBC w/Auto Diff [Complete Blood Count Auto Diff] Stat Lab 02/24/25 13:17 Completed CMP [Comprehensive Metabolic Panel] Stat Lab 02/24/25 13:17 Completed CRP [C-Reactive Protein] Stat Lab 02/24/25 13:17 Completed ESR [Erythrocyte Sedimentation Rate] Stat Lab 02/24/25 13:17 Completed HCG Qualitative, Serum Stat Lab 02/24/25 13:17 Completed HIV Combo Retest Stat Lab 02/24/25 13:17 Completed Hepatitis Panel Stat Lab 02/24/25 13:17 Received Lactic Acid Stat Lab 02/24/25 13:17 Completed Magnesium Stat Lab 02/24/25 13:17 Completed Phosphorous Stat Lab 02/24/25 13:17 Completed UA [Urinalysis and Microscopic] Stat Lab 02/24/25 12:49 Completed UDS [Drug Screen,Urine] Stat Lab 02/24/25 12:49 Completed Blood Culture Stat Micro 02/24/25 13:41 Received Medical Decision Narrative: Patient very ill-appearing 34-year-old cachectic she showed me a picture of her self several months ago and she has lost a significant amount of weight unintentionally. Differential includes metabolic abnormalities infectious etiology such as HIV or other chronic illnesses including autoimmune disorders malignancies etc. Given the fact that she has had head face and abdominal pain during the course of this we will get extensive workup including CT of her head face soft tissue neck chest abdomen pelvis. <Sia Webb, DO - Last Filed: 02/24/25 18:05> Medical Records Medical records reviewed: Yes I reviewed the patient's medical records. Ortega Inquiry Pt receiving controlled substance: No Vital Signs: 02/24/25 12:44 02/24/25 12:44 02/24/25 13:39 Temperature 98.0 F 98.0 F Temperature Source Axillary Pulse Rate 98 H 78 Pulse Rate [Right] 98 H Respiratory Rate 18 18 Blood Pressure 142/99 H 126/80 Blood Pressure [Right Arm] 142/99 H Blood Pressure Mean 97 Blood Pressure Mean [Right Arm] 113 02 Sat by Pulse Oximetry 99 99 100 02/24/25 14:00 02/24/25 15:30 02/24/25 16:30 Temperature Temperature Source Pulse Rate 81 65 67 Pulse Rate [Right] Respiratory Rate Blood Pressure 129/88 129/87 129/87 Blood Pressure [Right Arm] Blood Pressure Mean 100 96 Blood Pressure Mean [Right Arm] 02 Sat by Pulse Oximetry 97 100 100 Lab Data Lab results reviewed: Yes I reviewed the patient's lab results. Lab Results 02/24/25 12:49: Urine Color Yellow, Urine Appearance Clear, Urine pH 6.5, Ur Specific [place] <= 1.005, Urine Protein Negative, Urine Glucose (UA) Negative, Urine Ketones Negative, Urine Blood Negative, Urine Nitrate Negative, Urine Bilirubin Negative, Urine Urobilinogen 0.2, Ur Leukocyte Esterase Negative, Urine RBC None, Urine WBC 3-5, Ur Squamous Epith Cells 3-5, Urine Bacteria Trace, Urine Opiates Screen Negative, Urine Methadone Screen Negative, Ur Barbituates Screen Negative, Ur Phencyclidine Scrn Negative, Ur Amphetamines Screen Negative, U Benzodiazepines Scrn Negative, Urine Cocaine Screen Negative, U Marijuana (THC) Screen Negative 02/24/25 13:17: WBC 6.8, RBC 4.65, Hgb 14.6, Hct 41.9, MCV 90.1, MCH 31.4 H, MCHC 34.8, RDW 12.0, Plt Count 248, MPV 10.6 H, Neut % (Auto) 79.8, Lymph % (Auto) 14.4, Preble % (Auto) 4.3, Eos % (Auto) 0.6, Baso % (Auto) 0.6, Neut # (Auto) 5.4, Lymph # (Auto) 1.0, Pre[place] # (Auto) 0.3, Eos # (Auto) 0.0, Baso # (Auto) 0.0, ESR 13, Sodium 141, Potassium 3.8, Chloride 101, Carbon Dioxide 27, Anion Gap 16.8 H, BUN 6 L, Creatinine 0.70, Estimated Creat Clear 92, Estimated GFR 95, Est GFR ( Amer) 115, Glucose 128 H, Lactate 1.5, Calcium 9.8, Phosphorus 3.3, Magnesium 1.7, Total Bilirubin 0.9, AST 28, ALT 17, Alkaline Phosphatase 70, C-Reactive Protein < 0.3, Total Protein 8.3 H, Albumin 5.2 H, Globulin 3.1, Albumin/Globulin Ratio 1.7, Serum HCG, Qual Negative, HIV (1&2) Ag & Ab Conf Negative Orders (Tests/Meds): ED MEDICATIONS Discontinued Medications Generic Name Dose Route Start Last Admin Trade Name Freq PRN Reason Stop Dose Admin Lactated Ringer's 1,000 mls @ 999 mls/hr 02/24/25 13:15 02/24/25 16:02 Lactated Ringer's 1000 Ml Bag IV 02/24/25 14:15 Infused .Q1H1M PONCHO Infusion Iopamidol 150 ml 02/24/25 14:48 02/24/25 14:49 Iopamidol-370 (76%);100ml Bottle IV 02/24/25 14:49 150 ml ONCE ONE Administration Sodium Chloride 10 ml 02/24/25 14:48 02/24/25 14:49 Sodium Chloride 0.9% 10ml Syr (Rad Only) IV 02/24/25 14:49 10 ml ONCE ONE Administration ORDERS Category Date Time Status CT abdomen pelvis w con Stat Cat Scan 02/24/25 13:[address] chest w con Stat Cat Scan 02/24/25 13:[address] facial bones w con Stat Cat Scan 02/24/25 13:[address] head/brain wo con Stat Cat Scan 02/24/25 13:[address] soft tissue neck w con Stat Cat Scan 02/24/25 13:09 Completed CBC w/Auto Diff [Complete Blood Count Auto Diff] Stat Lab 02/24/25 13:17 Completed CMP [Comprehensive Metabolic Panel] Stat Lab 02/24/25 13:17 Completed CRP [C-Reactive Protein] Stat Lab 02/24/25 13:17 Completed ESR [Erythrocyte Sedimentation Rate] Stat Lab 02/24/25 13:17 Completed HCG Qualitative, Serum Stat Lab 02/24/25 13:17 Completed HIV Combo Retest Stat Lab 02/24/25 13:17 Completed Hepatitis Panel Stat Lab 02/24/25 13:17 Received Lactic Acid Stat Lab 02/24/25 13:17 Completed Magnesium Stat Lab 02/24/25 13:17 Completed Phosphorous Stat Lab 02/24/25 13:17 Completed UA [Urinalysis and Microscopic] Stat Lab 02/24/25 12:49 Completed UDS [Drug Screen,Urine] Stat Lab 02/24/25 12:49 Completed Blood Culture Stat Micro 02/24/25 13:41 Received Medical Decision Narrative: Jamin Tucker MD Patient very ill-appearing 34-year-old cachectic she showed me a picture of her self several months ago and she has lost a significant amount of weight unintentionally. Differential includes metabolic abnormalities infectious etiology such as HIV or other chronic illnesses including autoimmune disorders malignancies etc. Given the fact that she has had head face and abdominal pain during the course of this we will get extensive workup including CT of her head face soft tissue neck chest abdomen pelvis. I assumed care of the patient at 1500 Sia Webb DO Patient's labs were reviewed and interpreted by myself: CBC showed hemoglobin was stable. Anion gap mildly elevated at 16.8. CRP unremarkable. UA showed no evidence of infection. Urine drug screen negative. HIV negative. CT scan of the head, face, neck, chest, and abdomen showed no evidence of masses or other acute infectious process. Patient was seen in the in clinic today and was sent down to our emergency department for further workup given her significant facial pain and pressure. On my evaluation, patient had honey crusting lesions on her nails as well as her cheeks. Patient has significant pain with mild pressure to face. Patient had very poor dentition of her bottom teeth and appears very unkept. Patient reports that she is unable to eat secondary to the pain, and they have been trying to do such as boost and other liquids to allow her to eat. Patient states that she feels very feels that she is unable to keep her head up due to the weakness and is unable to open her mouth. notes has had some reddening and purpling of her hands and feet and have been seen by dermatology and rheumatology without answers. Patient actively denies drug use. States that her teeth have started to slowly deteriorate over the last 8 months. Patient has lost over 30 pounds unintentionally as noted above. Although patient's workup is largely unremarkable, my concern is that patient has an infectious etiology vs autoimmune disease leading to patient's symptoms. I feel that the patient likely requires higher level of care and or specialtists as patient has been seen outpatient wtih unclear etiology. Patient appears very unkept, starkly different from at bedside. Lice was found on her fingertips and dirt under her nails. No concern for abuse after multiple provider questioning. Patient was accepted to the [facility] by Dr. Lyle Critical Care <Sia Webb, DO - Last Filed: 02/24/25 18:05> Critical Care Time Critical Care Time: No
[2025-02-24 13:39] VITALS: BP 126/80; PULSE 78; O2SAT 100
[2025-02-24 13:39] LABS: Methadone Screen,Urine Negative ng/ml (<300)
[2025-02-24] MEDS: LACTATED RINGERS 1000ML 1,000 ML 999 ML IV (13:39)
[2025-02-24 13:40] LABS: Opiate Screen,Urine Negative ng/ml (<300)
[2025-02-24 13:41] LABS: Phencyclidine Screen,Urine Negative ng/ml (<25)
[2025-02-24 13:51] LABS: Chloride 101 mmol/L (98-107)
[2025-02-24 13:52] LABS: Albumin Level 5.2 g/dl (3.5-5.0); Potassium 3.8 mmoL/L (3.5-5.1); Sodium 141 mmol/L (136-145)
[2025-02-24 13:54] LABS: Alanine Aminotransferase 17 U/L (12-78); Blood Urea Nitrogen 6 mg/dl (7-17); Creatinine Clearance Estimated 92 mL/min (50-200); Creatinine,Serum 0.70 mg/dl (0.52-1.04); Estimated Glomerular Filt Rate 95 ml/min (>60); GFR (African American) 115 ML/MIN (>60); Magnesium 1.7 mg/dl (1.6-2.3); Phosphorous 3.3 mg/dl (2.5-4.5)
[2025-02-24 13:55] LABS: Albumin/Globulin Ratio 1.7 (1.1-1.8); Alkaline Phosphatase 70 U/L (38-126); Anion Gap 16.8 mEq/L (5-15); Aspartate Amino Transferase 28 U/L (14-36); Bilirubin,Total 0.9 mg/dl (0.2-1.3); Calcium 9.8 mg/dl (8.4-10.2); Carbon Dioxide 27 mmol/L (22.0-30.0); Globulin 3.1 g/dL (1.3-3.2); Glucose 128 mg/dl (74-100); Total Protein,Serum 8.3 g/dl (6.3-8.2)
[2025-02-24 13:56] LABS: Bilirubin,Urine Negative (Negative); Color,Urine YELLOW (Yellow); Glucose,Urine (UA) Negative (Negative); Ketones,Urine Negative (Negative); Leukocyte Esterase,Urine Negative (Negative); PH,Urine 6.5 (5.0-8.5); Protein,Urine Negative (Negative); Specific Gravity, Urine <= 1.005 (1.005-1.030); Urobilinogen,Urine 0.2 EU/dl (0.2)
[2025-02-24 14:00] VITALS: BP 129/88; PULSE 81; O2SAT 97
[2025-02-24 14:14] LABS: HCG Qualitative, Serum Negative (Negative)
[2025-02-24 14:38] LABS: C-Reactive Protein < 0.3 mg/L (0-4)
[2025-02-24] MEDS: SODIUM CHLORIDE 0.9% 10ML SYR (RAD ONLY) 10 ML IV (14:49)
[2025-02-24] MEDS: IOPAMIDOL-370 (76%);100ML BOTTLE 150 ML IV (14:49)
[2025-02-24 14:51] LABS: Bacteria,Urine Trace /lpf
[2025-02-24 14:59] LABS: HIV Combo Retest NEGATIVE (Negative)
[2025-02-24 15:30] VITALS: BP 129/87; PULSE 65; O2SAT 100
[2025-02-24 16:30] VITALS: BP 129/87; PULSE 67; O2SAT 100
--- NOTE | 2025-02-24 17:39 | PC.NURSE ---
Called [facility] for a poss transfer.
--- NOTE | 2025-02-24 17:47 | PC.NURSE ---
Dr Webb speaking with MD's
--- NOTE | 2025-02-24 17:51 | [facility].EDGENADL ---
Discharge Plan Disposition Chief Complaint: PAIN Prescriptions Prescriptions: No Action buprenorphine-naloxone 8-2 mg film buccal Patient Comments: TAKE 2 FILMS SUBLINGUALLY ONCE DAILY Referrals Follow up/Referrals: Beata Dixon APRN [Primary Care Provider, Medical] - See instructions Clinical Impressions Clinical Impression: Impetigo, ANUG (acute necrotizing ulcerative gingivitis), Cachexia, Head lice, Unintentional weight loss Stand Alone Forms Stand Alone Forms: Transfer Record - ED Print Language Print Language: Swedish Discharge ED Provider: Vandana Tucker General Adult HPI General Chief complaint: PAIN Stated complaint: facial swelling Time Seen by Provider: 02/24/25 12:55 Mode of Arrival: Ambulatory Source of Information: Patient Description of Symptoms (Recalled from ER Triage Doc. by RN): Patient presents to ED for various symptoms that have been ongoing since March. Patient reports this began with pain in her sinuses and between her eyes. Also reports some neck tenderness when extending fully. Patient reports it hurts to move her eyes side to side. Related Data Home Medications ?Medication ?Instructions ?Recorded ?Confirmed buprenorphine 8 mg-naloxone 2 mg buccal 02/24/25 02/24/25 sublingual film Allergies Allergy/AdvReac Type Severity Reaction Status Date / Time No Known Allergies Allergy Verified 02/24/25 11:51 [facility] Disclaimer: The information contained in this section may have been updated after the patient was seen, as this information can be updated by other users. Medical History (Updated 02/24/25 @ 13:38 by Vandana Tucker MD) Face pain Neck pain History of substance abuse Surgical History History of Family History Mother Cancer Father Coronary artery disease Heart attack Social History Smoking Status: Current every day smoker tobacco type: cigarettes packs per day: 1 quit status: not considering quitting alcohol intake: never substance use type: former substance user and painkillers current occupational status: unemployed Travel in the last 8 weeks?: None Have you lived/traveled outside [place] in past 30 days?: No Contact w/someone who lives/traveled outside [place] past 30 days?: No Exposure to someone with infectious disease in past 14 days?: No Do you have a fever (greater than 100.4 F or 38 C)?: No Have you tested positive for COVID-19?: No Exposed to someone with COVID-19 in past 14 days?: No Do you have a sore throat?: No Do you have a cough?: No Do you have any weakness?: No Do you have any diarrhea?: No Are you experiencing any unusual bleeding?: No Do you have any muscle aches/pain?: No Do you have any abdominal pain?: No Are you experiencing loss of taste or smell?: No Other Medical History Have you received the Pneumonia Vaccine: No Physical Exam General General appearance: cachectic (Very ill-appearing) Medical Decision Making Medical Records Screening: Per USPSTF and CDC recommendations, given the prevalence of disease in our region, it is our hospital?s policy to screen for HIV and viral Hepatitis for all patients aged 18 and over and those with ongoing risk factors. Vital Signs: 02/24/25 12:44 02/24/25 12:44 02/24/25 13:39 Temperature 98.0 F 98.0 F Temperature Source Axillary Pulse Rate 98 H 78 Pulse Rate [Right] 98 H Respiratory Rate 18 18 Blood Pressure 142/99 H 126/80 Blood Pressure [Right Arm] 142/99 H Blood Pressure Mean 97 Blood Pressure Mean [Right Arm] 113 02 Sat by Pulse Oximetry 99 99 100 02/24/25 14:00 02/24/25 15:30 02/24/25 16:30 Temperature Temperature Source Pulse Rate 81 65 67 Pulse Rate [Right] Respiratory Rate Blood Pressure 129/88 129/87 129/87 Blood Pressure [Right Arm] Blood Pressure Mean 100 96 Blood Pressure Mean [Right Arm] 02 Sat by Pulse Oximetry 97 100 100 Lab Data Lab Results 02/24/25 12:49: Urine Color Yellow, Urine Appearance Clear, Urine pH 6.5, Ur Specific [place] <= 1.005, Urine Protein Negative, Urine Glucose (UA) Negative, Urine Ketones Negative, Urine Blood Negative, Urine Nitrate Negative, Urine Bilirubin Negative, Urine Urobilinogen 0.2, Ur Leukocyte Esterase Negative, Urine RBC None, Urine WBC 3-5, Ur Squamous Epith Cells 3-5, Urine Bacteria Trace, Urine Opiates Screen Negative, Urine Methadone Screen Negative, Ur Barbituates Screen Negative, Ur Phencyclidine Scrn Negative, Ur Amphetamines Screen Negative, U Benzodiazepines Scrn Negative, Urine Cocaine Screen Negative, U Marijuana (THC) Screen Negative 02/24/25 13:17: WBC 6.8, RBC 4.65, Hgb 14.6, Hct 41.9, MCV 90.1, MCH 31.4 H, MCHC 34.8, RDW 12.0, Plt Count 248, MPV 10.6 H, Neut % (Auto) 79.8, Lymph % (Auto) 14.4, [place] % (Auto) 4.3, Eos % (Auto) 0.6, Baso % (Auto) 0.6, Neut # (Auto) 5.4, Lymph # (Auto) 1.0, [place] # (Auto) 0.3, Eos # (Auto) 0.0, Baso # (Auto) 0.0, ESR 13, Sodium 141, Potassium 3.8, Chloride 101, Carbon Dioxide 27, Anion Gap 16.8 H, BUN 6 L, Creatinine 0.70, Estimated Creat Clear 92, Estimated GFR 95, Est GFR ( Amer) 115, Glucose 128 H, Lactate 1.5, Calcium 9.8, Phosphorus 3.3, Magnesium 1.7, Total Bilirubin 0.9, AST 28, ALT 17, Alkaline Phosphatase 70, C-Reactive Protein < 0.3, Total Protein 8.3 H, Albumin 5.2 H, Globulin 3.1, Albumin/Globulin Ratio 1.7, Serum HCG, Qual Negative, HIV (1&2) Ag & Ab Conf Negative 02/24/25 13:17 02/24/25 13:17 Orders (Tests/Meds): ED MEDICATIONS Discontinued Medications Generic Name Dose Route Start Last Admin Trade Name Froylan PRN Reason Stop Dose Admin Lactated Ringer's 1,000 mls @ 999 mls/hr 02/24/25 13:15 02/24/25 16:02 Lactated Ringer's 1000 Ml Bag IV 02/24/25 14:15 Infused .Q1H1M PONCHO Infusion Iopamidol 150 ml 02/24/25 14:48 02/24/25 14:49 Iopamidol-370 (76%);100ml Bottle IV 02/24/25 14:49 150 ml ONCE ONE Administration Sodium Chloride 10 ml 02/24/25 14:48 02/24/25 14:49 Sodium Chloride 0.9% 10ml Syr (Rad Only) IV 02/24/25 14:49 10 ml ONCE ONE Administration ORDERS Category Date Time Status CT abdomen pelvis w con Stat Cat Scan 02/24/25 13:[address] chest w con Stat Cat Scan 02/24/25 13:[address] facial bones w con Stat Cat Scan 02/24/25 13:[address] head/brain wo con Stat Cat Scan 02/24/25 13:[address] soft tissue neck w con Stat Cat Scan 02/24/25 13:09 Completed CBC w/Auto Diff [Complete Blood Count Auto Diff] Stat Lab 02/24/25 13:17 Completed CMP [Comprehensive Metabolic Panel] Stat Lab 02/24/25 13:17 Completed CRP [C-Reactive Protein] Stat Lab 02/24/25 13:17 Completed ESR [Erythrocyte Sedimentation Rate] Stat Lab 02/24/25 13:17 Completed HCG Qualitative, Serum Stat Lab 02/24/25 13:17 Completed HIV Combo Retest Stat Lab 02/24/25 13:17 Completed Hepatitis Panel Stat Lab 02/24/25 13:17 Received Lactic Acid Stat Lab 02/24/25 13:17 Completed Magnesium Stat Lab 02/24/25 13:17 Completed Phosphorous Stat Lab 02/24/25 13:17 Completed UA [Urinalysis and Microscopic] Stat Lab 02/24/25 12:49 Completed UDS [Drug Screen,Urine] Stat Lab 02/24/25 12:49 Completed Blood Culture Stat Micro 02/24/25 13:41 Received
[2025-02-24 18:25] VITALS: BP 130/97; PULSE 69; RESP 16; TEMP 36.9; O2SAT 100
== END 2025-02-24 18:30 | disposition other institution (70) ==
PROVIDERS: Emergency Provider Student in an Organized Health Care Education/Training Program; PCP Nurse Practitioner Family
DX: A69.1 Other Vincent's infections (principal); R22.0 Localized swelling, mass and lump, head; L01.00 Impetigo, unspecified; R64 Cachexia; B85.0 Pediculosis due to Pediculus humanus capitis; F19.11 Other psychoactive substance abuse, in remission; F17.210 Nicotine dependence, cigarettes, uncomplicated
CPT/HCPCS: 70450; 70487; 70491; 71260; 74177; 80053; 80074; 80307; 81001; 83605; 83735; 84100; 84703; 85025; 85651; 86140; 87040; 96360; 99285; J7120; Q9967